=== PATIENT | male | born 1975 | race Caucasian/White ===

== ENCOUNTER 2017-11-28 07:51 | Inpatient (IN) | payer BC ==
[2017-11-28] VITALS (9 sets, daily range): BP systolic 122–147; BP diastolic 63–84; PULSE 80–97; RESP 18–20; TEMP 98.2–99.7; O2SAT 93–97
[~2017-11-28] VITALS: Ht 185.4 cm; Wt 101.0 kg
[~2017-11-28 07:51] MED LIST: ALBU17I INH; ALBU8I INH; DUONI NEB; PRED10 PO; PROP1TAB66 PO; PROT40TA PO; RIFA550 PO; TIOT18I INH; URSO300 PO
[2017-11-28] MEDS ORDERED: URSO300C2 PO (08:09)
[2017-11-28] MEDS ORDERED: PANT40TA3 PO (08:09)
[2017-11-28] MEDS ORDERED: SPIR25TA PO (08:09)
[2017-11-28] MEDS ORDERED: FURO20TA PO (08:09)
[2017-11-28] MEDS ORDERED: CARV6.252 PO (08:09)
[2017-11-28] MEDS ORDERED: KLOR10TA PO (08:09)
[2017-11-28] MEDS ORDERED: LORazepam 2 MG/ML VIAL IV PUSH ONE (08:15)
[2017-11-28 08:24] LABS: AUTOMATED NEUTROPHIL # 4.6 TH/MM3 (1.8-7.7); BASOPHIL # 0.1 TH/MM3 (0-0.2); EOSINOPHIL % 0.6 % (0.0-4.0); HEMATOCRIT 36.2 % (39.0-51.0); HEMOGLOBIN 12.7 GM/DL (13.0-17.0); LYMPH % 6.7 % (9.0-44.0); LYMPHOCYTE # 0.4 TH/MM3 (1.0-4.8); MEAN CELL VOLUME 100.3 FL (80.0-100.0); MEAN CORPUSCULAR HEMOGLOBIN 35.1 PG (27.0-34.0); MEAN PLATELET VOLUME 9.1 FL (7.0-11.0); MONO % 11.9 % (0.0-8.0); MONOCYTE # 0.7 TH/MM3 (0-0.9); NEUT % 79.8 % (16.0-70.0); RED BLOOD COUNT 3.61 MIL/MM3 (4.50-5.90); RED CELL DISTRIBUTION WIDTH 20.9 % (11.6-17.2); WHITE BLOOD COUNT 5.7 TH/MM3 (4.0-11.0)
--- NOTE | 2017-11-28 08:30 | PD ---
HPI Chief Complaint: Seizure Time Seen by Provider: 08:04 Travel History International Travel<30 days: No Contact w/Intl Traveler<30days: No Traveled to known affect area: No History of Present Illness HPI 42yo M with PMH of alcohol abuse, cirrhosis presents to the ED with a possible seizure today. Pt has been trying to wean himself off alcohol, last drink was 3 days ago. As per nurse, pt's said he was not feeling well so helped him down and he had a seizure. Denies any fever, chest pain, sob, n/v, abdominal pain, focal weakness or numbness. Pt is AAOx3. PFSH Past Medical History Arthritis: Yes (OSTEO) Asthma: Yes Anxiety: No Depression: No Heart Rhythm Problems: No Cancer: No Cardiovascular Problems: Yes (HTN) High Cholesterol: No Chest Pain: No Congestive Heart Failure: No Cirrhosis: Yes COPD: No Cerebrovascular Accident: No Diminished Hearing: No Endocrine: Yes GERD: Yes Genitourinary: No Hiatal Hernia: No Hypertension: Yes Immune Disorder: No Inguinal Hernia: Yes (SURGICAL REPAIR) Implanted Vascular Access Dvce: Yes Musculoskeletal: Yes Neurologic: Yes Psychiatric: No Reproductive: No Respiratory: Yes (ASTHMA) Migraines: No Pneumonia: Yes Seizures: No Sleep Apnea: No Thyroid Disease: Yes (HAD THYROID RADIATED IN MIDDLE SCHOOL) Ulcer: No Tetanus Vaccination: > 5 Years Influenza Vaccination: No Past Surgical History Abdominal Surgery: Yes (RIGHT INGUINAL HERNIA REPAIR) AICD: No Arteriovenous Shunt: No Gynecologic Surgery: Yes Insulin Pump: No Joint Replacement: No Oral Surgery: Yes (WISDOM TEETH) Pacemaker: No Social History Alcohol Use: Yes (HX OF ALCOHOLISM) Tobacco Use: No Substance Use: No Allergies-Medications (Allergen,Severity, Reaction): Coded Allergies: No Known Allergies (Verified , 03/25/16) Reported Meds & Prescriptions Reported Meds & Active Scripts Active Reported Pantoprazole (Pantoprazole Sodium) 40 Mg Tab 40 Mg PO DAILY Furosemide 20 Mg Tab 20 Mg PO BID Carvedilol 6.25 Mg Tab 6.25 Mg PO BID Spironolactone 25 Mg Tab 25 Mg PO DAILY Klor-Con 10 (Potassium Chloride) 10 Meq Tab 10 Meq PO DAILY Ursodiol 300 Mg Cap 300 Mg PO BID Review of Systems Except as stated in HPI: all other systems reviewed are Neg Physical Exam Narrative GENERAL: 42yo M in mild distress. SKIN: Focused skin assessment warm/dry. Jaundice. HEAD: Atraumatic. Normocephalic. EYES: Pupils equal and round at 4mm bilaterally. +Sclera icterus. ENT: No nasal bleeding or discharge. Mucous membranes pink and moist. NECK: Trachea midline. No JVD. CARDIOVASCULAR: Regular rate and rhythm. No murmur appreciated. RESPIRATORY: No accessory muscle use. Clear to auscultation. Breath sounds equal bilaterally. GASTROINTESTINAL: Abdomen soft, non-tender, nondistended. MUSCULOSKELETAL: +Ecchymoses in left scapula that appears old. +Ecchymoses in right humerus. Distal pulses intact. NEUROLOGICAL: Awake and alert. No obvious cranial nerve deficits. Motor grossly within normal limits. Normal speech. Mild resting tremors in bilateral hands. Mild tongue fasciculations. +Bite etienne on bite but no active bleeding or laceration that needs repair. Data Data Last Documented VS Vital Signs Date Time Temp Pulse Resp B/P (MAP) Pulse Ox O2 Delivery O2 Flow Rate FiO2 11/28/17 07:58 98.3 94 20 133/79 (97) 93 Orders Orders Complete Blood Count With Diff (11/28/17 08:04) Basic Metabolic Panel (Bmp) (11/28/17 08:04) Magnesium (Mg) (11/28/17 08:04) Chest, Single Ap (11/28/17 ) Ct Brain W/O Iv Contrast(Rout) (11/28/17 ) Alcohol (Ethanol) (11/28/17 08:04) Ammonia (11/28/17 08:14) Lorazepam Inj (Ativan Inj) (11/28/17 08:15) Lactulose Liq (Lactulose Liq) (11/28/17 09:00) Admit Order (Ed Use Only) (11/28/17 09:59) Labs Laboratory Tests Test 11/28/17 08:12 11/28/17 08:20 White Blood Count 5.7 TH/MM3 Red Blood Count 3.61 MIL/MM3 Hemoglobin 12.7 GM/DL Hematocrit 36.2 % Mean Corpuscular Volume 100.3 FL Mean Corpuscular Hemoglobin 35.1 PG Mean Corpuscular Hemoglobin Concent 35.0 % Red Cell Distribution Width 20.9 % Platelet Count 14 TH/MM3 Mean Platelet Volume 9.1 FL Neutrophils (%) (Auto) 79.8 % Lymphocytes (%) (Auto) 6.7 % Monocytes (%) (Auto) 11.9 % Eosinophils (%) (Auto) 0.6 % Basophils (%) (Auto) 1.0 % Neutrophils # (Auto) 4.6 TH/MM3 Lymphocytes # (Auto) 0.4 TH/MM3 Monocytes # (Auto) 0.7 TH/MM3 Eosinophils # (Auto) 0.0 TH/MM3 Basophils # (Auto) 0.1 TH/MM3 CBC Comment AUTO DIFF Differential Comment AUTO DIFF CONFIRMED Platelet Estimate RARE Platelet Morphology Comment NORMAL Target Cells 2+ Blood Urea Nitrogen 7 MG/DL Creatinine 0.80 MG/DL Random Glucose 171 MG/DL Calcium Level 7.9 MG/DL Magnesium Level 1.5 MG/DL Sodium Level 132 MEQ/L Potassium Level 3.4 MEQ/L Chloride Level 96 MEQ/L Carbon Dioxide Level 20.8 MEQ/L Anion Gap 15 MEQ/L Estimat Glomerular Filtration Rate 107 ML/MIN Total Bilirubin 18.1 MG/DL Direct Bilirubin 12.5 MG/DL Indirect Bilirubin 5.6 MG/DL Aspartate Amino Transf (AST/SGOT) 169 U/L Alanine Aminotransferase (ALT/SGPT) 27 U/L Alkaline Phosphatase 315 U/L Total Protein 7.1 GM/DL Albumin 2.6 GM/DL Lipase 199 U/L Ethyl Alcohol Level LESS THAN 3 MG/DL Ammonia 79 MCMOL/L MDM Medical Decision Making Medical Screen Exam Complete: Yes Emergency Medical Condition: Yes Interpretation(s) EKG: NSR 94bpm. LAD. No ST segment elevation or depression. TWI III. Differential Diagnosis Alcohol withdrawal seizure vs. ICH vs. intracranial mass vs. electrolyte abnormality Narrative Course 42yo M with PMH of cirrhosis and alcohol abuse here with possible seizure. Labs reviewed, thrombocytopenia at 14,000. This is much lower compare to his prior 2 years ago. Ammonia elevated at 79, pt given lactulose. CXR showed cardiomegaly. CT brain negative. Pt given ativan for alcohol withdrawal. Discussed with resident physician and admitted to their service. Diagnosis Primary Impression: Alcohol withdrawal Qualified Codes: F10.239 - Alcohol dependence with withdrawal, unspecified Additional Impression: Thrombocytopenia Admitting Information Admitting Physician Requests: Admit SunshinePorsha DO Nov 28, 2017 08:30
[2017-11-28 08:37] LABS: PLATELET COUNT 14 TH/MM3 (150-450)
[2017-11-28 08:38] LABS: BICARBONATE 20.8 MEQ/L (21.0-32.0); BLOOD UREA NITROGEN 7 MG/DL (7-18); CALCIUM 7.9 MG/DL (8.5-10.1); CHLORIDE 96 MEQ/L (98-107); GLOMERULAR FILTRATION RATE 107 ML/MIN (>89); GLUCOSE,RANDOM 171 MG/DL (74-106); MAGNESIUM 1.5 MG/DL (1.5-2.5); SODIUM (NA) 132 MEQ/L (136-145)
--- NOTE | 2017-11-28 08:42 | RADRPT ---
EXAM DATE/TIME: 11/28/2017 08:23 [facility] COMPARISON: CT BRAIN W/O CONTRAST, March 27, 2016, 21:05. INDICATIONS : New onset seizure RADIATION DOSE: 37.14 CTDIvol (mGy) MEDICAL HISTORY : Hypertension. Asthma SURGICAL HISTORY : None. ENCOUNTER: Initial ACUITY: 1 day PAIN SCALE: 1/10 LOCATION: cranial TECHNIQUE: Multiple contiguous axial images were obtained of the head. Using automated exposure control and adj ustment of the mA and/or kV according to patient size, radiation dose was kept as low as reasonably a chievable to obtain optimal diagnostic quality images. DICOM format image data is available electro nically for review and comparison. FINDINGS: CEREBRUM: The ventricles are normal for age. No evidence of midline shift, mass lesion, hemorrhage or acute in farction. No extra-axial fluid collections are seen. POSTERIOR FOSSA: The cerebellum and brainstem are intact. The 4th ventricle is midline. The cerebellopontine angle i s unremarkable. EXTRACRANIAL: The visualized portion of the orbits is intact. SKULL: The calvaria is intact. No evidence of skull fracture. CONCLUSION: No acute disease. Francesco Hernandez MD on November 28, 2017 at 8:37 Board Certified Radiologist. This report was verified electronically.
[2017-11-28] MEDS ORDERED: LACTULOSE SYRUP 20 GM/30 ML CUP PO ONE (09:00)
[2017-11-28 09:05] LABS: TARGET CELLS 2+ (NORMAL)
--- NOTE | 2017-11-28 09:33 | RADRPT ---
EXAM DATE/TIME: 11/28/2017 08:29 [facility] COMPARISON: CHEST SINGLE AP, March 31, 2016, 3:16. INDICATIONS : Patient fell and had episode of seizures, some shortness of breath. MEDICAL HISTORY : Hypertension. Osteoarthritis. Thyroid disease. Asthma. Gallbladder disease. GERD. Liver disease SURGICAL HISTORY : Oral surgery. Right inguinal hernia repair. Femur and humerus fracture repair ENCOUNTER: Initial ACUITY: 1 day PAIN SCORE: 0/10 LOCATION: upper chest FINDINGS: The cardiac silhouette is enlarged in transverse diameter. The lungs are free of acute parenchymal op acity. No effusions are identified. CONCLUSION: Cardiomegaly. No acute pulmonary disease. Artur Magaña MD on November 28, 2017 at 9:30 Board Certified Radiologist. This report was verified electronically.
--- NOTE | 2017-11-28 10:39 | HHI.HP ---
HPI Service Family Medicine Primary Care Physician No Primary Care Physician Admission Diagnosis Hepatic encephalopathy, withdrawal seizure Diagnoses: International Travel<30 Days: No Contact w/Intl Traveler<30days: No Known Affected Area: No History of Present Illness Mr. Connors is a 42yo white male past medical history of cirrhosis, HTN, and COPD presenting to the ED after a possible seizure at home. His reports that he got out of bed confused this morning. He then clenched up his arms and started shaking. His helped him to the floor where he continued to be clenched and shaking and was not responding to her when she was talking to him. She then called 911. He seemed to come back to when the EMS arrived at the house. He states that he does not remember anything that happened from this morning. He currently feels confused and tired. No achy muscles. Of note he quit drinking alcohol a day and a half ago. He would drink a 12 pack of beer a day at minimum up to a case a day. He had previously quit alcohol but started up again in September when his mother . He then decided to quit cold turkey. Lately he has been feeling shaky, having blurry vision. He is noticed easy bruising for a few weeks with or without trauma. He also has prolonged bleeding when he nicks himself shaving. No blood in his stool or urine. His noticed that he has been jaundiced for about 3 days. No abdominal pain. Sees Dr. Valdovinos in [place]. Last saw in October. Last hospitalized in March 2016 for alcohol withdrawal and jaundice. (Monika Oden MD R1) Review of Systems Constitutional: COMPLAINS OF: Fatigue, DENIES: Fever, Weight gain, Weight loss , Chills Eyes: COMPLAINS OF: Blurred vision Ears, nose, mouth, throat: DENIES: Tinnitus, Throat pain, Running Nose Respiratory: DENIES: Cough, Shortness of breath Cardiovascular: DENIES: Chest pain, Palpitations, Lower Extremity Edema Gastrointestinal: COMPLAINS OF: Vomiting (2x/day since quit alcohol, no blood) , DENIES: Abdominal pain, Black stools, Bloody stools Genitourinary: DENIES: Dysuria Musculoskeletal: DENIES: Joint pain, Muscle aches Integumentary: DENIES: Rash Hematologic/lymphatic: COMPLAINS OF: Bruising Neurologic: COMPLAINS OF: Tremor, DENIES: Headache, Paresthesias (Monika Oden MD R1) Past Family Social History Past Medical History Asthma HTN Cirrhosis Past Surgical History Right inguinal hernia repair Reported Medications Reported Meds & Active Scripts Active Reported Pantoprazole (Pantoprazole Sodium) 40 Mg Tab 40 Mg PO DAILY Furosemide 20 Mg Tab 20 Mg PO BID Carvedilol 6.25 Mg Tab 6.25 Mg PO BID Spironolactone 25 Mg Tab 25 Mg PO DAILY Klor-Con 10 (Potassium Chloride) 10 Meq Tab 10 Meq PO DAILY Ursodiol 300 Mg Cap 300 Mg PO BID (Monika Oedn MD R1) Allergies: Coded Allergies: No Known Allergies (Verified , 03/25/16) Family History Mother- leukemia Father- unknown medical hx Social History lives with in [place] Was employed in [employer] previously before mother became ill Alcohol- see above Cigarettes- quit 15 yrs ago Ilicit drugs- none (Monika Oden MD R1) Physical Exam Vital Signs Vital Signs Date Time Temp Pulse Resp B/P (MAP) Pulse Ox O2 Delivery O2 Flow Rate FiO2 11/28/17 07:58 98.3 94 20 133/79 (97) 93 Physical Exam GENERAL: This is a well-nourished, well-developed jaundiced patient sitting up in bed drinking water, in no apparent distress. SKIN: No rashes or lesions. Cool and dry. Ecchymoses on left forearm and left upper back. HEAD: Atraumatic. Normocephalic. EYES: Pupils equal round and reactive. Extraocular motions intact. Scleral icterus. No injection or drainage. ENT: Nose without bleeding, purulent drainage or septal hematoma. Throat without erythema, tonsillar hypertrophy or exudate. Uvula midline. Airway patent. Tongue with bilateral lacerations NECK: Trachea midline. No JVD or lymphadenopathy. Supple, nontender, no meningeal signs. CARDIOVASCULAR: Regular rate and rhythm without murmurs, gallops, or rubs. RESPIRATORY: Breath sounds equal bilaterally. No rales, or rhonchi. Diffuse coarse breath sounds and wheezing. GASTROINTESTINAL: Abdomen soft, non-tender, distended. No hepato-splenomegaly, or palpable masses. No guarding. +Fluid wave MUSCULOSKELETAL: Extremities without clubbing, cyanosis, or edema. No joint tenderness, effusion, or edema noted. No calf tenderness. NEUROLOGICAL: Awake and alert. Motor and sensory grossly within normal limits. Normal speech. Bilateral hand tremors. Laboratory Laboratory Tests Test 11/28/17 08:12 11/28/17 08:20 White Blood Count 5.7 Red Blood Count 3.61 Hemoglobin 12.7 Hematocrit 36.2 Mean Corpuscular Volume 100.3 Mean Corpuscular Hemoglobin 35.1 Mean Corpuscular Hemoglobin Concent 35.0 Red Cell Distribution Width 20.9 Platelet Count 14 Mean Platelet Volume 9.1 Neutrophils (%) (Auto) 79.8 Lymphocytes (%) (Auto) 6.7 Monocytes (%) (Auto) 11.9 Eosinophils (%) (Auto) 0.6 Basophils (%) (Auto) 1.0 Neutrophils # (Auto) 4.6 Lymphocytes # (Auto) 0.4 Monocytes # (Auto) 0.7 Eosinophils # (Auto) 0.0 Basophils # (Auto) 0.1 CBC Comment AUTO DIFF Differential Comment AUTO DIFF CONFIRMED Platelet Estimate RARE Platelet Morphology Comment NORMAL Target Cells 2+ Blood Urea Nitrogen 7 Creatinine 0.80 Random Glucose 171 Calcium Level 7.9 Magnesium Level 1.5 Sodium Level 132 Potassium Level 3.4 Chloride Level 96 Carbon Dioxide Level 20.8 Anion Gap 15 Estimat Glomerular Filtration Rate 107 Ethyl Alcohol Level LESS THAN 3 Ammonia 79 (Monika Oden MD R1) Result Diagram: 11/28/17 0812 11/28/17 0812 Imaging Last Impressions Head CT 11/28/17 0000 Signed Impressions: Service Date/Time: Tuesday, November 28, 2017 08:23 - CONCLUSION: No acute disease. Francesco Hernandez MD Chest X-Ray 11/28/17 0000 Signed Impressions: Service Date/Time: Tuesday, November 28, 2017 08:29 - CONCLUSION: Cardiomegaly. No acute pulmonary disease. Arutr Magaña MD (Monika Oden MD R1) Caprini VTE Risk Assessment Caprini VTE Risk Assessment: Mod/High Risk (score >= 2) VTE Pharm Contraindication: Thrombocytopenia(<50) Caprini Risk Assessment Model Point Value = 1 Point Value = 2 Point Value = 3 Point Value = 5 Age 41-60 Minor surgery BMI > 25 kg/m2 Swollen legs Varicose veins or History of unexplained or recurrent spontaneous Oral contraceptives or hormone replacement Sepsis (< 1 month) Serious lung disease, including pneumonia (< 1 month) Abnormal pulmonary function Acute myocardial infarction Congestive heart failure (< 1 month) History of inflammatory bowel disease Medical patient at bed rest Age 61-74 Arthroscopic surgery Major open surgery (> 45 min) Laparoscopic surgery (> 45 min) Malignancy Confined to bed (> 72 hours) Immobilizing plaster cast Central venous access Age >= 75 History of VTE Family history of VTE Factor V Leiden Prothrombin [id number] Lupus anticoagulant Anticardiolipin antibodies Elevated serum homocysteine Heparin-induced thrombocytopenia Other congenital or acquired thrombophilia Stroke (< 1 month) Elective arthroplasty Hip, pelvis, or leg fracture Acute spinal cord injury (< 1 month) Prophylaxis Regimen Total Risk Factor Score Risk Level Prophylaxis Regimen 0-1 Low Early ambulation 2 Moderate Order ONE of the following: *Sequential Compression Device (SCD) *Heparin 5000 units SQ BID 3-4 Higher Order ONE of the following medications: *Heparin 5000 units SQ TID *Enoxaparin/Lovenox 40 mg SQ daily (WT < 150 kg, CrCl > 30 mL/min) *Enoxaparin/Lovenox 30 mg SQ daily (WT < 150 kg, CrCl > 10-29 mL/min) *Enoxaparin/Lovenox 30 mg SQ BID (WT < 150 kg, CrCl > 30 mL/min) AND/OR *Sequential Compression Device (SCD) 5 or more Highest Order ONE of the following medications: *Heparin 5000 units SQ TID (Preferred with Epidurals) *Enoxaparin/Lovenox 40 mg SQ daily (WT < 150 kg, CrCl > 30 mL/min) *Enoxaparin/Lovenox 30 mg SQ daily (WT < 150 kg, CrCl > 10-29 mL/min) *Enoxaparin/Lovenox 30 mg SQ BID (WT < 150 kg, CrCl > 30 mL/min) AND *Sequential Compression Device (SCD) (Monika Oden MD R1) Assessment and Plan Assessment and Plan Mr. Connors is a 42yo white male with a PMH of cirrhosis, HTN, and COPD presenting with alcohol withdrawal. He is being admitted to our inpatient service. Code Status Full Code Discussed Condition With Drs. Cartagena and Heather (Monika Oden MD R1) Attending Attestation Patient seen and examined. Case reviewed and discussed with the resident team. Agree with plan of care as discussed with me and documented in the resident note. he was seen in his room on admission with his . he is extremely sick from his cirrhosis (Yoli Romreo MD) Problem List: (1) Alcohol withdrawal ICD Codes: F10.239 - Alcohol dependence with withdrawal, unspecified Status: Acute Plan: Quit drinking alcohol a day and a half ago. Likely had a seizure at home. * CIWA protocol, escalate care as needed * Seizure precautions * Rally pack (2) Thrombocytopenia ICD Codes: D69.6 - Thrombocytopenia, unspecified Status: Acute Plan: Platelets on admission at 14 * Repeat CBC at 1500 showed decrease of platelets to 12 * Transfuse platelets and repeat CBC (3) Hyponatremia ICD Codes: E87.1 - Hypo-osmolality and hyponatremia Status: Acute Plan: Admission was 132 * Fluid restrict to 2 L/day * Continue to monitor (4) Alcoholic liver disease ICD Codes: K70.9 - Alcoholic liver disease, unspecified Status: Chronic Plan: Patient admits to drinking admitted by him a 12 pack of beer a day. ABC shows macrocytic anemia. AST greater than ALT on hepatic function panel. Ammonia level is elevated to 79. MELD score is 26 with a 19.6% estimated 3-month mortality * Will calculate MELD score once coag profile has returned * Ordered hepatitis panel * Lactulose 30 mL's P0 3 times a day * Continue at home medications of furosemide and spironolactone * Restrict sodium to 2 g a day (5) Macrocytic anemia ICD Codes: D53.9 - Nutritional anemia, unspecified Status: Acute Plan: Most likely from his chronic alcoholism * Will continue to monitor (6) Hypertension ICD Codes: I10 - Essential (primary) hypertension Plan: * Exam home medication of carvedilol (7) COPD (chronic obstructive pulmonary disease) ICD Codes: J44.9 - Chronic obstructive pulmonary disease, unspecified Plan: * DuoNeb nebs as needed (8) FEN Status: Acute Plan: Fluids: tolerating PO Electrolytes: monitor and replete as needed Nutrition: heart-healthy diet DVT Prophylaxis: Early ambulation. Bilateral SCDs GI Prophylaxis: Pantoprazole Fever/pain management: Tylenol 650 mg po not to exceed 2000mg/day (Monika Oden MD R1) Physician Certification 2 Midnight Certification Type: Admission for Inpatient Services Order for Inpatient Services The services are ordered in accordance with Medicare regulations or non- Medicare payer requirements, as applicable. In the case of services not specified as inpatient-only, they are appropriately provided as inpatient services in accordance with the 2-midnight benchmark. Estimated LOS (days): 2 days is the estimated time the patient will need to remain in the hospital, assuming treatment plan goals are met and no additional complications. Post-Hospital Plan: Not yet determined (Monika Oden MD R1) Problem Qualifiers (1) Alcohol withdrawal: Qualified Codes: F10.239 - Alcohol dependence with withdrawal, unspecified (2) Hypertension: Qualified Codes: I10 - Essential (primary) hypertension (3) COPD (chronic obstructive pulmonary disease): Qualified Codes: J44.9 - Chronic obstructive pulmonary disease, unspecified Monika Oden MD R1 Nov 28, 2017 10:39 Yoli Romero MD Nov 29, 2017 14:06
[2017-11-28] MEDS ORDERED: LORazepam 2 MG TAB PO PRN (11:00)
[2017-11-28] MEDS ORDERED: SODIUM CHLORIDE 0.9% FLUSH 10 ML FLUSH IV FLUSH PRN (11:00)
[2017-11-28] MEDS ORDERED: FLUMAZENIL 0.5 MG/5 ML VIAL IV PUSH PRN (11:00)
[2017-11-28] MEDS ORDERED: LORazepam 1 MG TAB PO PRN (11:00)
[2017-11-28] MEDS ORDERED: RESP: ALBUTEROL 2.5 MG/IPRATROPIUM 0.5 MG NEB (SCH) NEB ONE (11:15)
[2017-11-28] MEDS: MULTIVITAMINS/MINERALS THERAPEUTIC TAB PO SCH (11:32)
[2017-11-28] MEDS: THIAMINE HCL 100 MG TAB PO SCH (11:32)
[2017-11-28] MEDS: FOLIC ACID 1 MG TAB PO SCH (11:32)
[2017-11-28 12:18] LABS: ALBUMIN 2.6 GM/DL (3.4-5.0); DIRECT BILIRUBIN ADULT 12.5 MG/DL (0.0-0.2)
[2017-11-28 12:20] LABS: INDIRECT BILIRUBIN 5.6 MG/DL (0.0-0.8); TOTAL BILIRUBIN ADULT 18.1 MG/DL (0.2-1.0); TOTAL PROTEIN 7.1 GM/DL (6.4-8.2)
[2017-11-28] MEDS ORDERED: POTASSIUM CHLORIDE 10 MEQ CONTROLLED RELEASE TAB PO ONE (13:15)
[2017-11-28] MEDS ORDERED: MAGNESIUM CHLORIDE 64 MG TAB PO ONE (13:15)
[2017-11-28] MEDS: LACTULOSE SYRUP 20 GM/30 ML CUP PO SCH ×2 (14:02→16:44)
[2017-11-28] MEDS: FUROSEMIDE 20 MG TAB PO SCH (16:43)
[2017-11-28 17:17] LABS: HEMATOCRIT 33.6 % (39.0-51.0); MEAN CELL VOLUME 99.7 FL (80.0-100.0); MEAN CORPUSCULAR HEMOGLOBIN 35.5 PG (27.0-34.0); MEAN CORPUSCULAR HGB CONC 35.6 % (32.0-36.0); MEAN PLATELET VOLUME 9.6 FL (7.0-11.0); RED BLOOD COUNT 3.37 MIL/MM3 (4.50-5.90); RED CELL DISTRIBUTION WIDTH 20.9 % (11.6-17.2); WHITE BLOOD COUNT 5.2 TH/MM3 (4.0-11.0)
[2017-11-28 17:20] LABS: PLATELET COUNT 12 TH/MM3 (150-450)
[2017-11-28] MEDS ORDERED: ACETAMINOPHEN 325 MG TAB PO PRN (18:45)
[2017-11-28 19:32] LABS: INTERNATIONAL NORMALIZED RATIO 1.7 RATIO; PROTHROMBIN TIME - PATIENT 17.4 SEC (9.8-11.6)
[2017-11-28] MEDS: CARVEDILOL 6.25 MG TAB PO SCH (21:14)
[2017-11-28] MEDS: SODIUM CHLORIDE 0.9% FLUSH 10 ML FLUSH IV FLUSH SCH (21:16)
--- NOTE | 2017-11-28 21:34 | EKG ---
Date Performed: 11/28/2017 Time Performed: 08:00:17 PTAGE: 42 years EKG: Sinus rhythm MODERATE INTRAVENTRICULAR CONDUCTION DELAY MODERATE VOLTAGE CRITERIA FOR LVH, CONSIDER NORMAL VARIAN T ABNORMAL RHYTHM ECG INTERPRETATION BASED ON A DEFAULT AGE OF 40 YEARS PREVIOUS TRACING : 03/25/2016 15.19 Compared to the previous tracing sinus tachycardia is no longer present DOCTOR: Bucky Spring Interpretating Date/Time 11/28/2017 21:32:08
[2017-11-28] MEDS: RESP: ALBUTEROL 2.5 MG/IPRATROPIUM 0.5 MG NEB (SCH) INH (22:42)
[2017-11-29] VITALS (10 sets, daily range): BP systolic 116–168; BP diastolic 57–82; PULSE 84–124; RESP 18–20; TEMP 97–98.7; O2SAT 92–98
[2017-11-29] MEDS ORDERED: IBUPROFEN 800 MG TAB PO PRN (01:15)
[2017-11-29] MEDS: RESP: ALBUTEROL 2.5 MG/IPRATROPIUM 0.5 MG NEB (SCH) INH ×5 (03:37→21:48)
[2017-11-29 08:47] LABS: HEMATOCRIT 33.3 % (39.0-51.0); HEMOGLOBIN 11.7 GM/DL (13.0-17.0); MEAN CELL VOLUME 100.4 FL (80.0-100.0); MEAN CORPUSCULAR HEMOGLOBIN 35.2 PG (27.0-34.0); MEAN CORPUSCULAR HGB CONC 35.1 % (32.0-36.0); RED BLOOD COUNT 3.32 MIL/MM3 (4.50-5.90); RED CELL DISTRIBUTION WIDTH 21.2 % (11.6-17.2); WHITE BLOOD COUNT 4.8 TH/MM3 (4.0-11.0)
[2017-11-29 08:51] LABS: PLATELET COUNT 10 TH/MM3 (150-450)
[2017-11-29] MEDS: SODIUM CHLORIDE 0.9% FLUSH 10 ML FLUSH IV FLUSH SCH ×2 (08:53→21:12)
[2017-11-29] MEDS: POTASSIUM CHLORIDE 10 MEQ CONTROLLED RELEASE TAB PO SCH (08:54)
[2017-11-29] MEDS: SPIRONOLACTONE 25 MG TAB PO SCH (08:54)
[2017-11-29] MEDS: CARVEDILOL 6.25 MG TAB PO SCH ×2 (08:54→21:12)
[2017-11-29] MEDS: FOLIC ACID 1 MG TAB PO SCH (08:54)
[2017-11-29] MEDS: MULTIVITAMINS/MINERALS THERAPEUTIC TAB PO SCH (08:54)
[2017-11-29] MEDS: THIAMINE HCL 100 MG TAB PO SCH (08:54)
[2017-11-29] MEDS: LACTULOSE SYRUP 20 GM/30 ML CUP PO SCH ×3 (08:55→17:39)
[2017-11-29] MEDS: NICOTINE 7 MG/24 HR PATCH T-DERMAL SCH (08:55)
[2017-11-29] MEDS ORDERED: PANTOPRAZOLE SOD 40 MG DELAYED RELEASE TAB PO SCH (09:00)
[2017-11-29 09:01] LABS: ALT (GPT) 25 U/L (12-78)
[2017-11-29 09:09] LABS: ALBUMIN 2.6 GM/DL (3.4-5.0); ALKALINE PHOSPHATASE 288 U/L (45-117); AST (GOT) 149 U/L (15-37); BICARBONATE 25.6 MEQ/L (21.0-32.0); BLOOD UREA NITROGEN 15 MG/DL (7-18); CALCIUM 8.4 MG/DL (8.5-10.1); CHLORIDE 96 MEQ/L (98-107); CREATININE 1.02 MG/DL (0.60-1.30); GLOMERULAR FILTRATION RATE 80 ML/MIN (>89); GLUCOSE,RANDOM 109 MG/DL (74-106); SODIUM (NA) 133 MEQ/L (136-145); TOTAL PROTEIN 6.6 GM/DL (6.4-8.2)
[2017-11-29 09:10] LABS: TOTAL BILIRUBIN ADULT 24.5 MG/DL (0.2-1.0)
[2017-11-29] MEDS ORDERED: PHYTONADIONE 10 MG/ML VIAL SQ ONE (09:15)
[2017-11-29] MEDS ORDERED: SODIUM CHLOR 0.9% 250 ML INJ 250 ML IV ONE ×3 (09:15→14:45)
[2017-11-29 09:18] LABS: BANDS 1 % (0-6); BASOPHILS 2 % (0-2); LYMPHOCYTES 8 % (9-44); MONOCYTES 13 % (0-8); NEUTROPHIL # MANUAL DIFF 3.6 TH/MM3 (1.8-7.7); POLYS (SEG NEUTROPHILS) 75 % (16-70)
[2017-11-29 09:19] LABS: TARGET CELLS 1+ (NORMAL)
[2017-11-29] MEDS: FUROSEMIDE 20 MG TAB PO SCH ×2 (09:35→17:39)
[2017-11-29] MEDS ORDERED: LORazepam 1 MG TAB PO ONE (10:00)
--- NOTE | 2017-11-29 10:02 | HHI.HP ---
HPI Service Family Medicine Primary Care Physician No Primary Care Physician Admission Diagnosis Hepatic encephalopathy, withdrawal seizure Diagnoses: (1) Alcohol withdrawal Diagnosis: Principal (2) Thrombocytopenia Diagnosis: Principal (3) Hyponatremia Diagnosis: Principal (4) Alcoholic liver disease Diagnosis: Principal (5) Macrocytic anemia Diagnosis: Principal (6) Hypertension Diagnosis: Principal (7) COPD (chronic obstructive pulmonary disease) Diagnosis: Principal (8) FEN Diagnosis: Principal International Travel<30 Days: No Contact w/Intl Traveler<30days: No Known Affected Area: No History of Present Illness Mr. Connors is a 42yo white male past medical history of cirrhosis, HTN, and COPD presented to the ED after a possible seizure at home. His reports that he got out of bed confused. He then clenched up his arms and started shaking. His helped him to the floor where he continued to be clenched and shaking and was not responding to her when she was talking to him. She then called 911. He seemed to come back to when the EMS arrived at the house. He states that he does not remember anything that happened from this morning. He was confused and tired. No achy muscles. Of note he quit drinking alcohol a day and a half prior to admission. He would drink a 12 pack of beer a day at minimum up to a case a day. He had previously quit alcohol but started up again in September when his mother . He then decided to quit cold turkey. Lately he has been feeling shaky, having blurry vision. He is noticed easy bruising for a few weeks with or without trauma. He also has prolonged bleeding when he nicks himself shaving. No blood in his stool or urine. His noticed that he has been jaundiced for about 3 days. No abdominal pain. Sees Dr. Valdovinos in [place]. Last saw in October. Last hospitalized in March 2016 for alcohol withdrawal and jaundice. He was starting to have more confusion today. he believed a tow truck brought him to the hospital. per his nurse he was not following directions and pulled out his iv which was giving him FFP. He was given a mg of ativan when we saw him but his CIWA scores were evidently low all night. Review of Systems Other Constitutional: COMPLAINS OF: Fatigue, DENIES: Fever, Weight gain, Weight loss , Chills Eyes: COMPLAINS OF: Blurred vision Ears, nose, mouth, throat: DENIES: Tinnitus, Throat pain, Running Nose Respiratory: DENIES: Cough, Shortness of breath Cardiovascular: DENIES: Chest pain, Palpitations, Lower Extremity Edema Gastrointestinal: COMPLAINS OF: Vomiting (2x/day since quit alcohol, no blood) , DENIES: Abdominal pain, Black stools, Bloody stools Genitourinary: DENIES: Dysuria Musculoskeletal: DENIES: Joint pain, Muscle aches Integumentary: DENIES: Rash Hematologic/lymphatic: COMPLAINS OF: Bruising Neurologic: COMPLAINS OF: Tremor, DENIES: Headache, Paresthesias Past Family Social History Past Medical History Asthma HTN Cirrhosis Past Surgical History Right inguinal hernia repair Allergies: Coded Allergies: No Known Allergies (Verified , 03/25/16) Family History Mother- leukemia Father- unknown medical hx Social History lives with in [place] Was employed in [employer] previously before mother became ill Alcohol- see above Cigarettes- quit 15 yrs ago Illicit drugs- none Physical Exam Vital Signs Vital Signs Date Time Temp Pulse Resp B/P (MAP) Pulse Ox O2 Delivery O2 Flow Rate FiO2 11/29/17 07:43 98.2 84 20 117/69 (85) 98 11/29/17 04:00 97.5 91 18 116/57 (76) 95 11/29/17 02:51 18 11/29/17 00:00 97.0 85 18 132/75 (94) 97 11/28/17 22:42 97 11/28/17 22:00 98.7 95 18 130/70 97 11/28/17 21:30 98.7 80 18 122/63 97 11/28/17 21:09 98.9 95 18 140/75 11/28/17 20:00 99.7 97 20 138/73 (94) 96 11/28/17 16:00 98.3 87 18 133/66 (88) 96 11/28/17 16:00 98.3 87 18 133/66 (88) 96 11/28/17 14:00 98.2 91 18 127/74 (91) 96 11/28/17 13:22 11/28/17 11:21 87 20 147/84 (105) 97 Room Air Physical Exam GENERAL: This is a well-nourished, well-developed very jaundiced patient sitting up in bed talking but a little confusion SKIN: No rashes or lesions. Cool and dry. Ecchymoses on left forearm and left upper back. plus petechiae and spider angioma HEAD: Atraumatic. Normocephalic. EYES: Pupils equal round and reactive. Extraocular motions intact. Scleral icterus. No injection or drainage. ENT: Nose without bleeding, purulent drainage or septal hematoma. Airway patent. Tongue with bilateral lacerations NECK: Trachea midline. No JVD or lymphadenopathy. Supple, nontender, no meningeal signs. CARDIOVASCULAR: Regular rate and rhythm without murmurs, gallops, or rubs. RESPIRATORY: Breath sounds equal bilaterally. No rales, or rhonchi. Diffuse coarse breath sounds and wheezing. GASTROINTESTINAL: Abdomen soft, non-tender, distended. No hepato-splenomegaly, or palpable masses. No guarding. +Fluid wave MUSCULOSKELETAL: Extremities without clubbing, cyanosis, or edema. No joint tenderness, effusion, or edema noted. No calf tenderness. NEUROLOGICAL: Awake and alert. Motor and sensory grossly within normal limits. Normal speech. Bilateral hand tremors. Laboratory Laboratory Tests Test 11/28/17 16:39 11/28/17 18:05 11/29/17 08:13 White Blood Count 5.2 4.8 Red Blood Count 3.37 3.32 Hemoglobin 12.0 11.7 Hematocrit 33.6 33.3 Mean Corpuscular Volume 99.7 100.4 Mean Corpuscular Hemoglobin 35.5 35.2 Mean Corpuscular Hemoglobin Concent 35.6 35.1 Red Cell Distribution Width 20.9 21.2 Platelet Count 12 10 Mean Platelet Volume 9.6 10.0 Prothrombin Time 17.4 Prothromb Time International Ratio 1.7 Activated Partial Thromboplast Time 35.6 CBC Comment AUTO DIFF Differential Total Cells Counted 100 Neutrophils % (Manual) 75 Band Neutrophils % 1 Lymphocytes % 8 Monocytes % 13 Eosinophils % 1 Basophils % 2 Neutrophils # (Manual) 3.6 Differential Comment FINAL DIFF MANUAL Platelet Estimate RARE Platelet Morphology Comment NORMAL Target Cells 1+ Blood Urea Nitrogen 15 Creatinine 1.02 Random Glucose 109 Total Protein 6.6 Albumin 2.6 Calcium Level 8.4 Alkaline Phosphatase 288 Aspartate Amino Transf (AST/SGOT) 149 Alanine Aminotransferase (ALT/SGPT) 25 Total Bilirubin 24.5 Sodium Level 133 Potassium Level 3.5 Chloride Level 96 Carbon Dioxide Level 25.6 Anion Gap 11 Estimat Glomerular Filtration Rate 80 Result Diagram: 11/29/17 0813 11/29/17 0813 Imaging Last Impressions Head CT 11/28/17 0000 Signed Impressions: Service Date/Time: Tuesday, November 28, 2017 08:23 - CONCLUSION: No acute disease. Francesco Hernandez MD Chest X-Ray 11/28/17 0000 Signed Impressions: Service Date/Time: Tuesday, November 28, 2017 08:29 - CONCLUSION: Cardiomegaly. No acute pulmonary disease. MD Alyssa Wilkins VTE Risk Assessment Caprinboubacar VTE Risk Assessment: Mod/High Risk (score >= 2) VTE Pharm Contraindication: Thrombocytopenia(<50) Caprini Risk Assessment Model Point Value = 1 Point Value = 2 Point Value = 3 Point Value = 5 Age 41-60 Minor surgery BMI > 25 kg/m2 Swollen legs Varicose veins or History of unexplained or recurrent spontaneous Oral contraceptives or hormone replacement Sepsis (< 1 month) Serious lung disease, including pneumonia (< 1 month) Abnormal pulmonary function Acute myocardial infarction Congestive heart failure (< 1 month) History of inflammatory bowel disease Medical patient at bed rest Age 61-74 Arthroscopic surgery Major open surgery (> 45 min) Laparoscopic surgery (> 45 min) Malignancy Confined to bed (> 72 hours) Immobilizing plaster cast Central venous access Age >= 75 History of VTE Family history of VTE Factor V Leiden Prothrombin [id number] Lupus anticoagulant Anticardiolipin antibodies Elevated serum homocysteine Heparin-induced thrombocytopenia Other congenital or acquired thrombophilia Stroke (< 1 month) Elective arthroplasty Hip, pelvis, or leg fracture Acute spinal cord injury (< 1 month) Prophylaxis Regimen Total Risk Factor Score Risk Level Prophylaxis Regimen 0-1 Low Early ambulation 2 Moderate Order ONE of the following: *Sequential Compression Device (SCD) *Heparin 5000 units SQ BID 3-4 Higher Order ONE of the following medications: *Heparin 5000 units SQ TID *Enoxaparin/Lovenox 40 mg SQ daily (WT < 150 kg, CrCl > 30 mL/min) *Enoxaparin/Lovenox 30 mg SQ daily (WT < 150 kg, CrCl > 10-29 mL/min) *Enoxaparin/Lovenox 30 mg SQ BID (WT < 150 kg, CrCl > 30 mL/min) AND/OR *Sequential Compression Device (SCD) 5 or more Highest Order ONE of the following medications: *Heparin 5000 units SQ TID (Preferred with Epidurals) *Enoxaparin/Lovenox 40 mg SQ daily (WT < 150 kg, CrCl > 30 mL/min) *Enoxaparin/Lovenox 30 mg SQ daily (WT < 150 kg, CrCl > 10-29 mL/min) *Enoxaparin/Lovenox 30 mg SQ BID (WT < 150 kg, CrCl > 30 mL/min) AND *Sequential Compression Device (SCD) Assessment and Plan Assessment and Plan Mr. Connors is a 42 yo white male with a PMH of cirrhosis, HTN, and COPD presenting with alcohol withdrawal. He is being admitted to our inpatient service. Problem List: (1) Alcohol withdrawal ICD Codes: F10.239 - Alcohol dependence with withdrawal, unspecified Status: Acute Plan: Quit drinking alcohol a day and a half prior to admission. Likely had a seizure at home. * CIWA protocol, escalate care as needed * Seizure precautions * Rally pack * his liver is so poor librium would be a concern as the half life is so long even under normal circumstances. hopefully he can stay on the floor with CIWA and ativan. he needs restraints as his actions are compromising his care and he was wandering the yang and perhaps trying to leave the hospital as well as stopping his FFP (2) Thrombocytopenia ICD Codes: D69.6 - Thrombocytopenia, unspecified Status: Acute Plan: Platelets on admission at 14 * Repeat CBC at 1500 showed decrease of platelets to 12, now 10 * Transfused platelets and repeat CBC * called Hematology as he may have DIC. appreciate their help * getting platelets and FFP (3) Hyponatremia ICD Codes: E87.1 - Hypo-osmolality and hyponatremia Status: Acute Plan: Admission was 132. likely fluid overload from cirrhosis * Fluid restrict to 2 L/day * Continue to monitor (4) Alcoholic liver disease ICD Codes: K70.9 - Alcoholic liver disease, unspecified Status: Chronic Plan: Patient admits to drinking admitted by him a 12 pack of beer a day. ABC shows macrocytic anemia. AST greater than ALT on hepatic function panel. Ammonia level is elevated to 79. MELD score is 26-27 with a 19.6% estimated 3-month mortality * Will calculate MELD score once coag profile has returned * Ordered hepatitis panel * Lactulose 30 mL's P0 3 times a day * Continue at home medications of furosemide and spironolactone * Restrict sodium to 2 g a day * discussed with Mr Dong how terrible his liver is and that this is life threatening. offered help in quitting alcohol. (5) Macrocytic anemia ICD Codes: D53.9 - Nutritional anemia, unspecified Status: Acute Plan: Most likely from his chronic alcoholism * Will continue to monitor (6) Hypertension ICD Codes: I10 - Essential (primary) hypertension Plan: * continue home medication of carvedilol (7) COPD (chronic obstructive pulmonary disease) ICD Codes: J44.9 - Chronic obstructive pulmonary disease, unspecified Plan: * DuoNeb nebs as needed (8) FEN Status: Acute Plan: Fluids: tolerating PO Electrolytes: monitor and replete as needed Nutrition: heart-healthy diet DVT Prophylaxis: Early ambulation. Bilateral SCDs GI Prophylaxis: Pantoprazole Fever/pain management: Tylenol 650 mg po not to exceed 2000mg/day Problem Qualifiers (1) Alcohol withdrawal: Qualified Codes: F10.239 - Alcohol dependence with withdrawal, unspecified (2) Hypertension: Qualified Codes: I10 - Essential (primary) hypertension (3) COPD (chronic obstructive pulmonary disease): Qualified Codes: J44.9 - Chronic obstructive pulmonary disease, unspecified Yoli Romero MD Nov 29, 2017 10:02
[2017-11-29] MEDS: LORazepam 2 MG/ML VIAL IV PUSH PRN ×4 (14:25→21:56)
[2017-11-29] MEDS ORDERED: diphenhydrAMINE HCL 25 MG CAP PO PRN (14:45)
[2017-11-29] MEDS ORDERED: PHYTONADIONE 5 MG/SWFI 5 ML ORAL SYR PO ONE (14:45)
[2017-11-29] MEDS: chlordiazePOXIDE 25 MG CAP PO SCH ×2 (15:44→21:12)
--- NOTE | 2017-11-29 16:10 | PD.CONS ---
HPI History of Present Illness This is a 42 year old male with hx cirrhosis, ETOH abuse who presented after family thought he had a seizure. Family at bedside reports he was drinking and then quit recently. No hematemesis. His urine has been dark. Historically drinks 12 pk beer daily. SEen for similar in 2016, jaundice and ETOH withdrawal. Pt noncontributory. Limited hx. PFSH Past Medical History etoh abuse HTN COPD cirrhosis Past Surgical History right inguinal hernia repair Coded Allergies: No Known Allergies (Verified , 03/25/16) Family History leukemia Social History heavy drinker quit smoking 15y ago no illicit drug use Review of Systems noncontributory GI Exam Vitals I&O Vital Signs Date Time Temp Pulse Resp B/P (MAP) Pulse Ox O2 Delivery O2 Flow Rate FiO2 11/29/17 10:30 98.3 97 20 125/76 96 11/29/17 10:29 98.3 97 20 125/70 96 11/29/17 10:00 97.5 95 18 119/70 98 11/29/17 07:43 98.2 84 20 117/69 (85) 98 11/29/17 04:00 97.5 91 18 116/57 (76) 95 11/29/17 02:51 18 11/29/17 00:00 97.0 85 18 132/75 (94) 97 11/28/17 22:42 97 11/28/17 22:00 98.7 95 18 130/70 97 11/28/17 21:30 98.7 80 18 122/63 97 11/28/17 21:09 98.9 95 18 140/75 11/28/17 20:00 99.7 97 20 138/73 (94) 96 11/28/17 16:00 98.3 87 18 133/66 (88) 96 11/28/17 16:00 98.3 87 18 133/66 (88) 96 I/O 11/28/17 11/28/17 11/28/17 11/29/17 11/29/17 11/29/17 07:00 15:00 23:00 07:00 15:00 23:00 Intake Total 651 ml Output Total 300 ml Balance -300 ml 651 ml Intake FFP 342 ml Platelets 282 ml Blood Product IV Normal Saline Flush 27 ml Output Urine Total 300 ml # Voids 1 2 Imaging Last Impressions Head CT 11/28/17 0000 Signed Impressions: Service Date/Time: Tuesday, November 28, 2017 08:23 - CONCLUSION: No acute disease. Francesco Hernandez MD Chest X-Ray 11/28/17 0000 Signed Impressions: Service Date/Time: Tuesday, November 28, 2017 08:29 - CONCLUSION: Cardiomegaly. No acute pulmonary disease. Artur Magaña MD Laboratory Test 11/28/17 16:39 11/28/17 18:05 11/29/17 08:13 11/29/17 10:00 White Blood Count 5.2 TH/MM3 4.8 TH/MM3 Red Blood Count 3.37 MIL/MM3 3.32 MIL/MM3 Hemoglobin 12.0 GM/DL 11.7 GM/DL Hematocrit 33.6 % 33.3 % Mean Corpuscular Volume 99.7 FL 100.4 FL Mean Corpuscular Hemoglobin 35.5 PG 35.2 PG Mean Corpuscular Hemoglobin Concent 35.6 % 35.1 % Red Cell Distribution Width 20.9 % 21.2 % Platelet Count 12 TH/MM3 10 TH/MM3 Mean Platelet Volume 9.6 FL 10.0 FL Prothrombin Time 17.4 SEC Prothromb Time International Ratio 1.7 RATIO Activated Partial Thromboplast Time 35.6 SEC CBC Comment AUTO DIFF Differential Total Cells Counted 100 Neutrophils % (Manual) 75 % Band Neutrophils % 1 % Lymphocytes % 8 % Monocytes % 13 % Eosinophils % 1 % Basophils % 2 % Neutrophils # (Manual) 3.6 TH/MM3 Differential Comment FINAL DIFF MANUAL Platelet Estimate RARE Platelet Morphology Comment NORMAL Target Cells 1+ Blood Urea Nitrogen 15 MG/DL Creatinine 1.02 MG/DL Random Glucose 109 MG/DL Total Protein 6.6 GM/DL Albumin 2.6 GM/DL Calcium Level 8.4 MG/DL Alkaline Phosphatase 288 U/L Aspartate Amino Transf (AST/SGOT) 149 U/L Alanine Aminotransferase (ALT/SGPT) 25 U/L Total Bilirubin 24.5 MG/DL Sodium Level 133 MEQ/L Potassium Level 3.5 MEQ/L Chloride Level 96 MEQ/L Carbon Dioxide Level 25.6 MEQ/L Anion Gap 11 MEQ/L Estimat Glomerular Filtration Rate 80 ML/MIN Blood Smear Pathologist Review Physical Examination HEENT: normocephalic; atraumatic; icteric CARDIAC: tachy ABDOMEN: Soft, distended,diffuse TTP; + hepatosplenomegaly; bs + EXTREMITIES: No clubbing, cyanosis, or edema. SKIN: Normal; no rash; significant jaundice. FIELD CAPTAIN: tremulous, confused Assessment and Plan Plan ASSESSMENT - jaundice, elev LFTs - likely ETOH hepatitis. acute on chronic. hx heavy drinking. DF 49. MELD 25. NH 79. will get live w/u r/o other cause. hep panel pending. - anemia - macrocytic. no report bleeding. - thrombocytopenia - PLT 10 - ETOH withdrawal, hepatic encephalopathy per primary PLAN - liver w/u - IV solumedrol - pentoxifylline - trental - xifaxan - CT abd - monitor labs - further recs as case unfolds Pt seen by Dr Medeiros and myself and this note is written on his behalf Geno Cardenas Nov 29, 2017 16:09
--- NOTE | 2017-11-29 17:03 | MB ---
cc: MAYCOL OLIVO MD DATE OF CONSULTATION: 11/29/2017. REASON FOR CONSULTATION: Patient with critical thrombocytopenia with platelet count of 10,000 associated with abnormal PT/PTT and INR levels. REQUESTING PHYSICIAN: Consult requested by the Family Medicine Service. CHIEF COMPLAINT: Mr. Cortés is unable to provide a cohesive history. He is an individual with a long history of alcohol abuse and alcohol abuse-related liver cirrhosis. He was brought into the emergency department after he suffered a seizure from alcohol withdrawal at home. He is actively withdrawing from alcohol at this time. In the room with me and the patient is his , the primary medical team and the patient's nurse. HISTORY OF PRESENT ILLNESS: Mr. Cortés is a 42-year-old male with an extensive past history of alcohol abuse, he has alcohol-related liver cirrhosis and has undergone multiple hospitalizations for alcohol-related issues including withdrawal. He was brought into the hospital yesterday because he had a seizure. The seizure is presumed to be secondary to alcohol withdrawal. Hematology has been asked to see the patient for further workup and evaluation of critical thrombocytopenia. PAST MEDICAL HISTORY: 1. Alcohol abuse. 2. Alcohol abuse-related hepatic cirrhosis. 3. Asthma. 4. Hypertension. PAST SURGICAL HISTORY: Right inguinal hernia repair. ALLERGIES: NO KNOWN DRUG ALLERGIES. FAMILY HISTORY: Mother recently of leukemia. Father with unknown medical history. SOCIAL HISTORY: The patient lives at home with his , he was previously a highway truck driver. Alcohol abuse. Tobaccoism but quit 15 years ago. CURRENT INPATIENT MEDICATIONS: 1. Tylenol 650 milligrams p.o. q. 6 hours as needed for fever. 2. DuoNebs one amp every six hours as needed for wheezing. 3. Coreg 6.25 milligrams p.o. twice a day. 4. Flumazenil 0.2 milligrams IV every minute as needed. 5. Folic acid 1 milligram p.o. daily. 6. Lasix 20 milligrams p.o. twice a day. 7. Lactulose 30 mL p.o. three times a day. 8. Ativan 1 milligram p.o. q. 4 hours as needed for the fever protocol. 9. Nicotine patch 7 milligrams q. 24 hours. 10. Pantoprazole 40 milligrams p.o. daily. 11. Potassium chloride 10 milliequivalents p.o. daily. 12. Spironolactone 25 milligrams p.o. daily. 13. Thiamine 100 milligrams p.o. daily. REVIEW OF SYSTEMS: Unable to obtain as the patient is actively withdrawing. The denies any major issues such as fevers. She denies overt bleeding specifically epistaxis or hematochezia. She does report easy bruising. Seizure activity was reported. She reports the patient has been jaundiced for the past three or four days. No other complaints reported. PHYSICAL EXAMINATION: VITAL SIGNS: Temperature 98.7 degrees Fahrenheit, heart rate 97 beats a minute, respiratory rate 20, blood pressure 125/76, O2 sat 96% on room air. GENERAL PHYSICAL APPEARANCE: Mr. Cortés is a young male, he is tall, he is of moderate build, he is grossly icteric, he appears to be anxious, agitated, he is unable to focus and continuously pacing in the room. HEAD, EYES, EARS, NOSE, THROAT: Head atraumatic, normocephalic. Conjunctivae are non-pale. The sclerae are deeply icteric. ORAL EXAM: No pharyngeal erythema. He has mucosal icterus. NECK EXAM: No palpable cervical or supraclavicular lymphadenopathy. RESPIRATORY EXAM: Good air movement bilaterally without any added breath sounds. CARDIOVASCULAR EXAM: Tachycardic, regular, S1-S2. No obvious murmurs, rubs or gallops. ABDOMINAL EXAM: Protuberant belly, soft, he has subcutaneous varices noted. I think the spleen does appear to be enlarged as does the liver. Positive bowel sounds. LOWER EXTREMITIES: Bilateral pretibial edema. No calf tenderness. SKIN: Icteric with extensive bruising and ecchymotic lesions. LABORATORY FINDINGS: Blood work dated 11/29/2017: WBC count 4.8, hemoglobin 11.7 gm/dl, hematocrit 33.3%, MCV 100.4, platelet count of 10, absolute neutrophil count 3.6. Chemistries: Sodium 133, potassium 3.5, chloride 96, bicarb 25.6, BUN 15, creatinine 1, EGFR 80, random glucose 109, calcium 8.4, total bilirubin 24.5, direct bilirubin 12.5, indirect bilirubin 5.6, AST 149, ALT 25, alkaline phosphatase 288, albumin 2.6. ASSESSMENT: Mr. Cortés is a 42-year-old male with a history of alcohol-related liver cirrhosis. He presents with decompensated liver failure due to a 3-month alcohol binge. His tells me the patient drinks between 12 cans of beer a day and one case of beer per day. Over the past five days per the , the patient has been increasingly jaundiced and yesterday developed an alcohol withdrawal seizure because he went a few hours without drinking. He was brought into the emergency department and was noted to have a total bilirubin level of close to 20. His liver function enzymes were deranged. He is actively in delirium tremens. Platelet count was noted to be 15,000 at presentation and has since then dropped down to 10,000. Though he is not actively bleeding, he does have extensive bruising on his arms. His coags are significantly deranged with elevated PT/PTT and INR levels. RECOMMENDATIONS: 1. Thrombocytopenia secondary to suspected alcohol-related bone marrow toxicity and high splenic sequestration. I would recommend supportive platelet transfusions. 2. Deranged coags: Transfuse fresh frozen plasma as needed to maintain coags. I agree with vitamin K supplementation, I would recommend this be performed oral replacement because subcu likely is not optimally effective and bioavailability is limited. IV is also a reasonable way to deliver vitamin K, though this can result in anaphylaxis. Hematology will follow along with you. He will likely need aggressive supportive care, especially as he goes through delirium tremens. As per the patients primary team and nursing staff, he has already pulled out multiple IVs and resulted in significant bleeding so far. MD MATTHEW oRdriguez/SHAHEEN /2:19 PM /4:23 PM
[2017-11-29] MEDS: methylPREDNISolone SOD SUCC 125 MG/2 ML VIAL IV PUSH SCH (17:35)
[2017-11-29 18:43] LABS: INTERNATIONAL NORMALIZED RATIO 1.8 RATIO; PROTHROMBIN TIME - PATIENT 17.8 SEC (9.8-11.6)
[2017-11-29 18:46] LABS: D-DIMER 3.06 MG/L FEU (0.00-0.50)
--- NOTE | 2017-11-29 19:34 | RADRPT ---
EXAM DATE/TIME: 11/29/2017 16:26 [facility] COMPARISON: No previous studies available for comparison. INDICATIONS : Cirrhosis and possible spleen sequestration. MEDICAL HISTORY : Thyroid disease. Seizures. Hypertension. Gall bladder disease. Hernia. GERD. Liver disease. ET OH. SURGICAL HISTORY : Right inguinal hernia. Orthopaedic surgery. ENCOUNTER: Subsequent ACUITY: 1 day PAIN SCORE: 0/10 LOCATION: Bilateral upper quadrant MEASUREMENTS: LIVER: 19.0 cm length COMMON DUCT: 8 mm RIGHT KIDNEY: 11.4 x 5.2 x 6.7 cm LEFT KIDNEY: 12.1 x x 5.1 cm SPLEEN: 20.3 cm length AORTA: 1.3cm maximal FINDINGS: LIVER: Heterogeneous hyperechoic texture of the liver without evidence of focal space-occupying lesion. Live r is mildly to moderately enlarged. Portal vein is patent. There is no evidence of biliary duct dilat ation. COMMON DUCT: Common bile duct is mildly enlarged measuring 8 mm. GALLBLADDER: Hyperechoic stones identified the gallbladder. Gallbladder wall is mildly thickened. There is no candido cholecystic fluid PANCREAS: Not visualized due to gas. RIGHT KIDNEY: No hydronephrosis, stone or mass. LEFT KIDNEY: No hydronephrosis, stone or mass. SPLEEN: Moderately to markedly enlarged. AORTA: Non aneurysmal. IVC: Within normal limits. CONCLUSION: 1. Hepatosplenomegaly 2. Chronic appearing parenchymal liver disease with suspected steatosis. 3. Cholelithiasis 4. Mild prominence of the common bile measured 8 mm. Bernabe Lutz MD on November 29, 2017 at 19:28 Board Certified Radiologist. This report was verified electronically.
[2017-11-29] MEDS: REMOVE OLD PATCH T-DERMAL SCH (21:00)
[2017-11-29] MEDS: PENTOXIFYLLINE 400 MG CONTROLLED RELEASE TAB PO SCH ×2 (21:12→22:00)
[2017-11-29] MEDS: RIFAXIMIN 550 MG TAB PO SCH (21:12)
[2017-11-29 21:32] LABS: HEMATOCRIT 33.8 % (39.0-51.0); MEAN CELL VOLUME 103.4 FL (80.0-100.0); MEAN CORPUSCULAR HEMOGLOBIN 36.6 PG (27.0-34.0); MEAN CORPUSCULAR HGB CONC 35.4 % (32.0-36.0); PLATELET COUNT 39 TH/MM3 (150-450); RED BLOOD COUNT 3.27 MIL/MM3 (4.50-5.90); RED CELL DISTRIBUTION WIDTH 21.2 % (11.6-17.2); WHITE BLOOD COUNT 5.4 TH/MM3 (4.0-11.0)
--- NOTE | 2017-11-29 22:37 | HHI.FPPN ---
Addendum to progress note ADDENDUM Reason for addendum: Additonal documentation Additional information Notified by RN of patient having a CIWA score of 28. Per RN, the patient has been disoriented and very agitated. Patient was seen and examined. Requested RN to repeat CIWA score which again is 28. The patient is unable to answer questions appropriately and is oriented only to person. In four point restraints , with visible tremors. No active hallucinations during examination, however per RN patient has been having hallucinations. GEN: Visibly jaundiced, bilateral hand tremors, in four point restraints, not significantly agitated or aggressive SKIN: Jaundiced. Ecchymoses on left forearm and left upper back. HEAD: Atraumatic. Normocephalic. EYES: EOMI. Scleral icterus. CARDIOVASCULAR: Tachycardic rate, regular rhythm, no m/r/g RESPIRATORY: Breath sounds equal bilaterally. Diffuse coarse breath sounds and wheezing. No rales or rhonchi. GASTROINTESTINAL: Abdomen soft, nontender, distended. + fluid wave MUSCULOSKELETAL: Extremities without edema. NEURO: Awake and alert. Oriented only to person, disoriented to place and time. Speech slurred. Bilateral hand tremors noted while in restraints. A/P: 42 year old male with PMH of cirrhosis, HTN, COPD admitted for etoh withdrawal and thrombocytopenia. Patient is having typical si/sxs of etoh withdrawal including hallucinations per RN and noted to have multiple CIWA scores elevated to 28 despite IV Ativan. - Patient may benefit from being started on Precedex drip - He is refusing PO medications, did receive 25 mg PO Librium x2 - Continue CIWA protocol - Case discussed with Dr. Simons, critical care - Will transfer patient to ICU with critical care consultation, appreciate recommendations Cecil Roberson MD R2 Nov 29, 2017 22:37
--- NOTE | 2017-11-29 23:58 | PD.CONS ---
HPI Service Critical Care Medicine Consult Requested By Primary Care Physician No Primary Care Physician History of Present Illness 42-year-old white male with alcoholic liver cirrhosis, HTN, and COPD presents after a possible seizure at home. Per chart review patient's reported that he got out of bed confused. He then clenched up his arms and started shaking. His helped him to the floor where he continued to be clenched and shaking and was not responding to her when she was talking to him. She then called 911. He seemed to come back to when the EMS arrived at the house. He states that he does not remember anything that happened from this morning. He was confused and tired. No achy muscles. Of note he quit drinking alcohol a day and a half prior to admission. He would drink a 12 pack of beer a day at minimum up to a case a day. He had previously quit alcohol but started up again in September when his mother . He then decided to quit cold turkey. Lately he has been feeling shaky, having blurry vision. He was admitted to medicine for with diagnosis of alcohol dependence when he developed severe alcohol withdrawal symptoms requiring to be transferred to ICU and started on Precedex drip. ROS - General Review of Systems ROS Unobtainable due to patient's altered mental status Past Family Social History Allergies: Coded Allergies: No Known Allergies (Verified , 03/25/16) Past Medical History Asthma HTN Alcoholic liver Cirrhosis Past Surgical History Right inguinal hernia repair Reported Medications Reported Meds & Active Scripts Active Reported Pantoprazole (Pantoprazole Sodium) 40 Mg Tab 40 Mg PO DAILY Furosemide 20 Mg Tab 20 Mg PO BID Carvedilol 6.25 Mg Tab 6.25 Mg PO BID Spironolactone 25 Mg Tab 25 Mg PO DAILY Klor-Con 10 (Potassium Chloride) 10 Meq Tab 10 Meq PO DAILY Ursodiol 300 Mg Cap 300 Mg PO BID Active Ordered Medications Current Medications Medications (Trade) Dose Ordered Sig/Jeremy Route PRN Reason Start Time Stop Time Status Last Admin Dose Admin Sodium Chloride (NS Flush) 2 ml UNSCH PRN IV FLUSH FLUSH AFTER USING IV ACCESS 11/28/17 11:00 Sodium Chloride (NS Flush) 2 ml BID IV FLUSH 11/28/17 21:00 11/29/17 21:12 Folic Acid (Folate) 1 mg DAILY PO 11/28/17 11:00 1/10/18 10:59 11/29/17 08:54 Thiamine HCl (Vitamin B1) 100 mg DAILY PO 11/28/17 11:00 11/29/17 08:54 Multivitamins/ Minerals Therapeutic (Theragran M Tab) 1 tab DAILY PO 11/28/17 11:00 12/03/17 10:59 11/29/17 08:54 Flumazenil (Romazicon Inj) 0.2 mg Q1M PRN IV PUSH SEE LABEL COMMENTS 11/28/17 11:00 Lorazepam (Ativan) 1 mg Q4H PRN PO CIWA 8 - 10 11/28/17 11:00 Lorazepam (Ativan Inj) 1 mg Q4H PRN IV PUSH CIWA 8 - 10 11/28/17 11:00 Lorazepam (Ativan) 2 mg Q2H PRN PO CIWA 11-14 11/28/17 11:00 Lorazepam (Ativan Inj) 2 mg Q2H PRN IV PUSH CIWA 11-14 11/28/17 11:00 Lorazepam (Ativan Inj) 2 mg Q1H PRN IV PUSH CIWA 15-20 11/28/17 11:00 11/29/17 18:45 Lorazepam (Ativan Inj) 2 mg Q15M PRN IV PUSH CIWA > 20 11/28/17 11:00 11/29/17 21:56 Lactulose (Lactulose Liq) 30 ml TID PO 11/28/17 13:00 11/29/17 14:27 Albuterol/ Ipratropium (Duoneb Neb) 1 ampule Q6HR NEB INH 11/28/17 16:00 11/29/17 08:33 Carvedilol (Coreg) 6.25 mg BID PO 11/28/17 21:00 11/29/17 21:12 Furosemide (Lasix) 20 mg BID@0900,1800 PO 11/28/17 18:00 11/29/17 09:35 Pantoprazole Sodium (Protonix) 40 mg DAILY PO 11/29/17 09:00 11/29/17 08:54 Potassium Chloride (KCl) 10 meq DAILY PO 11/29/17 09:00 11/29/17 08:54 Spironolactone (Aldactone) 25 mg DAILY PO 11/29/17 09:00 11/29/17 08:54 Acetaminophen (Tylenol) 650 mg Q6H PRN PO FEVER>100.4F PAIN 1 TO 10 11/28/17 18:45 Nicotine (Habitrol 7 Mg Patch.24 Hr) 1 patch DAILY T-DERMAL 11/29/17 09:00 Miscellaneous Information 1 HS T-DERMAL 11/29/17 21:00 Sodium Chloride 250 ml @ 15 mls/hr ONCE ONCE IV 11/29/17 09:15 11/30/17 01:54 Sodium Chloride 250 ml @ 15 mls/hr ONCE ONCE IV 11/29/17 09:30 11/30/17 02:09 11/29/17 10:53 Chlordiazepoxide (Librium) 25 mg BID PO 11/29/17 14:45 11/29/17 21:12 Sodium Chloride 250 ml @ 15 mls/hr ONCE ONCE IV 11/29/17 14:45 11/30/17 07:24 11/29/17 14:45 Diphenhydramine HCl (Benadryl) 25 mg Q4H PRN PO SEE LABEL COMMENTS 11/29/17 14:45 Methylprednisolone Sodium Succinate (SoluMEDROL INJ) 60 mg DAILY IV PUSH 11/29/17 16:00 11/29/17 17:35 Pentoxifylline (TRENtal SR) 400 mg Q8HR PO 11/29/17 16:00 11/29/17 22:00 Rifaximin (Xifaxan) 550 mg BID PO 11/29/17 21:00 11/29/17 21:12 Dexmedetomidine HCl (Precedex Inj) 52 mcg ONCE ONCE IV PUSH 11/30/17 00:15 11/30/17 00:16 UNV Dexmedetomidine HCl 200 mcg/ Sodium Chloride 52 ml @ 5.35 mls/hr TITRATE PRN IV SEDATION 11/30/17 00:15 UNV Family History Mother- leukemia Father- unknown medical hx Social History lives with in [place] Was employed in [employer] previously before mother became ill Alcohol- see above Cigarettes- quit 15 yrs ago Illicit drugs- none Physical Exam Vital Signs Vital Signs Date Time Temp Pulse Resp B/P (MAP) Pulse Ox O2 Delivery O2 Flow Rate FiO2 11/29/17 23:36 98.7 96 20 117/73 (88) 97 11/29/17 20:49 98.2 124 20 123/73 (90) 95 11/29/17 17:29 98.3 20 168/82 11/29/17 16:39 98.4 92 20 136/67 (90) 92 11/29/17 10:30 98.3 97 20 125/76 96 11/29/17 10:29 98.3 97 20 125/70 96 11/29/17 10:00 97.5 95 18 119/70 98 11/29/17 07:43 98.2 84 20 117/69 (85) 98 11/29/17 04:00 97.5 91 18 116/57 (76) 95 11/29/17 02:51 18 11/29/17 00:00 97.0 85 18 132/75 (94) 97 Physical Exam GEN: Visibly jaundiced, bilateral hand tremors, in four point restraints, not significantly agitated or aggressive SKIN: Jaundiced. Ecchymoses on left forearm and left upper back. HEAD: Atraumatic. Normocephalic. EYES: EOMI. Scleral icterus. CARDIOVASCULAR: Tachycardic rate, regular rhythm, no m/r/g RESPIRATORY: Breath sounds equal bilaterally. Diffuse coarse breath sounds and wheezing. No rales or rhonchi. GASTROINTESTINAL: Abdomen soft, nontender, distended. Positive ascites MUSCULOSKELETAL: Extremities without edema. NEURO: Awake and alert. Oriented only to person, disoriented to place and time. Speech slurred. Bilateral hand tremors noted while in restraints. Laboratory Laboratory Tests Test 11/29/17 08:13 11/29/17 10:00 11/29/17 16:52 11/29/17 21:09 White Blood Count 4.8 5.4 Red Blood Count 3.32 3.27 Hemoglobin 11.7 12.0 Hematocrit 33.3 33.8 Mean Corpuscular Volume 100.4 103.4 Mean Corpuscular Hemoglobin 35.2 36.6 Mean Corpuscular Hemoglobin Concent 35.1 35.4 Red Cell Distribution Width 21.2 21.2 Platelet Count 10 39 Mean Platelet Volume 10.0 9.0 CBC Comment AUTO DIFF Differential Total Cells Counted 100 Neutrophils % (Manual) 75 Band Neutrophils % 1 Lymphocytes % 8 Monocytes % 13 Eosinophils % 1 Basophils % 2 Neutrophils # (Manual) 3.6 Differential Comment FINAL DIFF MANUAL Platelet Estimate RARE Platelet Morphology Comment NORMAL Target Cells 1+ Blood Urea Nitrogen 15 Creatinine 1.02 Random Glucose 109 Total Protein 6.6 Albumin 2.6 Calcium Level 8.4 Alkaline Phosphatase 288 Aspartate Amino Transf (AST/SGOT) 149 Alanine Aminotransferase (ALT/SGPT) 25 Total Bilirubin 24.5 Sodium Level 133 Potassium Level 3.5 Chloride Level 96 Carbon Dioxide Level 25.6 Anion Gap 11 Estimat Glomerular Filtration Rate 80 Blood Smear Pathologist Review Prothrombin Time 17.8 Prothromb Time International Ratio 1.8 Activated Partial Thromboplast Time 34.6 Fibrinogen 244 D-Dimer Quantitative (PE/DVT) 3.06 Result Diagram: 11/29/17210811/29/17 0813 Septic Shock Reassessment Septic shock perfusion: reassessment completed Assessment and Plan Assessment and Plan Alcohol withdrawal - Precedex drip - CIWA protocol - Thiamine folate and multivitamins - Neuro checks per unit routine Liver cirrhosis - Xifaxan - Lactulose Ascites - Lasix - Spironolactone - Potassium replacement History of asthma - DuoNeb scheduled and when necessary Thrombocytopenia - Due to liver cirrhosis - Supportive care - Transfuse for signs of bleeding or platelets less than 10 Hypertension - Coreg - Lasix DVT GI prophylaxis - Teds SCDs - PPI - No pharmacological DVT prophylaxis due to severe thrombocytopenia and coagulopathy due to liver cirrhosis Critical Care: The total critical care time was 35 minutes. Time to perform other separately billable procedures was not included in the critical care time. Néstor Simons MD Nov 29, 2017 23:58
[2017-11-30] VITALS (15 sets, daily range): BP systolic 120–144; BP diastolic 73–90; PULSE 74–100; RESP 21–28; TEMP 97.1–98.7; O2SAT 88–100
[2017-11-30] MEDS ORDERED: DEXMEDETOMIDINE HCL 200 MCG/2 ML VIAL IV PUSH ONE (00:15)
[2017-11-30] MEDS: LORazepam 2 MG/ML VIAL IV PUSH PRN ×2 (00:22→20:55)
[2017-11-30] MEDS ORDERED: LORazepam 2 MG/ML VIAL IV ONE (01:15)
[2017-11-30] MEDS ORDERED: HALOPERIDOL LACTATE 5 MG/ML AMP IV ONE (01:15)
[2017-11-30] MEDS ORDERED: diphenhydrAMINE HCL 50 MG/ML VIAL IV ONE (01:15)
[2017-11-30] MEDS: DEXMEDETOMIDINE INJ 200 MCG in SODIUM CHLORIDE 0.9% INJ 50 ML IV PRN ×4 (02:17→09:36)
[2017-11-30] MEDS: RESP: ALBUTEROL 2.5 MG/IPRATROPIUM 0.5 MG NEB (SCH) INH ×4 (03:53→20:03)
[2017-11-30] MEDS: PENTOXIFYLLINE 400 MG CONTROLLED RELEASE TAB PO SCH ×3 (05:51→20:55)
[2017-11-30 06:30] LABS: INTERNATIONAL NORMALIZED RATIO 1.8 RATIO; PROTHROMBIN TIME - PATIENT 18.2 SEC (9.8-11.6)
[2017-11-30] MEDS ORDERED: IOHEXOL 350 MG/ML 10 ML VIAL (for RAD DIAG) IVCONTRAST ONE (06:36)
[2017-11-30 06:54] LABS: ALT (GPT) 29 U/L (12-78); IRON (FE) 73 MCG/DL (65-175)
--- NOTE | 2017-11-30 06:57 | RADRPT ---
EXAM DATE/TIME: 11/30/2017 06:32 [facility] COMPARISON: CT ABDOMEN & PELVIS W CONTRAST, March 02, 2015, 10:55. INDICATIONS : Cirrhosis. IV CONTRAST: 96 cc Omnipaque 350 (iohexol) IV ORAL CONTRAST: Patient refused oral contrast. RADIATION DOSE: 26.23 CTDIvol (mGy) MEDICAL HISTORY : Cardiovascular disease. Hypertension. Cirrhosis. SURGICAL HISTORY : Inguinal hernia repair. ENCOUNTER: Initial ACUITY: 1 day PAIN SCALE: Non-responsive LOCATION: abdomen TECHNIQUE: Volumetric scanning of the abdomen and pelvis was performed. Using automated exposure control and ad justment of the mA and/or kV according to patient size, radiation dose was kept as low as reasonably achievable to obtain optimal diagnostic quality images. DICOM format image data is available electro nically for review and comparison. FINDINGS: LOWER LUNGS: The visualized lower lungs are clear. LIVER: Diffuse contour nodularity of the liver capsule consistent with patient's history of cirrhosis. The l iver is mildly diffusely heterogeneous. No focal mass identified. Multiple small calcified gallstones in the gallbladder. Mild diffuse gallbladder wall thickening measuring 3-4 mm. SPLEEN: Marked splenomegaly spleen measuring 24 cm in craniocaudal dimension. PANCREAS: Within normal limits. KIDNEYS: Normal in size and shape. There is no mass, stone or hydronephrosis. ADRENAL GLANDS: Within normal limits. VASCULAR: Varices are noted adjacent to the stomach and distal esophagus. Recannulized umbilical vein noted. Ao rta normal diameter. BOWEL/MESENTERY: Small hiatal hernia. No evidence of bowel dilatation. No free air or free fluid. Appendix not identif ied. ABDOMINAL WALL: Within normal limits. RETROPERITONEUM: There is no lymphadenopathy. BLADDER: No wall thickening or mass. REPRODUCTIVE: Within normal limits. INGUINAL: There is no lymphadenopathy or hernia. MUSCULOSKELETAL: Within normal limits for patient age. CONCLUSION: 1. Evidence of cirrhosis and portal venous hypertension with marked splenomegaly and recannulized per iumbilical vein. 2. Cholelithiasis and mild nonspecific diffuse gallbladder wall thickening. Aly Collins MD on November 30, 2017 at 6:49 Board Certified Radiologist. This report was verified electronically.
[2017-11-30 07:06] LABS: % SATURATION IRON PROFILE 31.8 % (20-50); ALBUMIN 2.5 GM/DL (3.4-5.0); ALKALINE PHOSPHATASE 261 U/L (45-117); AST (GOT) 131 U/L (15-37); BICARBONATE 25.8 MEQ/L (21.0-32.0); BLOOD UREA NITROGEN 15 MG/DL (7-18); CALCIUM 8.3 MG/DL (8.5-10.1); CHLORIDE 102 MEQ/L (98-107); CREATININE 0.66 MG/DL (0.60-1.30); FERRITIN 325 NG/ML (26-388); GLOMERULAR FILTRATION RATE 133 ML/MIN (>89); GLUCOSE,RANDOM 131 MG/DL (74-106); SODIUM (NA) 136 MEQ/L (136-145); TOTAL BILIRUBIN ADULT 25.5 MG/DL (0.2-1.0); TOTAL IRON BINDING CAPACITY 230 MCG/DL (250-450); TOTAL PROTEIN 6.5 GM/DL (6.4-8.2)
[2017-11-30 07:07] LABS: HEMATOCRIT 30.5 % (39.0-51.0); MEAN CELL VOLUME 101.3 FL (80.0-100.0); MEAN CORPUSCULAR HEMOGLOBIN 36.4 PG (27.0-34.0); MEAN PLATELET VOLUME 9.4 FL (7.0-11.0); PLATELET COUNT 26 TH/MM3 (150-450); RED BLOOD COUNT 3.01 MIL/MM3 (4.50-5.90); WHITE BLOOD COUNT 3.5 TH/MM3 (4.0-11.0)
[2017-11-30 08:07] LABS: BANDS 3 % (0-6); BASOPHILS 1 % (0-2); LYMPHOCYTES 8 % (9-44); MONOCYTES 7 % (0-8); NEUTROPHIL # MANUAL DIFF 2.9 TH/MM3 (1.8-7.7); POLYS (SEG NEUTROPHILS) 81 % (16-70)
[2017-11-30 08:08] LABS: TARGET CELLS 2+ (NORMAL)
[2017-11-30] MEDS ORDERED: SODIUM PHOSPHATE INJ 30 MMOL in SODIUM CHLOR 0.9% 250 ML INJ 240 ML IV PRN (08:45)
[2017-11-30] MEDS ORDERED: POTASSIUM CHLORIDE 25 MEQ EFFERVESCENT TAB PO PRN (08:45)
[2017-11-30] MEDS ORDERED: MAGNESIUM OXIDE 400 MG TAB PO PRN (08:45)
[2017-11-30] MEDS ORDERED: POTASSIUM PHOSPHATE INJ 30 MMOL in SODIUM CHLOR 0.9% 250 ML INJ 250 ML IV PRN (08:45)
[2017-11-30] MEDS ORDERED: POTASSIUM PHOSPHATE MONOBASIC 500 MG TAB PO PRN (08:45)
[2017-11-30] MEDS: SODIUM CHLOR 0.9% 1000 ML INJ 1,000 ML IV SCH ×2 (08:45→16:55)
[2017-11-30] MEDS ORDERED: POTASSIUM CHLOR 40 MEQ PREMIX 100 ML IV PRN ×2 (08:45)
[2017-11-30] MEDS ORDERED: MAGNESIUM SULFATE INJ 2 GM in SODIUM CHLORIDE 0.9% INJ 96 ML IV PRN (08:45)
[2017-11-30] MEDS ORDERED: POTASSIUM CHLOR 20 MEQ PREMIX 100 ML IV PRN (08:45)
[2017-11-30] MEDS ORDERED: POTASSIUM PHOSPHATE MONOBASIC 500 MG TAB PO/TUBE PRN (08:45)
[2017-11-30] MEDS ORDERED: MAGNESIUM SULFATE INJ 4 GM in SODIUM CHLORIDE 0.9% INJ 92 ML IV PRN (08:45)
--- NOTE | 2017-11-30 08:52 | HHI.FPPN ---
Subjective Remarks Unfortunately, Mr Dong worsened with his alcohol withdrawal and required transfer to the [facility]. He is currently resting calmly on a very high dose (maxed out) of precedex. He is unable to take po now of course as he is too sedated. Objective Vitals Vital Signs Date Time Temp Pulse Resp B/P (MAP) Pulse Ox O2 Delivery O2 Flow Rate FiO2 11/30/17 07:49 97 Nasal Cannula 2.00 11/30/17 06:00 84 11/30/17 04:00 83 21 124/73 (90) 100 11/30/17 04:00 83 11/30/17 03:54 96 Nasal Cannula 2.00 11/30/17 02:00 87 11/30/17 00:00 98.7 100 124/74 (91) 97 11/30/17 00:00 100 11/29/17 23:36 98.7 96 20 117/73 (88) 97 11/29/17 20:49 98.2 124 20 123/73 (90) 95 11/29/17 17:29 98.3 20 168/82 11/29/17 16:39 98.4 92 20 136/67 (90) 92 11/29/17 10:30 98.3 97 20 125/76 96 11/29/17 10:29 98.3 97 20 125/70 96 11/29/17 10:00 97.5 95 18 119/70 98 I/O 11/29/17 11/29/17 11/29/17 11/30/17 11/30/17 11/30/17 07:00 15:00 23:00 07:00 15:00 23:00 Intake Total 651 ml 0 ml 207 ml Balance 651 ml 0 ml 207 ml Intake Oral 0 ml FFP 342 ml Platelets 282 ml 207 ml Blood Product IV Normal Saline Flush 27 ml # Voids 2 3 Result Diagram: 11/30/1760411/30/17 06 Objective Remarks GENERAL: This is a well-nourished, well-developed very jaundiced patient currently obtunded on a maximum precedex drip SKIN: No rashes or lesions. Cool and dry. Ecchymoses on left forearm and left upper back. plus petechiae and spider angioma HEAD: Atraumatic. Normocephalic. EYES: prominent scleral icterus. No injection or drainage. ENT: Nose without bleeding, purulent drainage or septal hematoma. Airway patent. Tongue with bilateral lacerations NECK: Trachea midline. No JVD or lymphadenopathy. Supple, nontender, no meningeal signs. CARDIOVASCULAR: Regular rate and rhythm without murmurs, gallops, or rubs. RESPIRATORY: Breath sounds equal bilaterally. No rales, or rhonchi. GASTROINTESTINAL: Abdomen soft, non-tender, distended. No hepato-splenomegaly, or palpable masses. No guarding. +Fluid wave MUSCULOSKELETAL: Extremities without clubbing, cyanosis, or edema. No joint tenderness, effusion, or edema noted. No calf tenderness. NEUROLOGICAL: Awake and alert. Motor and sensory grossly within normal limits. Normal speech. sedated so no tremors now A/P Assessment and Plan Mr. Connors is a 42 yo white male with a PMH of cirrhosis, HTN, and COPD presenting with alcohol withdrawal. He is being admitted to our inpatient service and required transfer to [facility] for more intensive care. Problem List: (1) Alcohol withdrawal ICD Codes: F10.239 - Alcohol dependence with withdrawal, unspecified Status: Acute Plan: Quit drinking alcohol a day and a half prior to admission. Likely had a seizure at home. * CIWA protocol, escalated care to precedex drip now * Seizure precautions * Rally pack, change to iv * his liver is so poor librium would be a concern as the half life is so long even under normal circumstances. he needed restraints as his actions were compromising his care and he was wandering the yang and perhaps trying to leave the hospital as well as stopping his FFP * will need intensive care until he starts to improve from his withdrawals. appreciate help of [employer] as required (2) Thrombocytopenia ICD Codes: D69.6 - Thrombocytopenia, unspecified Status: Acute Plan: now improved. Platelets on admission at 14 * Repeat CBC at 1500 showed decrease of platelets to 12, then 10 * Transfused platelets and repeated CBC * called Hematology as he may have DIC. appreciate their help * had platelets and FFP * he is currently at a level that should not require more transfusions unless ( hopefully not!) he started to bleed (3) Hyponatremia ICD Codes: E87.1 - Hypo-osmolality and hyponatremia Status: Acute Plan: Admission was 132. likely fluid overload from cirrhosis * Fluid restrict to 2 L/day * Continue to monitor (4) Alcoholic liver disease ICD Codes: K70.9 - Alcoholic liver disease, unspecified Status: Chronic Plan: Patient admits to drinking admitted by him a 12 pack of beer a day, his reports a case per day. ABC shows macrocytic anemia. AST greater than ALT on hepatic function panel. Ammonia level was elevated to 79. MELD score is 26-27 with a 19.6% estimated 3-month mortality * MELD score is very high especially considering his age. * Ordered hepatitis panel * Lactulose 30 mL's P0 3 times a day, unable to take po now. can resume soon hopefully * Continue at home medications of furosemide and spironolactone. had to change the lasix to iv for now. * Restrict sodium to 2 g a day * discussed with Mr Dong how terrible his liver is and that this is life threatening. offered help in quitting alcohol * spoke to his yesterday. (5) Macrocytic anemia ICD Codes: D53.9 - Nutritional anemia, unspecified Status: Acute Plan: Most likely from his chronic alcoholism * Will continue to monitor * developing pancytopenia but at least plts are improved (6) Hypertension ICD Codes: I10 - Essential (primary) hypertension Plan: * continue home medication of carvedilol when taking po * for now to avoid rebound tachycardia will give low dose iv metoprolol (7) COPD (chronic obstructive pulmonary disease) ICD Codes: J44.9 - Chronic obstructive pulmonary disease, unspecified Plan: * DuoNeb nebs as needed (8) FEN Status: Acute Plan: Fluids: too sedated to take po, on iv maintenance. Electrolytes: monitor and replete as needed. on electrolyte protocol in [facility] Nutrition: heart-healthy diet if able to eat DVT Prophylaxis: Early ambulation. Bilateral SCDs. with multiple clotting abnormalities cannot have any heparin, etc GI Prophylaxis: Pantoprazole have to change to iv as he cannot take po Fever/pain management: Tylenol 650 mg po not to exceed 2000mg/day Problem Qualifiers (1) Alcohol withdrawal: Qualified Codes: F10.239 - Alcohol dependence with withdrawal, unspecified (2) Hypertension: Qualified Codes: I10 - Essential (primary) hypertension (3) COPD (chronic obstructive pulmonary disease): Qualified Codes: J44.9 - Chronic obstructive pulmonary disease, unspecified Yoli Romero MD Nov 30, 2017 08:52
[2017-11-30] MEDS: THIAMINE HCL 100 MG TAB PO SCH (09:00)
[2017-11-30] MEDS: MULTIVITAMINS/MINERALS THERAPEUTIC TAB PO SCH (09:00)
[2017-11-30] MEDS: SPIRONOLACTONE 25 MG TAB PO SCH (09:00)
[2017-11-30] MEDS: LACTULOSE SYRUP 20 GM/30 ML CUP PO SCH ×3 (09:00→18:00)
[2017-11-30] MEDS: RIFAXIMIN 550 MG TAB PO SCH ×2 (09:00→20:55)
[2017-11-30] MEDS: POTASSIUM CHLORIDE 10 MEQ CONTROLLED RELEASE TAB PO SCH (09:00)
[2017-11-30] MEDS: FOLIC ACID 1 MG TAB PO SCH (09:00)
--- NOTE | 2017-11-30 09:15 | PD.ONC.PN ---
Subjective Subjective Remarks Afebrile overnight. Patient sedated on Precedex. no family members at bedside. Per nurse no bleeding events. Objective Data Date Time Temp Pulse Resp B/P (MAP) Pulse Ox O2 Delivery O2 Flow Rate FiO2 11/30/17 07:49 97 Nasal Cannula 2.00 11/30/17 06:00 84 11/30/17 04:00 83 21 124/73 (90) 100 11/30/17 04:00 83 11/30/17 03:54 96 Nasal Cannula 2.00 11/30/17 02:00 87 11/30/17 00:00 98.7 100 124/74 (91) 97 11/30/17 00:00 100 11/29/17 23:36 98.7 96 20 117/73 (88) 97 11/29/17 20:49 98.2 124 20 123/73 (90) 95 11/29/17 17:29 98.3 20 168/82 11/29/17 16:39 98.4 92 20 136/67 (90) 92 11/29/17 10:30 98.3 97 20 125/76 96 11/29/17 10:29 98.3 97 20 125/70 96 11/29/17 10:00 97.5 95 18 119/70 98 11/30/17 11/30/17 11/30/17 07:00 15:00 23:00 Intake Total 207 ml Balance 207 ml Result Diagram: 11/30/17 0611/30/17 06 Laboratory Results Laboratory Tests Test 11/29/17 10:00 11/29/17 16:52 11/29/17 21:09 11/30/17 01:00 Blood Smear Pathologist Review Prothrombin Time 17.8 SEC Prothromb Time International Ratio 1.8 RATIO Activated Partial Thromboplast Time 34.6 SEC Fibrinogen 244 mg/dL D-Dimer Quantitative (PE/DVT) 3.06 MG/L FEU White Blood Count 5.4 TH/MM3 Red Blood Count 3.27 MIL/MM3 Hemoglobin 12.0 GM/DL Hematocrit 33.8 % Mean Corpuscular Volume 103.4 FL Mean Corpuscular Hemoglobin 36.6 PG Mean Corpuscular Hemoglobin Concent 35.4 % Red Cell Distribution Width 21.2 % Platelet Count 39 TH/MM3 Mean Platelet Volume 9.0 FL Test 11/30/17 06:05 White Blood Count 3.5 TH/MM3 Red Blood Count 3.01 MIL/MM3 Hemoglobin 11.0 GM/DL Hematocrit 30.5 % Mean Corpuscular Volume 101.3 FL Mean Corpuscular Hemoglobin 36.4 PG Mean Corpuscular Hemoglobin Concent 36.0 % Red Cell Distribution Width 21.0 % Platelet Count 26 TH/MM3 Mean Platelet Volume 9.4 FL CBC Comment AUTO DIFF Differential Total Cells Counted 100 Neutrophils % (Manual) 81 % Band Neutrophils % 3 % Lymphocytes % 8 % Monocytes % 7 % Basophils % 1 % Neutrophils # (Manual) 2.9 TH/MM3 Differential Comment FINAL DIFF MANUAL Platelet Estimate LOW Platelet Morphology Comment ENLARGED Target Cells 2+ Prothrombin Time 18.2 SEC Prothromb Time International Ratio 1.8 RATIO Activated Partial Thromboplast Time 35.6 SEC Blood Urea Nitrogen 15 MG/DL Creatinine 0.66 MG/DL Random Glucose 131 MG/DL Total Protein 6.5 GM/DL Albumin 2.5 GM/DL Calcium Level 8.3 MG/DL Alkaline Phosphatase 261 U/L Aspartate Amino Transf (AST/SGOT) 131 U/L Alanine Aminotransferase (ALT/SGPT) 29 U/L Total Bilirubin 25.5 MG/DL Sodium Level 136 MEQ/L Potassium Level 3.2 MEQ/L Chloride Level 102 MEQ/L Carbon Dioxide Level 25.8 MEQ/L Anion Gap 8 MEQ/L Estimat Glomerular Filtration Rate 133 ML/MIN Iron Level 73 MCG/DL Total Iron Binding Capacity 230 MCG/DL Percent Iron Saturation 31.8 % Ferritin 325 NG/ML Ammonia 55 MCMOL/L Tumor Marker Alpha Fetoprotein 2.5 NG/ML Imaging Studies Last Impressions Abdomen/Pelvis CT 11/29/17 0000 Signed Impressions: Service Date/Time: Thursday, November 30, 2017 06:32 - CONCLUSION: 1. Evidence of cirrhosis and portal venous hypertension with marked splenomegaly and recannulized periumbilical vein. 2. Cholelithiasis and mild nonspecific diffuse gallbladder wall thickening. Aly Collins MD Abdomen Ultrasound 11/29/17 0000 Signed Impressions: Service Date/Time: Wednesday, November 29, 2017 16:26 - CONCLUSION: 1. Hepatosplenomegaly 2. Chronic appearing parenchymal liver disease with suspected steatosis. 3. Cholelithiasis 4. Mild prominence of the common bile measured 8 mm. Bernabe Lutz MD Head CT 11/28/17 0000 Signed Impressions: Service Date/Time: Tuesday, November 28, 2017 08:23 - CONCLUSION: No acute disease. Francesco Hernandez MD Chest X-Ray 11/28/17 0000 Signed Impressions: Service Date/Time: Tuesday, November 28, 2017 08:29 - CONCLUSION: Cardiomegaly. No acute pulmonary disease. Artur Magaña MD Administered Medications Medications (Trade) Dose Ordered Sig/Jeremy Route PRN Reason Start Time Stop Time Status Last Admin Dose Admin Sodium Chloride (NS Flush) 2 ml BID IV FLUSH 11/28/17 21:00 11/29/17 21:12 Folic Acid (Folate) 1 mg DAILY PO 11/28/17 11:00 12/03/17 10:59 11/29/17 08:54 Thiamine HCl (Vitamin B1) 100 mg DAILY PO 11/28/17 11:00 11/29/17 08:54 Multivitamins/ Minerals Therapeutic (Theragran M Tab) 1 tab DAILY PO 11/28/17 11:00 12/03/17 10:59 11/29/17 08:54 Lorazepam (Ativan Inj) 2 mg Q1H PRN IV PUSH CIWA 15-20 11/28/17 11:00 11/29/17 18:45 Lorazepam (Ativan Inj) 2 mg Q15M PRN IV PUSH CIWA > 20 11/28/17 11:00 11/30/17 00:22 Lactulose (Lactulose Liq) 30 ml TID PO 11/28/17 13:00 11/29/17 14:27 Albuterol/ Ipratropium (Duoneb Neb) 1 ampule Q6HR NEB INH 11/28/17 16:00 11/30/17 07:48 Carvedilol (Coreg) 6.25 mg BID PO 11/28/17 21:00 Future Hold 11/29/17 21:12 Pantoprazole Sodium (Protonix) 40 mg DAILY PO 11/29/17 09:00 11/29/17 08:54 Potassium Chloride (KCl) 10 meq DAILY PO 11/29/17 09:00 11/29/17 08:54 Spironolactone (Aldactone) 25 mg DAILY PO 11/29/17 09:00 11/29/17 08:54 Chlordiazepoxide (Librium) 25 mg BID PO 11/29/17 14:45 Future Hold 11/29/17 21:12 Methylprednisolone Sodium Succinate (SoluMEDROL INJ) 60 mg DAILY IV PUSH 11/29/17 16:00 11/29/17 17:35 Pentoxifylline (TRENtal SR) 400 mg Q8HR PO 11/29/17 16:00 11/29/17 22:00 Rifaximin (Xifaxan) 550 mg BID PO 11/29/17 21:00 11/29/17 21:12 Dexmedetomidine HCl 200 mcg/ Sodium Chloride 52 ml @ 5.35 mls/hr TITRATE PRN IV SEDATION 11/30/17 00:15 11/30/17 05:52 Objective Remarks GENERAL: chronically ill appearing severely jaundiced male lying in bed, sedated. SKIN: Warm and dry. HEAD: Normocephalic. EYES: No injection or drainage. NECK: Supple, trachea midline. CARDIOVASCULAR: Regular rate and rhythm RESPIRATORY: anterior steward clear. on 2L O2 via NC GASTROINTESTINAL: Abdomen distended with ascites. EXTREMITIES: No cyanosis. mild edema lower extremities. MUSCULOSKELETAL: Adequate muscle tone. NEUROLOGICAL: sedated. Assessment/Plan Problem List: (1) Thrombocytopenia ICD Codes: D69.6 - Thrombocytopenia, unspecified Status: Acute Plan: --Thrombocytopenia secondary to suspected alcohol-related bone marrow toxicity and high splenic sequestration. --recommend supportive platelet transfusions. (2) Coagulopathy ICD Codes: D68.9 - Coagulation defect, unspecified Plan: --Transfuse fresh frozen plasma as needed --agree with vitamin K supplementation. recommend oral replacement. (3) Alcoholic liver disease ICD Codes: K70.9 - Alcoholic liver disease, unspecified Status: Chronic Plan: --GI following, management per primary team. Assessment 42y/o male critically ill in [facility] [place]. Patient was admitted after suffering a seizure from alcohol withdrawal at home. Hematology consulted for thrombocytopenia and coagulopathy. history of alcohol abuse and alcohol abuse-related liver cirrhosis. Asthma. Hypertension Plan 1. monitor CBC, coags 2. recommend judicious transfusions only for bleeding or for platelet count less than 15K or fibrinogen less than 100. Attending Statement The exam, history, and the medical decision-making described in the above note were completed with the assistance of the mid-level provider. I reviewed and agree with the findings presented. I attest that I had a [id number] encounter with the patient on the same day, and personally performed and documented my assessment and findings in the medical record. Patient seen and examined, overnight events were reviewed; patient's delirium tremens worsened and he was transferred to the critical care unit and has been initiated on intravenous Precedex. Patient is presently sedated, he is laying in bed asleep. Blood work reviewed; thrombocytopenia improved with multiple platelet unit transfusions, platelet count remains however at 26,000. No evidence of overt bleeding. Coags however remain deranged despite by mouth vitamin K and multiple units of FFP transfusion. Into the ongoing care. Transfuse FFP and platelets as needed to maintain platelet count over 15,000 (if he is not bleeding). If there is active bleeding would recommend hyper-transfusing to maintain a platelet count above 40,000. Meghana Mckeon Nov 30, 2017 09:15 Marcial Castrejon MD Nov 30, 2017 15:55
[2017-11-30] MEDS: FUROSEMIDE 20 MG/2 ML VIAL IV PUSH SCH ×2 (09:28→17:00)
[2017-11-30] MEDS: POTASSIUM CHLOR 20 MEQ PREMIX 100 ML IV PRN ×4 (09:37→21:43)
[2017-11-30] MEDS: methylPREDNISolone SOD SUCC 125 MG/2 ML VIAL IV PUSH SCH (10:03)
[2017-11-30] MEDS: METOPROLOL TARTRATE 5 MG/5 ML VIAL IV PUSH SCH ×3 (10:04→20:55)
[2017-11-30] MEDS: SODIUM CHLORIDE 0.9% FLUSH 10 ML FLUSH IV FLUSH SCH ×2 (10:05→20:54)
[2017-11-30] MEDS: DEXMEDETOMIDINE INJ 1,000 MCG in SODIUM CHLOR 0.9% 250 ML INJ 240 ML IV PRN ×2 (10:39→23:10)
[2017-11-30] MEDS ORDERED: MULTIVITAMIN INJ 10 ML, THIAMINE INJ 100 MG, FOLIC ACID INJ 1 MG in SODIUM CHLORID 0.9%... IV SCH (11:00)
[2017-11-30 11:31] LABS: MAGNESIUM 1.7 MG/DL (1.5-2.5); PHOSPHORUS 3.5 MG/DL (2.5-4.9)
[2017-11-30] MEDS: PANTOPRAZOLE SODIUM 40 MG VIAL IV PUSH SCH (11:38)
--- NOTE | 2017-11-30 11:40 | HHI.GIFU ---
Subjective Remarks Pt transferred to [facility] [place] for severe w/drawal sx. sedated on precedex. No PO intake. Objective Vitals I&O Vital Signs Date Time Temp Pulse Resp B/P (MAP) Pulse Ox O2 Delivery O2 Flow Rate FiO2 11/30/17 10:00 80 11/30/17 08:00 80 11/30/17 08:00 97.1 80 21 120/74 (89) 96 11/30/17 07:49 97 Nasal Cannula 2.00 11/30/17 06:00 84 11/30/17 04:00 83 21 124/73 (90) 100 11/30/17 04:00 83 11/30/17 03:54 96 Nasal Cannula 2.00 11/30/17 02:00 87 11/30/17 00:00 98.7 100 124/74 (91) 97 11/30/17 00:00 100 11/29/17 23:36 98.7 96 20 117/73 (88) 97 11/29/17 20:49 98.2 124 20 123/73 (90) 95 11/29/17 17:29 98.3 20 168/82 11/29/17 16:39 98.4 92 20 136/67 (90) 92 I/O 11/29/17 11/29/17 11/29/17 11/30/17 11/30/17 11/30/17 07:00 15:00 23:00 07:00 15:00 23:00 Intake Total 651 ml 0 ml 207 ml 50 ml Balance 651 ml 0 ml 207 ml 50 ml Intake Oral 0 ml IV Total 50 ml FFP 342 ml Platelets 282 ml 207 ml Blood Product IV Normal Saline Flush 27 ml # Voids 2 3 Laboratory Laboratory Tests Test 11/29/17 16:52 11/29/17 21:09 11/30/17 01:00 11/30/17 06:05 Prothrombin Time 17.8 18.2 Prothromb Time International Ratio 1.8 1.8 Activated Partial Thromboplast Time 34.6 35.6 Fibrinogen 244 D-Dimer Quantitative (PE/DVT) 3.06 White Blood Count 5.4 3.5 Red Blood Count 3.27 3.01 Hemoglobin 12.0 11.0 Hematocrit 33.8 30.5 Mean Corpuscular Volume 103.4 101.3 Mean Corpuscular Hemoglobin 36.6 36.4 Mean Corpuscular Hemoglobin Concent 35.4 36.0 Red Cell Distribution Width 21.2 21.0 Platelet Count 39 26 Mean Platelet Volume 9.0 9.4 Nasal Screen MRSA (PCR) MRSA NOT DETECTED CBC Comment AUTO DIFF Differential Total Cells Counted 100 Neutrophils % (Manual) 81 Band Neutrophils % 3 Lymphocytes % 8 Monocytes % 7 Basophils % 1 Neutrophils # (Manual) 2.9 Differential Comment FINAL DIFF MANUAL Platelet Estimate LOW Platelet Morphology Comment ENLARGED Target Cells 2+ Blood Urea Nitrogen 15 Creatinine 0.66 Random Glucose 131 Total Protein 6.5 Albumin 2.5 Calcium Level 8.3 Phosphorus Level 3.5 Magnesium Level 1.7 Alkaline Phosphatase 261 Aspartate Amino Transf (AST/SGOT) 131 Alanine Aminotransferase (ALT/SGPT) 29 Total Bilirubin 25.5 Sodium Level 136 Potassium Level 3.2 Chloride Level 102 Carbon Dioxide Level 25.8 Anion Gap 8 Estimat Glomerular Filtration Rate 133 Iron Level 73 Total Iron Binding Capacity 230 Percent Iron Saturation 31.8 Ferritin 325 Ammonia 55 Tumor Marker Alpha Fetoprotein 2.5 Imaging Last Impressions Abdomen/Pelvis CT 11/29/17 0000 Signed Impressions: Service Date/Time: Thursday, November 30, 2017 06:32 - CONCLUSION: 1. Evidence of cirrhosis and portal venous hypertension with marked splenomegaly and recannulized periumbilical vein. 2. Cholelithiasis and mild nonspecific diffuse gallbladder wall thickening. Aly Collins MD Abdomen Ultrasound 11/29/17 0000 Signed Impressions: Service Date/Time: Wednesday, November 29, 2017 16:26 - CONCLUSION: 1. Hepatosplenomegaly 2. Chronic appearing parenchymal liver disease with suspected steatosis. 3. Cholelithiasis 4. Mild prominence of the common bile measured 8 mm. Bernabe Lutz MD Head CT 11/28/17 0000 Signed Impressions: Service Date/Time: Tuesday, November 28, 2017 08:23 - CONCLUSION: No acute disease. Francesco Hernandez MD Chest X-Ray 11/28/17 0000 Signed Impressions: Service Date/Time: Tuesday, November 28, 2017 08:29 - CONCLUSION: Cardiomegaly. No acute pulmonary disease. Artur Magaña MD Physical Exam HEENT: normocephalic; atraumatic;icteric CHEST: Cta CARDIAC: Rrr ABDOMEN: Soft, MILDLY distended, no hepatosplenomegaly; bowel sounds are present in all four quadrants. EXTREMITIES: No clubbing, cyanosis, or edema. soft restraints SKIN: Normal; no rash; significant jaundice. NURSE PRACTITIONER: sedated on precedex, did not rouse to exam Assessment and Plan Plan ASSESSMENT - jaundice, elev LFTs - likely ETOH hepatitis. acute on chronic. hx heavy drinking. DF 49. MELD 25. NH decreased to 55. CT abd shows cirrhosis, portal HTN, cholelithiasis. US shows mild prominence CBD 8mm liver w/u & hep panel pending. having withdrawal, no PO intake. - anemia - macrocytic. no report bleeding. - thrombocytopenia - hem/onc following, getting therapeutic PLT transfusions - ETOH withdrawal, hepatic encephalopathy per primary PLAN - await liver w/u - cont IV solumedrol - pentoxifylline when pt can have PO intake - xifaxan when PO intake - lactulose - can do enemas if no PO intake - monitor labs - further recs as case unfolds Pt d/w Dr Medeiros and myself and this note is written on his behalf Geno Cardenas Nov 30, 2017 11:40
[2017-11-30] MEDS: NICOTINE 7 MG/24 HR PATCH T-DERMAL SCH (13:46)
[2017-11-30 19:04] LABS: HEMATOCRIT 33.8 % (39.0-51.0); MEAN CELL VOLUME 102.9 FL (80.0-100.0); MEAN CORPUSCULAR HEMOGLOBIN 36.5 PG (27.0-34.0); MEAN CORPUSCULAR HGB CONC 35.5 % (32.0-36.0); MEAN PLATELET VOLUME 9.4 FL (7.0-11.0); PLATELET COUNT 41 TH/MM3 (150-450); RED BLOOD COUNT 3.28 MIL/MM3 (4.50-5.90); RED CELL DISTRIBUTION WIDTH 21.6 % (11.6-17.2); WHITE BLOOD COUNT 2.8 TH/MM3 (4.0-11.0)
--- NOTE | 2017-11-30 20:32 | HHI.CCPN ---
Subjective Remarks/Hospital Course Hospital Course: 42-year-old white male with alcoholic liver cirrhosis, HTN, and COPD presents after a possible seizure at home. Per chart review patient's reported that he got out of bed confused. He then clenched up his arms and started shaking. His helped him to the floor where he continued to be clenched and shaking and was not responding to her when she was talking to him. She then called 911. He seemed to come back to when the EMS arrived at the house. He states that he does not remember anything that happened from this morning. He was confused and tired. No achy muscles. Of note he quit drinking alcohol a day and a half prior to admission. He would drink a 12 pack of beer a day at minimum up to a case a day. He had previously quit alcohol but started up again in September when his mother . He then decided to quit cold turkey. Lately he has been feeling shaky, having blurry vision. He was admitted to medicine for with diagnosis of alcohol dependence when he developed severe alcohol withdrawal symptoms requiring to be transferred to ICU and started on Precedex drip. Subjective: 11/30: remains encephalopathic and intermittently severely agitated. RASS -3 or + 1. on precedex infusion. ROS unobtainable due to mental status. Objective Vital Signs Date Time Temp Pulse Resp B/P (MAP) Pulse Ox O2 Delivery O2 Flow Rate FiO2 11/30/17 20:03 98 Non-Rebreather 15.00 11/30/17 18:00 74 11/30/17 16:00 97.2 22 144/90 (108) Intake and Output 11/30/17 11/30/17 12/01/17 08:00 16:00 00:00 Intake Total 150 ml 2665 ml Output Total 2450 ml Balance 150 ml 215 ml Result Diagram: 11/30/17 1819 11/30/17 0605 Objective Remarks GEN: Visibly jaundiced, bilateral hand tremors, in four point restraints, encephalopathic. SKIN: Jaundiced. Ecchymoses on left forearm and left upper back. HEAD: Atraumatic. Normocephalic. EYES: EOMI. Scleral icterus. CARDIOVASCULAR: Tachycardic rate, regular rhythm. RESPIRATORY: equal chest rise. facemask o2. GASTROINTESTINAL: Abdomen soft, nontender, distended. Positive ascites MUSCULOSKELETAL: Extremities without edema. NEURO: RASS -3. encephalopathic. when he arouses, he fights with restraints RASS +1/+2. +tremor. +gag. protecting airway. A/P Assessment and Plan Assessment: 42yM with Alcoholic Cirrhosis and Acute Alcohol withdraw syndrome, Severe Agitated Delirium requiring continuous iv sedation for patient safety and to prevent seizures. Remains critically ill without improvement. Multiple attempts throughout the day to wean iv sedation were unsuccessful and patient continues to require high dose sedatives in an ICU setting to prevent acute worsening of his life-threatening agitated delirium and withdraw. remains critically ill. Alcohol withdrawal [id number] Agitated Delirium - Precedex drip - CIWA protocol - Thiamine folate and multivitamins - Neuro checks - RASS goal -1. - will add haldol for breakthrough agitation. Liver cirrhosis - Xifaxan - Lactulose - likely secondary to etoh. - appreciate GI recs. Ascites - Lasix - Spironolactone - Potassium replacement History of asthma - DuoNeb scheduled and when necessary - wean o2 as tolerated for goal spo2 > 90% Thrombocytopenia - Due to liver cirrhosis - Supportive care - Transfuse for signs of bleeding or platelets less than 10 Hypertension - Coreg - Lasix DVT GI prophylaxis - Teds SCDs - PPI - No pharmacological DVT prophylaxis due to severe thrombocytopenia and coagulopathy due to liver cirrhosis Critical Care: The total critical care time was 31 minutes. Time to perform other separately billable procedures was not included in the critical care time. Oscar Lopez MD Nov 30, 2017 20:32
[2017-11-30] MEDS: REMOVE OLD PATCH T-DERMAL SCH (20:55)
[2017-12-01] VITALS (12 sets, daily range): BP systolic 96–130; BP diastolic 59–80; PULSE 80–87; RESP 16–36; TEMP 98.2–98.7; O2SAT 93–99
[2017-12-01] MEDS: LORazepam 2 MG/ML VIAL IV PUSH PRN ×5 (01:09→23:04)
[2017-12-01] MEDS: RESP: ALBUTEROL 2.5 MG/IPRATROPIUM 0.5 MG NEB (SCH) INH ×4 (04:03→21:14)
[2017-12-01] MEDS: METOPROLOL TARTRATE 5 MG/5 ML VIAL IV PUSH SCH ×5 (04:08→21:00)
[2017-12-01 05:57] LABS: HEMATOCRIT 34.9 % (39.0-51.0); HEMOGLOBIN 12.2 GM/DL (13.0-17.0); MEAN CELL VOLUME 102.4 FL (80.0-100.0); MEAN CORPUSCULAR HEMOGLOBIN 35.7 PG (27.0-34.0); MEAN CORPUSCULAR HGB CONC 34.8 % (32.0-36.0); MEAN PLATELET VOLUME 9.4 FL (7.0-11.0); PLATELET COUNT 33 TH/MM3 (150-450); RED BLOOD COUNT 3.41 MIL/MM3 (4.50-5.90); RED CELL DISTRIBUTION WIDTH 21.8 % (11.6-17.2); WHITE BLOOD COUNT 4.3 TH/MM3 (4.0-11.0)
[2017-12-01] MEDS: DEXMEDETOMIDINE INJ 1,000 MCG in SODIUM CHLOR 0.9% 250 ML INJ 240 ML IV PRN (06:12)
[2017-12-01 06:26] LABS: ALBUMIN 2.4 GM/DL (3.4-5.0); CREATININE 0.81 MG/DL (0.60-1.30); DIRECT BILIRUBIN ADULT 20.2 MG/DL (0.0-0.2); INDIRECT BILIRUBIN 5.6 MG/DL (0.0-0.8); TOTAL BILIRUBIN ADULT 25.8 MG/DL (0.2-1.0); TOTAL PROTEIN 6.5 GM/DL (6.4-8.2)
[2017-12-01] MEDS ORDERED: GLUCAGON 1 MG/ML VIAL OTHER PRN (09:45)
[2017-12-01] MEDS ORDERED: DEXTROSE 50% IN WATER 50 ML VIAL(D50) IV PUSH PRN (09:45)
--- NOTE | 2017-12-01 09:46 | HHI.CCPN ---
Subjective Remarks/Hospital Course Hospital Course: 42-year-old white male with alcoholic liver cirrhosis, HTN, and COPD presents after a possible seizure at home. Per chart review patient's reported that he got out of bed confused. He then clenched up his arms and started shaking. His helped him to the floor where he continued to be clenched and shaking and was not responding to her when she was talking to him. She then called 911. He seemed to come back to when the EMS arrived at the house. He states that he does not remember anything that happened from this morning. He was confused and tired. No achy muscles. Of note he quit drinking alcohol a day and a half prior to admission. He would drink a 12 pack of beer a day at minimum up to a case a day. He had previously quit alcohol but started up again in September when his mother . He then decided to quit cold turkey. Lately he has been feeling shaky, having blurry vision. He was admitted to medicine for with diagnosis of alcohol dependence when he developed severe alcohol withdrawal symptoms requiring to be transferred to ICU and started on Precedex drip. Subjective: 11/30: remains encephalopathic and intermittently severely agitated. RASS -3 or + 1. on Precedex infusion. ROS unobtainable due to mental status. 12/01 Patient remains encephalopathic on Precedex dip 1mic/kg/hr. Afebrile. Objective Vital Signs Date Time Temp Pulse Resp B/P (MAP) Pulse Ox O2 Delivery O2 Flow Rate FiO2 12/01/17 08:40 97 Partial Rebreather 12.00 12/01/17 06:00 82 12/01/17 04:00 27 130/76 (94) 12/01/17 00:00 98.2 Intake and Output 12/01/17 12/01/17 12/02/17 08:00 16:00 00:00 Intake Total 2038 ml Output Total 1575 ml Balance 463 ml Result Diagram: 12/01/17 0453 12/01/17 0453 Other Results Laboratory Tests Test 11/30/17 18:19 12/01/17 04:53 White Blood Count 2.8 TH/MM3 4.3 TH/MM3 Red Blood Count 3.28 MIL/MM3 3.41 MIL/MM3 Hemoglobin 12.0 GM/DL 12.2 GM/DL Hematocrit 33.8 % 34.9 % Mean Corpuscular Volume 102.9 FL 102.4 FL Mean Corpuscular Hemoglobin 36.5 PG 35.7 PG Mean Corpuscular Hemoglobin Concent 35.5 % 34.8 % Red Cell Distribution Width 21.6 % 21.8 % Platelet Count 41 TH/MM3 33 TH/MM3 Mean Platelet Volume 9.4 FL 9.4 FL Blood Urea Nitrogen 20 MG/DL Creatinine 0.81 MG/DL Random Glucose 122 MG/DL Total Protein 6.5 GM/DL Albumin 2.4 GM/DL Calcium Level 8.0 MG/DL Alkaline Phosphatase 269 U/L Aspartate Amino Transf (AST/SGOT) 110 U/L Alanine Aminotransferase (ALT/SGPT) 32 U/L Total Bilirubin 25.8 MG/DL Direct Bilirubin 20.2 MG/DL Sodium Level 140 MEQ/L Potassium Level 4.0 MEQ/L Chloride Level 107 MEQ/L Carbon Dioxide Level 23.0 MEQ/L Anion Gap 10 MEQ/L Estimat Glomerular Filtration Rate 105 ML/MIN Indirect Bilirubin 5.6 MG/DL Imaging Last Impressions Abdomen/Pelvis CT 11/29/17 0000 Signed Impressions: Service Date/Time: Thursday, November 30, 2017 06:32 - CONCLUSION: 1. Evidence of cirrhosis and portal venous hypertension with marked splenomegaly and recannulized periumbilical vein. 2. Cholelithiasis and mild nonspecific diffuse gallbladder wall thickening. Aly Collins MD Abdomen Ultrasound 11/29/17 0000 Signed Impressions: Service Date/Time: Wednesday, November 29, 2017 16:26 - CONCLUSION: 1. Hepatosplenomegaly 2. Chronic appearing parenchymal liver disease with suspected steatosis. 3. Cholelithiasis 4. Mild prominence of the common bile measured 8 mm. Bernabe Lutz MD Head CT 11/28/17 0000 Signed Impressions: Service Date/Time: Tuesday, November 28, 2017 08:23 - CONCLUSION: No acute disease. Francesco Hernandez MD Chest X-Ray 11/28/17 Signed Impressions: Service Date/Time: Tuesday, November 28, 2017 08:29 - CONCLUSION: Cardiomegaly. No acute pulmonary disease. Artur Magaña MD Objective Remarks GENERAL: Patient is lying in bed in NAD SKIN: Warm and dry. HEAD: Normocephalic. EYES: No scleral icterus. No injection or drainage. NECK: Supple, trachea midline. No JVD or lymphadenopathy. CARDIOVASCULAR: Regular rate and rhythm without murmurs, gallops, or rubs. RESPIRATORY: Breath sounds equal bilaterally. No accessory muscle use. GASTROINTESTINAL: Abdomen soft, non-tender, nondistended. MUSCULOSKELETAL: No cyanosis, or edema. Neuro: Encephalopathic A/P Assessment and Plan Assessment: 42yM with Alcoholic Cirrhosis and Acute Alcohol withdraw syndrome, Severe Agitated Delirium requiring continuous iv sedation for patient safety and to prevent seizures. Remains critically ill without improvement. Multiple attempts throughout the day to wean iv sedation were unsuccessful and patient continues to require high dose sedatives in an ICU setting to prevent acute worsening of his life-threatening agitated delirium and withdraw. remains critically ill. 1)Resp Insuff 2)Encephalopathy 3)Alcohol withdrawal 4)Cirrhosis of liver 5)Hyperbilirubinemia 6)Anemia, thrombocytopenia 7)Coagulopathy 2nd liver disease 8)Hx Asthma 9)Hx HTN Plan Neuro: Monitor neuro status Wean off Precedex drip CIWA protocol Thiamine folate and multivitamins Haldol for breakthrough agitation. Check Ammonia level, continue Lactulose, Rifaximin, Solumedrol 60mg daily Pulm: Continue with oxygen keep sat >92% CV: Monitor HR and BP keep MAP>65mmHg : Monitor renal function, I/O's, electrolytes replacement per protocol. On Lasix 20mg BID, Aldactone 25mg daily ID: Monitor for signs of infections ( Fever, WBC) Check UA with cx if indicated. CXR: No acute disease Heme: Monitor CBC, coags GI:Keep NPO as patient is lethargic, continue Protonix 40mg daily Endo: SSI to maintain Euglycemia GI prophylaxis- On Protonix 40mg daily DVT prophylaxis- SCD, not a a candidate for chemical AC prophylaxis due to thrombocytopenia with PLT count < 50 Level 3 . Carla Rasmussen MD Dec 01, 2017 09:46
[2017-12-01] MEDS: FUROSEMIDE 20 MG/2 ML VIAL IV PUSH SCH ×2 (10:50→17:20)
[2017-12-01] MEDS: PANTOPRAZOLE SODIUM 40 MG VIAL IV PUSH SCH (10:50)
[2017-12-01] MEDS: SODIUM CHLORIDE 0.9% FLUSH 10 ML FLUSH IV FLUSH SCH ×2 (10:50→20:15)
[2017-12-01] MEDS: MULTIVITAMINS/MINERALS THERAPEUTIC TAB PO SCH (10:51)
[2017-12-01] MEDS: PENTOXIFYLLINE 400 MG CONTROLLED RELEASE TAB PO SCH ×3 (10:51→22:00)
[2017-12-01] MEDS: RIFAXIMIN 550 MG TAB PO SCH ×2 (10:51→19:57)
[2017-12-01] MEDS: NICOTINE 7 MG/24 HR PATCH T-DERMAL SCH (10:51)
[2017-12-01] MEDS: THIAMINE HCL 100 MG TAB PO SCH (10:51)
[2017-12-01] MEDS: FOLIC ACID 1 MG TAB PO SCH (10:52)
[2017-12-01] MEDS: SPIRONOLACTONE 25 MG TAB PO SCH (10:52)
[2017-12-01] MEDS: LACTULOSE SYRUP 20 GM/30 ML CUP PO SCH ×3 (10:52→19:57)
[2017-12-01] MEDS: POTASSIUM CHLORIDE 10 MEQ CONTROLLED RELEASE TAB PO SCH (10:52)
[2017-12-01] MEDS: methylPREDNISolone SOD SUCC 125 MG/2 ML VIAL IV PUSH SCH (10:53)
[2017-12-01] MEDS: INSULIN NovoLIN REGULAR SUPPLEMENTAL SCALE SQ SCH ×4 (11:00→23:31)
--- NOTE | 2017-12-01 11:34 | HHI.GIFU ---
Subjective Remarks Pt resting in bed on partial rebreather. NAD. (Geno Cardenas) Objective Vitals I&O Vital Signs Date Time Temp Pulse Resp B/P (MAP) Pulse Ox O2 Delivery O2 Flow Rate FiO2 12/01/17 08:40 97 Partial Rebreather 12.00 12/01/17 06:00 82 12/01/17 04:00 81 12/01/17 04:00 81 27 130/76 (94) 97 12/01/17 02:00 80 12/01/17 00:00 84 12/01/17 00:00 98.2 84 25 127/80 (96) 95 11/30/17 22:00 77 11/30/17 20:03 98 Non-Rebreather 15.00 11/30/17 20:00 97.7 80 28 122/81 (95) 97 11/30/17 20:00 80 11/30/17 18:00 74 11/30/17 16:00 79 11/30/17 16:00 97.2 79 22 144/90 (108) 88 11/30/17 14:00 75 11/30/17 12:00 77 11/30/17 12:00 97.8 77 21 140/86 (104) 93 I/O 11/30/17 11/30/17 11/30/17 12/01/17 12/01/17 12/01/17 06:59 14:59 22:59 06:59 14:59 22:59 Intake Total 207 ml 150 ml 2765 ml 2038 ml Output Total 2450 ml 1575 ml Balance 207 ml 150 ml 315 ml 463 ml Intake Oral 0 ml IV Total 150 ml 2765 ml 2038 ml Platelets 207 ml Output Urine Total 2450 ml 1575 ml # Bowel Movements 0 Laboratory Laboratory Tests Test 11/30/17 18:19 12/01/17 04:53 White Blood Count 2.8 4.3 Red Blood Count 3.28 3.41 Hemoglobin 12.0 12.2 Hematocrit 33.8 34.9 Mean Corpuscular Volume 102.9 102.4 Mean Corpuscular Hemoglobin 36.5 35.7 Mean Corpuscular Hemoglobin Concent 35.5 34.8 Red Cell Distribution Width 21.6 21.8 Platelet Count 41 33 Mean Platelet Volume 9.4 9.4 Blood Urea Nitrogen 20 Creatinine 0.81 Random Glucose 122 Total Protein 6.5 Albumin 2.4 Calcium Level 8.0 Alkaline Phosphatase 269 Aspartate Amino Transf (AST/SGOT) 110 Alanine Aminotransferase (ALT/SGPT) 32 Total Bilirubin 25.8 Direct Bilirubin 20.2 Sodium Level 140 Potassium Level 4.0 Chloride Level 107 Carbon Dioxide Level 23.0 Anion Gap 10 Estimat Glomerular Filtration Rate 105 Indirect Bilirubin 5.6 Imaging Last Impressions Abdomen/Pelvis CT 11/29/17 0000 Signed Impressions: Service Date/Time: Thursday, November 30, 2017 06:32 - CONCLUSION: 1. Evidence of cirrhosis and portal venous hypertension with marked splenomegaly and recannulized periumbilical vein. 2. Cholelithiasis and mild nonspecific diffuse gallbladder wall thickening. Aly Collins MD Abdomen Ultrasound 11/29/17 0000 Signed Impressions: Service Date/Time: Wednesday, November 29, 2017 16:26 - CONCLUSION: 1. Hepatosplenomegaly 2. Chronic appearing parenchymal liver disease with suspected steatosis. 3. Cholelithiasis 4. Mild prominence of the common bile measured 8 mm. Bernabe Lutz MD Head CT 11/28/17 0000 Signed Impressions: Service Date/Time: Tuesday, November 28, 2017 08:23 - CONCLUSION: No acute disease. Francesco Hernandez MD Chest X-Ray 11/28/17 0000 Signed Impressions: Service Date/Time: Tuesday, November 28, 2017 08:29 - CONCLUSION: Cardiomegaly. No acute pulmonary disease. Artur Magaña MD Physical Exam HEENT: normocephalic; atraumatic;icteric partial rebreather CHEST: Cta CARDIAC: Rrr ABDOMEN: Soft, mildly distended, bowel sounds are present in all four quadrants. EXTREMITIES: No clubbing, cyanosis, or edema. soft restraints SKIN: Normal; no rash; significant jaundice. PRIZE JACKER: lethargic, did not rouse to exam (Geno Cardenas) Assessment and Plan Plan ASSESSMENT - jaundice, elev LFTs - likely ETOH hepatitis. acute on chronic. hx heavy drinking. DF 49. MELD 25. NH decreased to 55. CT abd shows cirrhosis, portal HTN, cholelithiasis. US shows mild prominence CBD 8mm liver w/u & hep panel still pending.in IMC, ETOH withdrawal. appears he was started on diet again, so continue lactulose if he can't take PO he can have lactulose enemas or NGT for lactulose admin not much change LFTs today - anemia - macrocytic. no report bleeding. - thrombocytopenia - hem/onc following, getting therapeutic PLT transfusions - ETOH withdrawal, hepatic encephalopathy per primary PLAN - await liver w/u - cont IV solumedrol - pentoxifylline - xifaxan - lactulose - can do enemas if no PO intake or NGT for admin - monitor labs - further recs as case unfolds Pt seen by myself and Dr Fairbanks and this note is written on her behalf (Geno Cardenas) Physician Comments seen, examined agree with above (Marlin Fairbanks MD) Geno Cardenas Dec 01, 2017 11:34 Marlin Fairbanks MD Dec 01, 2017 18:07
[2017-12-01 12:00] LABS: HEPATITIS A AB IGM NEGATIVE (NEGATIVE); HEPATITIS B CORE AB IGM NEGATIVE (NEGATIVE); HEPATITIS B SURFACE ANTIGEN NEGATIVE (NEGATIVE); HEPATITIS C AB IgG NEGATIVE (NEGATIVE)
--- NOTE | 2017-12-01 12:05 | HHI.FPPN ---
Subjective Remarks Mr Connors had no acute events overnight. He is still obtunded and hard to rouse, jaundiced with scleral icterus, on rebreather @ 12L O2 with O2 sats in low to mid 90s, and the admissions manager rn is working to wean his Precedex. When roused with sternal rub, he can follow simple commands (squeeze hand), knows his name and that he is in a hospital in [place]. He asked why he was in hand restraints and was told it was for his safety. He is still encephalopathic. (Quinn Valdez MD R1) Objective Vitals Vital Signs Date Time Temp Pulse Resp B/P (MAP) Pulse Ox O2 Delivery O2 Flow Rate FiO2 12/01/17 08:40 97 Partial Rebreather 12.00 12/01/17 06:00 82 12/01/17 04:00 81 12/01/17 04:00 81 27 130/76 (94) 97 12/01/17 02:00 80 12/01/17 00:00 84 12/01/17 00:00 98.2 84 25 127/80 (96) 95 11/30/17 22:00 77 11/30/17 20:03 98 Non-Rebreather 15.00 11/30/17 20:00 97.7 80 28 122/81 (95) 97 11/30/17 20:00 80 11/30/17 18:00 74 11/30/17 16:00 79 11/30/17 16:00 97.2 79 22 144/90 (108) 88 11/30/17 14:00 75 11/30/17 12:00 77 11/30/17 12:00 97.8 77 21 140/86 (104) 93 I/O 11/30/17 11/30/17 11/30/17 12/01/17 12/01/17 12/01/17 07:00 15:00 23:00 07:00 15:00 23:00 Intake Total 207 ml 150 ml 2765 ml 2038 ml Output Total 2450 ml 1575 ml Balance 207 ml 150 ml 315 ml 463 ml Intake Oral 0 ml IV Total 150 ml 2765 ml 2038 ml Platelets 207 ml Output Urine Total 2450 ml 1575 ml # Bowel Movements 0 (Quinn Valdez MD R1) Result Diagram: 12/01/1745212/01/17452 Objective Remarks GENERAL: This is a well-nourished, well-developed very jaundiced patient currently obtunded on precedex drip at 25.5mg SKIN: No rashes or lesions. Cool and dry. Ecchymoses on left forearm and left upper back. plus petechiae and spider angioma HEAD: Atraumatic. Normocephalic. EYES: prominent scleral icterus. No injection or drainage. ENT: Nose without bleeding, purulent drainage or septal hematoma. Airway patent. Tongue with bilateral lacerations NECK: Trachea midline. No JVD or lymphadenopathy. Supple, nontender, no meningeal signs. CARDIOVASCULAR: Regular rate and rhythm without murmurs, gallops, or rubs. RESPIRATORY: Breath sounds equal bilaterally. No rales, or rhonchi. GASTROINTESTINAL: Abdomen soft, non-tender, distended. No hepato-splenomegaly, or palpable masses. No guarding. +Fluid wave. Striae and jaundice. MUSCULOSKELETAL: Extremities without clubbing, cyanosis, or edema. No joint tenderness, effusion, or edema noted. No calf tenderness. NEUROLOGICAL: Awake and alert. Motor and sensory grossly within normal limits. Normal speech. sedated so no tremors now Medications and IVs Current Medications Medications (Trade) Dose Ordered Sig/Jeremy Route Start Time Stop Time Status Last Admin (NS Flush) 2 ml UNSCH PRN IV FLUSH 11/28/17 11:00 (NS Flush) 2 ml BID IV FLUSH 11/28/17 21:00 12/01/17 10:50 (Folate) 1 mg DAILY PO 11/28/17 11:00 12/03/17 10:59 12/01/17 10:52 (Vitamin B1) 100 mg DAILY PO 11/28/17 11:00 12/01/17 10:51 (Theragran M Tab) 1 tab DAILY PO 11/28/17 11:00 12/03/17 10:59 12/01/17 10:51 (Romazicon Inj) 0.2 mg Q1M PRN IV PUSH 11/28/17 11:00 (Ativan) 1 mg Q4H PRN PO 11/28/17 11:00 (Ativan Inj) 1 mg Q4H PRN IV PUSH 11/28/17 11:00 (Ativan) 2 mg Q2H PRN PO 11/28/17 11:00 (Ativan Inj) 2 mg Q2H PRN IV PUSH 11/28/17 11:00 12/01/17 04:09 (Ativan Inj) 2 mg Q1H PRN IV PUSH 11/28/17 11:00 11/29/17 18:45 (Ativan Inj) 2 mg Q15M PRN IV PUSH 11/28/17 11:00 11/30/17 00:22 (Lactulose Liq) 30 ml TID PO 11/28/17 13:00 12/01/17 10:52 (Duoneb Neb) 1 ampule Q6HR NEB INH 11/28/17 16:00 12/01/17 08:18 (Coreg) 6.25 mg BID PO 11/28/17 21:00 Future Hold 11/29/17 21:12 (KCl) 10 meq DAILY PO 11/29/17 09:00 12/01/17 10:52 (Aldactone) 25 mg DAILY PO 11/29/17 09:00 12/01/17 10:52 (Tylenol) 650 mg Q6H PRN PO 11/28/17 18:45 (Habitrol 7 Mg Patch.24 Hr) 1 patch DAILY T-DERMAL 11/29/17 09:00 12/01/17 10:51 Miscellaneous Information 1 HS T-DERMAL 11/29/17 21:00 11/30/17 20:55 (Librium) 25 mg BID PO 11/29/17 14:45 Future Hold 11/29/17 21:12 (Benadryl) 25 mg Q4H PRN PO 11/29/17 14:45 (SoluMEDROL INJ) 60 mg DAILY IV PUSH 11/29/17 16:00 12/01/17 10:53 (TRENtal SR) 400 mg Q8HR PO 11/29/17 16:00 12/01/17 10:51 (Xifaxan) 550 mg BID PO 11/29/17 21:00 12/01/17 10:51 (Lasix Inj) 20 mg BID@09,18 IV PUSH 11/30/17 09:00 12/01/17 10:50 Potassium Chloride 100 ml @ 50 mls/hr Q2H PRN IV 11/30/17 08:45 Potassium Chloride 100 ml @ 50 mls/hr Q2H PRN IV 11/30/17 08:45 11/30/17 21:43 (K-Lyte Cl Eff) 50 meq UNSCH PRN PO 11/30/17 08:45 Potassium Chloride 100 ml @ 25 mls/hr UNSCH PRN IV 11/30/17 08:45 Potassium Chloride 100 ml @ 50 mls/hr Q2H PRN IV 11/30/17 08:45 Magnesium Sulfate 4 gm/Sodium Chloride 100 ml @ 50 mls/hr UNSCH PRN IV 11/30/17 08:45 (Mag-Ox) 800 mg UNSCH PRN PO 11/30/17 08:45 Magnesium Sulfate 2 gm/Sodium Chloride 100 ml @ 50 mls/hr UNSCH PRN IV 11/30/17 08:45 (K-Phos) 2,000 mg Q4H PRN PO 11/30/17 08:45 Sodium Phosphate 30 mmol/Sodium Chloride 250 ml @ 42 mls/hr UNSCH PRN IV 11/30/17 08:45 (K-Phos) 2,000 mg UNSCH PRN PO/TUBE 11/30/17 08:45 Potassium Phosphate 30 mmol/ Sodium Chloride 260 ml @ 42 mls/hr UNSCH PRN IV 11/30/17 08:45 (Lopressor Inj) 1.25 mg Q6H IV PUSH 11/30/17 09:00 12/01/17 04:08 (Protonix Inj) 40 mg Q24H IV PUSH 11/30/17 10:00 12/01/17 10:50 Dexmedetomidine HCl 1000 mcg/ Sodium Chloride 250 ml @ 5.15 mls/hr TITRATE PRN IV 11/30/17 10:15 12/01/17 06:12 (Haldol Inj) 5 mg Q4H PRN IV PUSH 11/30/17 20:45 (D50w (Vial) Inj) 50 ml UNSCH PRN IV PUSH 12/01/17 09:45 (Glucagon Inj) 1 mg UNSCH PRN OTHER 12/01/17 09:45 (NovoLIN R SUPPLEMENTAL SCALE) 1 Q4H SQ 12/01/17 11:00 (Quinn Vladez MD R1) A/P Assessment and Plan Mr. Connors is a 42 yo white male with a PMH of cirrhosis, HTN, and COPD presenting with alcohol withdrawal. He is being admitted to our inpatient service and required transfer to [facility] for more intensive care. 12/01: goals today include: Glass Tinter weaning Precedex, restart lactulose PO if possible, if not, restart via NG tube, wean supplemental O2 as tolerated (Quinn Valdez MD R1) Attending Attestation Patient seen and examined. Case reviewed and discussed with the resident team. Agree with plan of care as discussed with me and documented in the resident note. very poor liver function. hopefully he gets spontaneous improvement. at least, his bone marrow is recovering to some degree (Yoli Romero MD) Problem List: (1) Alcohol withdrawal ICD Codes: F10.239 - Alcohol dependence with withdrawal, unspecified Status: Acute Plan: Quit drinking alcohol a day and a half prior to admission. Likely had a seizure at home. * CIWA protocol, escalated care to precedex drip now * Seizure precautions * Rally pack, change to iv * his liver is so poor librium would be a concern as the half life is so long even under normal circumstances. he needed restraints as his actions were compromising his care and he was wandering the yang and perhaps trying to leave the hospital as well as stopping his FFP * will need intensive care until he starts to improve from his withdrawals. appreciate help of Glass Tinter as required (2) Thrombocytopenia ICD Codes: D69.6 - Thrombocytopenia, unspecified Status: Acute Plan: now improved. Platelets on admission at 14 --> 33 on 12/01 * Repeat CBC at 1500 showed decrease of platelets to 12, then 10 * Transfused platelets and repeated CBC * called Hematology as he may have DIC. appreciate their help * had platelets and FFP * he is currently at a level that should not require more transfusions unless ( hopefully not!) he started to bleed (3) Hyponatremia ICD Codes: E87.1 - Hypo-osmolality and hyponatremia Status: Acute Plan: Admission was 132. likely fluid overload from cirrhosis; 140 on 12/01 -- corrected * Fluid restrict to 2 L/day * Continue to monitor (4) Alcoholic liver disease ICD Codes: K70.9 - Alcoholic liver disease, unspecified Status: Chronic Plan: Patient admits to drinking admitted by him a 12 pack of beer a day, his reports a case per day. ABC shows macrocytic anemia. AST greater than ALT on hepatic function panel. Ammonia level was elevated to 79. MELD score is 26-27 with a 19.6% estimated 3-month mortality * MELD score is very high especially considering his age. * Ordered hepatitis panel * Lactulose 30 mL's P0 3 times a day, unable to take po now. can resume soon hopefully * Continue at home medications of furosemide and spironolactone. had to change the lasix to iv for now. * Restrict sodium to 2 g a day * discussed with Mr Dong how terrible his liver is and that this is life threatening. offered help in quitting alcohol * spoke to his 11/29 * 12/01: Plan to restart lactulose by NG tube if not able to do so via mouth (5) Macrocytic anemia ICD Codes: D53.9 - Nutritional anemia, unspecified Status: Acute Plan: Most likely from his chronic alcoholism * Will continue to monitor * developing pancytopenia but at least plts are improved * Rally pack as above (6) Hypertension ICD Codes: I10 - Essential (primary) hypertension Plan: * continue home medication of carvedilol when taking po * for now to avoid rebound tachycardia will give low dose iv metoprolol (7) COPD (chronic obstructive pulmonary disease) ICD Codes: J44.9 - Chronic obstructive pulmonary disease, unspecified Plan: * DuoNeb nebs as needed (8) FEN Status: Acute Plan: Fluids: too sedated to take po, on iv maintenance. Electrolytes: monitor and replete as needed. on electrolyte protocol in C Nutrition: heart-healthy diet if able to eat DVT Prophylaxis: Early ambulation. Bilateral SCDs. with multiple clotting abnormalities cannot have any heparin, etc GI Prophylaxis: Pantoprazole have to change to iv as he cannot take po Fever/pain management: Tylenol 650 mg po not to exceed 2000mg/day (Quinn Valdez MD R1) Problem Qualifiers (1) Alcohol withdrawal: Qualified Codes: F10.239 - Alcohol dependence with withdrawal, unspecified (2) Hypertension: Qualified Codes: I10 - Essential (primary) hypertension (3) COPD (chronic obstructive pulmonary disease): Qualified Codes: J44.9 - Chronic obstructive pulmonary disease, unspecified Quinn Valdez MD R1 Dec 01, 2017 12:05 Yoli Romero MD Dec 02, 2017 12:28
[2017-12-01] MEDS: HALOPERIDOL LACTATE 5 MG/ML AMP IV PUSH PRN (12:27)
[2017-12-01] MEDS: REMOVE OLD PATCH T-DERMAL SCH (19:57)
[2017-12-02] VITALS (21 sets, daily range): BP systolic 100–128; BP diastolic 59–92; PULSE 79–91; RESP 24–35; TEMP 96.7–99.6; O2SAT 92–100
[2017-12-02] MEDS: DEXMEDETOMIDINE INJ 1,000 MCG in SODIUM CHLOR 0.9% 250 ML INJ 240 ML IV PRN ×3 (01:35→22:55)
[2017-12-02] MEDS: LACTULOSE SYRUP 20 GM/30 ML CUP PO SCH ×5 (02:32→22:18)
[2017-12-02] MEDS: METOPROLOL TARTRATE 5 MG/5 ML VIAL IV PUSH SCH ×4 (02:32→20:13)
[2017-12-02] MEDS: RESP: ALBUTEROL 2.5 MG/IPRATROPIUM 0.5 MG NEB (SCH) INH ×2 (03:47→10:00)
[2017-12-02] MEDS: INSULIN NovoLIN REGULAR SUPPLEMENTAL SCALE SQ SCH ×5 (04:00→20:00)
[2017-12-02] MEDS: PENTOXIFYLLINE 400 MG CONTROLLED RELEASE TAB PO SCH ×3 (04:06→22:18)
[2017-12-02] MEDS: LORazepam 2 MG/ML VIAL IV PUSH PRN ×5 (06:02→22:19)
[2017-12-02 06:32] LABS: AMORPHOUS SEDIMENT, URINE RARE; BACTERIA, URINE RARE /hpf; BILIRUBIN, URINE LARGE (NEG); BLOOD, URINE NEG (NEG); GLUCOSE,URINE NEG (NEG); KETONE, URINE NEG (NEG); MUCUS URINE FEW /lpf (OCC); NITRITE,URINE NEG (NEG); PH, URINE 6.5 (5.0-8.5); SQUAMOUS EPITHELIAL CELL URINE 1 /hpf (0-5); URINE COLOR DARK-YELLOW (YELLW/STRAW); URINE LEUKOCYTE ESTERASE NEG (NEG)
[2017-12-02 07:44] LABS: HEMATOCRIT 34.1 % (39.0-51.0); HEMOGLOBIN 12.1 GM/DL (13.0-17.0); MEAN CELL VOLUME 104.1 FL (80.0-100.0); MEAN CORPUSCULAR HEMOGLOBIN 36.9 PG (27.0-34.0); MEAN CORPUSCULAR HGB CONC 35.4 % (32.0-36.0); MEAN PLATELET VOLUME 10.3 FL (7.0-11.0); PLATELET COUNT 44 TH/MM3 (150-450); RED BLOOD COUNT 3.28 MIL/MM3 (4.50-5.90); RED CELL DISTRIBUTION WIDTH 22.5 % (11.6-17.2); WHITE BLOOD COUNT 5.4 TH/MM3 (4.0-11.0)
[2017-12-02 08:07] LABS: ALBUMIN 2.4 GM/DL (3.4-5.0); ALT (GPT) 42 U/L (12-78); AST (GOT) 112 U/L (15-37); BICARBONATE 22.8 MEQ/L (21.0-32.0); BLOOD UREA NITROGEN 25 MG/DL (7-18); CALCIUM 8.3 MG/DL (8.5-10.1); CHLORIDE 109 MEQ/L (98-107); GLOMERULAR FILTRATION RATE 102 ML/MIN (>89); GLUCOSE,RANDOM 151 MG/DL (74-106); SODIUM (NA) 142 MEQ/L (136-145)
[2017-12-02 08:08] LABS: CREATININE 0.83 MG/DL (0.60-1.30)
[2017-12-02 08:18] LABS: ALKALINE PHOSPHATASE 257 U/L (45-117); TOTAL BILIRUBIN ADULT 29.1 MG/DL (0.2-1.0); TOTAL PROTEIN 6.6 GM/DL (6.4-8.2)
--- NOTE | 2017-12-02 08:30 | HHI.CCPN ---
Subjective Remarks/Hospital Course Hospital Course: 42-year-old white male with alcoholic liver cirrhosis, HTN, and COPD presents after a possible seizure at home. Per chart review patient's reported that he got out of bed confused. He then clenched up his arms and started shaking. His helped him to the floor where he continued to be clenched and shaking and was not responding to her when she was talking to him. She then called 911. He seemed to come back to when the EMS arrived at the house. He states that he does not remember anything that happened from this morning. He was confused and tired. No achy muscles. Of note he quit drinking alcohol a day and a half prior to admission. He would drink a 12 pack of beer a day at minimum up to a case a day. He had previously quit alcohol but started up again in September when his mother . He then decided to quit cold turkey. Lately he has been feeling shaky, having blurry vision. He was admitted to medicine for with diagnosis of alcohol dependence when he developed severe alcohol withdrawal symptoms requiring to be transferred to ICU and started on Precedex drip. Subjective: 11/30: remains encephalopathic and intermittently severely agitated. RASS -3 or + 1. on Precedex infusion. ROS unobtainable due to mental status. 12/01 Patient remains encephalopathic on Precedex dip 1mic/kg/hr. Afebrile. 12/02 No events overnight. Patient is more awake and alert this morning. Remains on Precedex drip 1.2mics/kg/hr. Afebrile. Objective Vital Signs Date Time Temp Pulse Resp B/P (MAP) Pulse Ox O2 Delivery O2 Flow Rate FiO2 12/02/17 07:33 100 Partial Non-Rebreather 12/02/17 07:32 97.6 12/02/17 07:00 79 30 121/74 (90) 12/02/17 05:10 15.00 Intake and Output 12/02/17 12/02/17 12/03/17 08:00 16:00 00:00 Intake Total 1150 ml Output Total 2000 ml Balance -850 ml Result Diagram: 12/01/17 0453 12/02/17 0727 Other Results Laboratory Tests Test 12/01/17 12:09 12/02/17 05:30 12/02/17 07:01 12/02/17 07:27 Ammonia 73 MCMOL/L 99 MCMOL/L Urine Color DARK-YELLOW Urine Turbidity HAZY Urine pH 6.5 Urine Specific Electra 1.014 Urine Protein NEG mg/dL Urine Glucose (UA) NEG mg/dL Urine Ketones NEG mg/dL Urine Occult Blood NEG Urine Nitrite NEG Urine Bilirubin LARGE Urine Urobilinogen LESS THAN 2.0 MG/DL Urine Leukocyte Esterase NEG Urine RBC LESS THAN 1 /hpf Urine WBC 2 /hpf Urine Squamous Epithelial Cells 1 /hpf Urine Amorphous Sediment RARE Urine Bacteria RARE /hpf Urine Mucus FEW /lpf Microscopic Urinalysis Comment CATH-CULTURE IND Blood Urea Nitrogen 25 MG/DL Creatinine 0.83 MG/DL Random Glucose 151 MG/DL Total Protein 6.6 GM/DL Albumin 2.4 GM/DL Calcium Level 8.3 MG/DL Alkaline Phosphatase 257 U/L Aspartate Amino Transf (AST/SGOT) 112 U/L Alanine Aminotransferase (ALT/SGPT) 42 U/L Total Bilirubin 29.1 MG/DL Sodium Level 142 MEQ/L Potassium Level 3.4 MEQ/L Chloride Level 109 MEQ/L Carbon Dioxide Level 22.8 MEQ/L Anion Gap 10 MEQ/L Estimat Glomerular Filtration Rate 102 ML/MIN Imaging Last Impressions Abdomen/Pelvis CT 11/29/17 0000 Signed Impressions: Service Date/Time: Thursday, November 30, 2017 06:32 - CONCLUSION: 1. Evidence of cirrhosis and portal venous hypertension with marked splenomegaly and recannulized periumbilical vein. 2. Cholelithiasis and mild nonspecific diffuse gallbladder wall thickening. Aly Collins MD Abdomen Ultrasound 11/29/17 0000 Signed Impressions: Service Date/Time: Wednesday, November 29, 2017 16:26 - CONCLUSION: 1. Hepatosplenomegaly 2. Chronic appearing parenchymal liver disease with suspected steatosis. 3. Cholelithiasis 4. Mild prominence of the common bile measured 8 mm. Bernabe Lutz MD Head CT 11/28/17 0000 Signed Impressions: Service Date/Time: Tuesday, November 28, 2017 08:23 - CONCLUSION: No acute disease. Francesco Hernandez MD Chest X-Ray 11/28/17 0000 Signed Impressions: Service Date/Time: Tuesday, November 28, 2017 08:29 - CONCLUSION: Cardiomegaly. No acute pulmonary disease. Artur Magaña MD Objective Remarks GENERAL: Patient is lying in bed in NAD SKIN: Warm and dry. HEAD: Normocephalic. EYES: No scleral icterus. No injection or drainage. NECK: Supple, trachea midline. No JVD or lymphadenopathy. CARDIOVASCULAR: Regular rate and rhythm without murmurs, gallops, or rubs. RESPIRATORY: Breath sounds equal bilaterally. No accessory muscle use. GASTROINTESTINAL: Abdomen soft, non-tender, nondistended. MUSCULOSKELETAL: No cyanosis, or edema. Neuro: Awake and alert A/P Assessment and Plan Assessment: 42yM with Alcoholic Cirrhosis and Acute Alcohol withdraw syndrome, Severe Agitated Delirium requiring continuous iv sedation for patient safety and to prevent seizures. Remains critically ill without improvement. Multiple attempts throughout the day to wean iv sedation were unsuccessful and patient continues to require high dose sedatives in an ICU setting to prevent acute worsening of his life-threatening agitated delirium and withdraw. remains critically ill. 1)Resp Insuff 2)Encephalopathy 3)Alcohol withdrawal 4)Cirrhosis of liver 5)Hyperbilirubinemia 6)Anemia, thrombocytopenia 7)Coagulopathy 2nd liver disease 8)Hx Asthma 9)Hx HTN Plan Neuro: Monitor neuro status Wean off Precedex drip CIWA protocol Thiamine folate and multivitamins Haldol for breakthrough agitation. Increase Lactulose 30ml Q4, Rifaximin, Solumedrol 60mg daily. Ammonia level 99 this morning. Pulm: Continue with oxygen keep sat >92% CV: Monitor HR and BP keep MAP>65mmHg : Monitor renal function, I/O's, electrolytes replacement per protocol. On Lasix 20mg BID, Aldactone 25mg daily ID: Monitor for signs of infections ( Fever, WBC) CXR: No acute disease Heme: Monitor CBC, coags GI: continue Protonix 40mg daily, on PO diet. Check US abdomen eval for ascites Endo: SSI to maintain Euglycemia GI prophylaxis- On Protonix 40mg daily DVT prophylaxis- SCD, not a a candidate for chemical AC prophylaxis due to thrombocytopenia with PLT count < 50 Level 3 . Carla Rasmussen MD Dec 02, 2017 08:30
[2017-12-02 08:31] LABS: BANDS 4 % (0-6); LYMPHOCYTES 1 % (9-44); MONOCYTES 15 % (0-8); MYELOCYTES 1 % (0-0); NEUTROPHIL # MANUAL DIFF 4.5 TH/MM3 (1.8-7.7); POLYS (SEG NEUTROPHILS) 79 % (16-70); TARGET CELLS 2+ (NORMAL)
[2017-12-02] MEDS: FUROSEMIDE 20 MG/2 ML VIAL IV PUSH SCH ×2 (08:36→18:00)
[2017-12-02] MEDS: SODIUM CHLORIDE 0.9% FLUSH 10 ML FLUSH IV FLUSH SCH ×2 (08:36→20:14)
[2017-12-02] MEDS: MULTIVITAMINS/MINERALS THERAPEUTIC TAB PO SCH (08:37)
[2017-12-02] MEDS: FOLIC ACID 1 MG TAB PO SCH (08:37)
[2017-12-02] MEDS: PANTOPRAZOLE SODIUM 40 MG VIAL IV PUSH SCH (08:37)
[2017-12-02] MEDS: THIAMINE HCL 100 MG TAB PO SCH (08:37)
[2017-12-02] MEDS: methylPREDNISolone SOD SUCC 125 MG/2 ML VIAL IV PUSH SCH (08:37)
[2017-12-02] MEDS: SPIRONOLACTONE 25 MG TAB PO SCH (08:37)
[2017-12-02] MEDS: NICOTINE 7 MG/24 HR PATCH T-DERMAL SCH (08:38)
[2017-12-02] MEDS: RIFAXIMIN 550 MG TAB PO SCH ×2 (08:38→20:13)
[2017-12-02] MEDS: POTASSIUM CHLORIDE 10 MEQ CONTROLLED RELEASE TAB PO SCH (08:38)
--- NOTE | 2017-12-02 09:19 | RADRPT ---
EXAM DATE/TIME: 12/02/2017 08:42 [facility] COMPARISON: US ABDOMEN - LOWER LIMITED, April 06, 2016, 11:51. INDICATIONS : Ascites. MEDICAL HISTORY : Thyroid disease. Seizures. Hypertension. Gall bladder disease. Hernia. GERD. Liver disease. ETOH. SURGICAL HISTORY : Right inguinal hernia. Orthopaedic surgery. ENCOUNTER: Initial ACUITY: 1 day PAIN SCORE: 0/10 LOCATION: Abdomen. AREA EVALUATED: Abdomen. FINDINGS: Imaging of the abdomen and pelvis was performed to evaluate for ascites for possible paracentesis. N o ascitic fluid was identified. Moderate splenomegaly is noted. CONCLUSION: 1. No free fluid identified. 2. Moderate splenomegaly. Azeem Hartman MD on December 02, 2017 at 9:16 Board Certified Radiologist. This report was verified electronically.
--- NOTE | 2017-12-02 09:24 | PD.ONC.PN ---
Subjective Subjective Remarks Patient seen and examined, vital signs, labs, medications and overnight events reviewed. Per the patient's nurse, he has had normal oxygen saturations on room air when the pulse ox captures a good signal. The patient continues to have high CIWA scores on the Precedex drip and continues to require IV benzodiazepines in addition to that for management of his delirium tremens. He continues to bruise easily over his arms and legs but there has not been spontaneous internal bleeding which is apparent. His platelet counts were 44,000 today. Objective Data Date Time Temp Pulse Resp B/P (MAP) Pulse Ox O2 Delivery O2 Flow Rate FiO2 12/02/17 07:33 100 Partial Non-Rebreather 12/02/17 07:32 97.6 12/02/17 07:00 79 30 121/74 (90) 100 12/02/17 06:00 85 12/02/17 05:12 97 Partial Non-Rebreather 12/02/17 05:10 98 Partial Rebreather 15.00 12/02/17 04:00 85 12/02/17 04:00 98.4 85 28 102/61 (75) 92 12/02/17 02:00 85 12/02/17 00:00 85 12/02/17 00:00 99.6 85 25 124/77 (93) 94 12/01/17 22:00 94 Nasal Cannula 4.00 12/01/17 22:00 86 12/01/17 21:15 99 Partial Rebreather 12.00 12/01/17 20:00 85 12/01/17 20:00 98.6 85 24 117/71 (86) 93 12/01/17 19:00 97 Non-Rebreather 12/01/17 18:00 84 12/01/17 18:00 84 36 106/73 (84) 98 12/01/17 17:00 87 12/01/17 17:00 87 23 96/69 (78) 95 12/01/17 16:00 98.7 85 16 110/60 (77) 95 12/01/17 16:00 85 12/01/17 15:00 87 12/01/17 15:00 87 27 96/59 (71) 98 12/02/17 12/02/17 12/02/17 07:00 15:00 23:00 Intake Total 1150 ml Output Total 2000 ml Balance -850 ml Result Diagram: 12/02/17 0701 12/02/17 0727 Laboratory Results Laboratory Tests Test 12/01/17 12:09 12/02/17 05:30 12/02/17 07:01 12/02/17 07:27 Ammonia 73 MCMOL/L 99 MCMOL/L Urine Color DARK-YELLOW Urine Turbidity HAZY Urine pH 6.5 Urine Specific [place] 1.014 Urine Protein NEG mg/dL Urine Glucose (UA) NEG mg/dL Urine Ketones NEG mg/dL Urine Occult Blood NEG Urine Nitrite NEG Urine Bilirubin LARGE Urine Urobilinogen LESS THAN 2.0 MG/DL Urine Leukocyte Esterase NEG Urine RBC LESS THAN 1 /hpf Urine WBC 2 /hpf Urine Squamous Epithelial Cells 1 /hpf Urine Amorphous Sediment RARE Urine Bacteria RARE /hpf Urine Mucus FEW /lpf Microscopic Urinalysis Comment CATH-CULTURE IND White Blood Count 5.4 TH/MM3 Red Blood Count 3.28 MIL/MM3 Hemoglobin 12.1 GM/DL Hematocrit 34.1 % Mean Corpuscular Volume 104.1 FL Mean Corpuscular Hemoglobin 36.9 PG Mean Corpuscular Hemoglobin Concent 35.4 % Red Cell Distribution Width 22.5 % Platelet Count 44 TH/MM3 Mean Platelet Volume 10.3 FL CBC Comment AUTO DIFF Differential Total Cells Counted 100 Neutrophils % (Manual) 79 % Band Neutrophils % 4 % Lymphocytes % 1 % Monocytes % 15 % Neutrophils # (Manual) 4.5 TH/MM3 Myelocytes 1 % Differential Comment FINAL DIFF MANUAL Platelet Estimate LOW Platelet Morphology Comment ENLARGED Target Cells 2+ Blood Urea Nitrogen 25 MG/DL Creatinine 0.83 MG/DL Random Glucose 151 MG/DL Total Protein 6.6 GM/DL Albumin 2.4 GM/DL Calcium Level 8.3 MG/DL Alkaline Phosphatase 257 U/L Aspartate Amino Transf (AST/SGOT) 112 U/L Alanine Aminotransferase (ALT/SGPT) 42 U/L Total Bilirubin 29.1 MG/DL Sodium Level 142 MEQ/L Potassium Level 3.4 MEQ/L Chloride Level 109 MEQ/L Carbon Dioxide Level 22.8 MEQ/L Anion Gap 10 MEQ/L Estimat Glomerular Filtration Rate 102 ML/MIN Culture Results Microbiology Date/Time Source Procedure Growth Status 12/02/17 05:30 Urine Catheterized Urine Urine Culture Pending Received Administered Medications Medications (Trade) Dose Ordered Sig/Jeremy Route PRN Reason Start Time Stop Time Status Last Admin Dose Admin Sodium Chloride (NS Flush) 2 ml UNSCH PRN IV FLUSH FLUSH AFTER USING IV ACCESS 11/28/17 11:00 12/01/17 17:20 Sodium Chloride (NS Flush) 2 ml BID IV FLUSH 11/28/17 21:00 12/02/17 08:36 Folic Acid (Folate) 1 mg DAILY PO 11/28/17 11:00 12/03/17 10:59 12/02/17 08:37 Thiamine HCl (Vitamin B1) 100 mg DAILY PO 11/28/17 11:00 12/02/17 08:37 Multivitamins/ Minerals Therapeutic (Theragran M Tab) 1 tab DAILY PO 11/28/17 11:00 12/03/17 10:59 12/02/17 08:37 Lorazepam (Ativan Inj) 1 mg Q4H PRN IV PUSH CIWA 8 - 10 11/28/17 11:00 12/02/17 06:02 Lorazepam (Ativan Inj) 2 mg Q2H PRN IV PUSH CIWA 11-14 11/28/17 11:00 12/01/17 17:20 Lorazepam (Ativan Inj) 2 mg Q1H PRN IV PUSH CIWA 15-20 11/28/17 11:00 11/29/17 18:45 Lorazepam (Ativan Inj) 2 mg Q15M PRN IV PUSH CIWA > 20 11/28/17 11:00 11/30/17 00:22 Albuterol/ Ipratropium (Duoneb Neb) 1 ampule Q6HR NEB INH 11/28/17 16:00 12/02/17 03:47 Carvedilol (Coreg) 6.25 mg BID PO 11/28/17 21:00 Future Hold 11/29/17 21:12 Potassium Chloride (KCl) 10 meq DAILY PO 11/29/17 09:00 12/02/17 08:38 Spironolactone (Aldactone) 25 mg DAILY PO 11/29/17 09:00 12/02/17 08:37 Nicotine (Habitrol 7 Mg Patch.24 Hr) 1 patch DAILY T-DERMAL 11/29/17 09:00 12/02/17 08:38 Miscellaneous Information 1 HS T-DERMAL 11/29/17 21:00 12/01/17 19:57 Chlordiazepoxide (Librium) 25 mg BID PO 11/29/17 14:45 Future Hold 11/29/17 21:12 Methylprednisolone Sodium Succinate (SoluMEDROL INJ) 60 mg DAILY IV PUSH 11/29/17 16:00 12/02/17 08:37 Pentoxifylline (TRENtal SR) 400 mg Q8HR PO 11/29/17 16:00 12/02/17 04:06 Rifaximin (Xifaxan) 550 mg BID PO 11/29/17 21:00 12/02/17 08:38 Furosemide (Lasix Inj) 20 mg BID@,18 IV PUSH 11/30/17 09:00 12/02/17 08:36 Potassium Chloride 100 ml @ 50 mls/hr Q2H PRN IV For Potassium 2.8 - 3.2 mEq/L 11/30/17 08:45 11/30/17 21:43 Metoprolol Tartrate (Lopressor Inj) 1.25 mg Q6H IV PUSH 11/30/17 09:00 12/02/17 02:32 Pantoprazole Sodium (Protonix Inj) 40 mg Q24H IV PUSH 11/30/17 10:00 12/02/17 08:37 Dexmedetomidine HCl 1000 mcg/ Sodium Chloride 250 ml @ 5.15 mls/hr TITRATE PRN IV SEDATION 11/30/17 10:15 12/02/17 01:35 Haloperidol Lactate (Haldol Inj) 5 mg Q4H PRN IV PUSH agitation 11/30/17 20:45 12/01/17 12:27 Insulin Human Regular (NovoLIN R SUPPLEMENTAL SCALE) 1 Q4H SQ 12/01/17 20:00 12/01/17 23:31 Objective Remarks GENERAL PHYSICAL APPEARANCE: Mr. Cortés is a young male, he is laying in bed, he is in 4 point soft restraints, he appears to be alert and awake but is not oriented. His skin has a deeply icteric hue. He appears anxious HEAD, EYES, EARS, NOSE, THROAT: Head atraumatic, normocephalic. Conjunctivae are non-pale. The sclerae are deeply icteric. ORAL EXAM: No pharyngeal erythema. He has mucosal icterus. NECK EXAM: No palpable cervical or supraclavicular lymphadenopathy. RESPIRATORY EXAM: Good air movement bilaterally without any added breath sounds. CARDIOVASCULAR EXAM: Tachycardic, regular, S1-S2. No obvious murmurs, rubs or gallops. ABDOMINAL EXAM: Protuberant belly, soft, he has subcutaneous varices noted. I think the spleen does appear to be enlarged as does the liver. Positive bowel sounds. LOWER EXTREMITIES: Bilateral pretibial edema. No calf tenderness. SKIN: Icteric with extensive bruising and ecchymotic lesions. Assessment/Plan Problem List: (1) Thrombocytopenia ICD Codes: D69.6 - Thrombocytopenia, unspecified Status: Acute Plan: --Thrombocytopenia secondary to suspected alcohol-related bone marrow toxicity and high splenic sequestration. --recommend supportive platelet transfusions. (2) Coagulopathy ICD Codes: D68.9 - Coagulation defect, unspecified Plan: --Transfuse fresh frozen plasma as needed --agree with vitamin K supplementation. recommend oral replacement. (3) Alcoholic liver disease ICD Codes: K70.9 - Alcoholic liver disease, unspecified Status: Chronic Plan: --GI following, management per primary team. Assessment 42y/o [place] [facility] [place] admitted after suffering a seizure from alcohol withdrawal at home. Hematology consulted for thrombocytopenia and coagulopathy. history of alcohol abuse and alcohol abuse-related liver cirrhosis, currently in decompensated liver failure due to alcohol abuse. Plan 1. Thrombocytopenia: Secondary to splenic sequestration of platelets. Also there is likely component of alcohol associated marrow toxicity and marrow suppression due to his recent alcohol binge. Continue supportive transfusions as needed to maintain platelet count of over 15,000 if he is not bleeding or over 40,000 if there are signs of bleeding. 2. Deranged coagulation profile: Secondary to impaired hepatic synthetic function related to cirrhosis. Consider as needed fresh frozen plasma transfusions for management of overt bleeding. This would help replace both procoagulant factors as well as naturally occurring anticoagulants such as protein C and protein S. Marcial Castrejon MD Dec 02, 2017 09:24
[2017-12-02] MEDS: HALOPERIDOL LACTATE 5 MG/ML AMP IV PUSH PRN ×2 (10:30→16:09)
--- NOTE | 2017-12-02 13:20 | HHI.GIFU ---
Subjective Remarks Pt resting in bed in NAD. Lethargic. (Geno Cardenas) Objective Vitals I&O Vital Signs Date Time Temp Pulse Resp B/P (MAP) Pulse Ox O2 Delivery O2 Flow Rate FiO2 12/02/17 11:00 85 12/02/17 11:00 85 29 110/71 (84) 100 12/02/17 10:00 82 12/02/17 10:00 82 29 110/60 (77) 100 12/02/17 09:00 82 24 100/63 (75) 98 12/02/17 09:00 82 12/02/17 08:00 83 25 108/59 (75) 97 12/02/17 08:00 83 12/02/17 07:33 100 Partial Non-Rebreather 12/02/17 07:32 97.6 12/02/17 07:00 79 12/02/17 07:00 79 30 121/74 (90) 100 12/02/17 06:00 85 12/02/17 05:12 97 Partial Non-Rebreather 12/02/17 05:10 98 Partial Rebreather 15.00 12/02/17 04:00 85 12/02/17 04:00 98.4 85 28 102/61 (75) 92 12/02/17 02:00 85 12/02/17 00:00 85 12/02/17 00:00 99.6 85 25 124/77 (93) 94 12/01/17 22:00 94 Nasal Cannula 4.00 12/01/17 22:00 86 12/01/17 21:15 99 Partial Rebreather 12.00 12/01/17 20:00 85 12/01/17 20:00 98.6 85 24 117/71 (86) 93 12/01/17 19:00 97 Non-Rebreather 12/01/17 18:00 84 12/01/17 18:00 84 36 106/73 (84) 98 12/01/17 17:00 87 12/01/17 17:00 87 23 96/69 (78) 95 12/01/17 16:00 98.7 85 16 110/60 (77) 95 12/01/17 16:00 85 12/01/17 15:00 87 12/01/17 15:00 87 27 96/59 (71) 98 I/O 12/01/17 12/01/17 12/01/17 12/02/17 12/02/17 12/02/17 06:59 14:59 22:59 06:59 14:59 22:59 Intake Total 2038 ml 480 ml 1150 ml Output Total 1575 ml 1350 ml 2000 ml Balance 463 ml -870 ml -850 ml Intake Oral 480 ml 750 ml IV Total 2038 ml 400 ml Output Urine Total 1575 ml 1350 ml 2000 ml # Bowel Movements 0 0 0 Laboratory Laboratory Tests Test 12/02/17 05:30 12/02/17 07:01 12/02/17 07:27 Urine Color DARK-YELLOW Urine Turbidity HAZY Urine pH 6.5 Urine Specific [place] 1.014 Urine Protein NEG Urine Glucose (UA) NEG Urine Ketones NEG Urine Occult Blood NEG Urine Nitrite NEG Urine Bilirubin LARGE Urine Urobilinogen LESS THAN 2.0 Urine Leukocyte Esterase NEG Urine RBC LESS THAN 1 Urine WBC 2 Urine Squamous Epithelial Cells 1 Urine Amorphous Sediment RARE Urine Bacteria RARE Urine Mucus FEW Microscopic Urinalysis Comment CATH-CULTURE IND White Blood Count 5.4 Red Blood Count 3.28 Hemoglobin 12.1 Hematocrit 34.1 Mean Corpuscular Volume 104.1 Mean Corpuscular Hemoglobin 36.9 Mean Corpuscular Hemoglobin Concent 35.4 Red Cell Distribution Width 22.5 Platelet Count 44 Mean Platelet Volume 10.3 CBC Comment AUTO DIFF Differential Total Cells Counted 100 Neutrophils % (Manual) 79 Band Neutrophils % 4 Lymphocytes % 1 Monocytes % 15 Neutrophils # (Manual) 4.5 Myelocytes 1 Differential Comment FINAL DIFF MANUAL Platelet Estimate LOW Platelet Morphology Comment ENLARGED Target Cells 2+ Blood Urea Nitrogen 25 Creatinine 0.83 Random Glucose 151 Total Protein 6.6 Albumin 2.4 Calcium Level 8.3 Alkaline Phosphatase 257 Aspartate Amino Transf (AST/SGOT) 112 Alanine Aminotransferase (ALT/SGPT) 42 Total Bilirubin 29.1 Sodium Level 142 Potassium Level 3.4 Chloride Level 109 Carbon Dioxide Level 22.8 Anion Gap 10 Estimat Glomerular Filtration Rate 102 Ammonia 99 Date/Time Source Procedure Growth Status 12/02/17 05:30 Urine Catheterized Urine Urine Culture Pending Received Imaging Last Impressions Abdomen Ultrasound 12/02/17 0000 Signed Impressions: Service Date/Time: Saturday, December 02, 2017 08:42 - CONCLUSION: 1. No free fluid identified. 2. Moderate splenomegaly. Azeem Hartman MD Abdomen/Pelvis CT 11/29/17 0000 Signed Impressions: Service Date/Time: Thursday, November 30, 2017 06:32 - CONCLUSION: 1. Evidence of cirrhosis and portal venous hypertension with marked splenomegaly and recannulized periumbilical vein. 2. Cholelithiasis and mild nonspecific diffuse gallbladder wall thickening. Aly Collins MD Head CT 11/28/17 0000 Signed Impressions: Service Date/Time: Tuesday, November 28, 2017 08:23 - CONCLUSION: No acute disease. Francesco Hernandez MD Chest X-Ray 11/28/17 0000 Signed Impressions: Service Date/Time: Tuesday, November 28, 2017 08:29 - CONCLUSION: Cardiomegaly. No acute pulmonary disease. Artur Magaña MD Physical Exam HEENT: normocephalic; atraumatic;icteric CHEST: Cta,shallow respirations CARDIAC: Rrr ABDOMEN: Soft, distended, bowel sounds are present in all four quadrants. EXTREMITIES: No clubbing, cyanosis, or edema. soft restraints SKIN: Normal; no rash; significant jaundice. ecchymoses extremities CHEMICAL SUPERVISOR: lethargic (Geno Cardenas) Assessment and Plan Plan ASSESSMENT - jaundice, elev LFTs - likely ETOH hepatitis. acute on chronic. hx heavy drinking. DF 49. MELD 25. NH decreased to 55. CT abd shows cirrhosis, portal HTN, cholelithiasis. US shows mild prominence CBD 8mm ETOH withdrawal. appears he was started on diet again, so continue lactulose worsening bili. NH up today, on lactulose q4h and taking PO. hep panel negative, AFP 2.5, STEFANY neg. - anemia - macrocytic. no report bleeding. - thrombocytopenia - hem/onc following, getting therapeutic PLT transfusions, FFP - ETOH withdrawal, hepatic encephalopathy per primary PLAN - await rest of liver w/u - cont IV solumedrol - pentoxifylline - xifaxan - lactulose - monitor labs - supportive care Pt seen by myself and Dr Fairbanks and this note is written on her behalf (Geno Cardenas) Geno Cardenas Dec 02, 2017 13:20 Marlin Fairbanks MD Dec 02, 2017 18:47
[2017-12-02 13:24] LABS: SMOOTH MUSCLE TOTAL AUTOABS Negative (Negative)
[2017-12-02 14:45] LABS: ALPHA-1-ANTITRYPSIN 201 mg/dL (100 - 190)
--- NOTE | 2017-12-02 15:53 | HHI.FPPN ---
Subjective Remarks Mr Connors was able to break free of his restraints last night and pull out his IV lines requiring haldol x1 and ativan x2 sedation. This morning he is improving with eyes open and able to attend to the interview. He is still somewhat confused but can state his name and place most times correctly. He is still overtly jaundiced but not in pain. His ng is still draining grossly bloody urine. Speech therapy cleared him for soft and thin liquids and is able to take PO lactulose. Unfortunately, his ammonia level continues to increase. Precedex had been weaned down to 0.2 mcg/kg/hr early this morning, but by late morning was increased to 1.2mcg/kg/hr. He has also been weaned off of the partial rebreather and is now on RA. (Quinn Valdez MD R1) Objective Vitals Vital Signs Date Time Temp Pulse Resp B/P (MAP) Pulse Ox O2 Delivery O2 Flow Rate FiO2 12/02/17 11:00 85 12/02/17 11:00 85 29 110/71 (84) 100 12/02/17 10:00 82 12/02/17 10:00 82 29 110/60 (77) 100 12/02/17 09:00 82 24 100/63 (75) 98 12/02/17 09:00 82 12/02/17 08:00 83 25 108/59 (75) 97 12/02/17 08:00 83 12/02/17 07:33 100 Partial Non-Rebreather 12/02/17 07:32 97.6 12/02/17 07:00 79 12/02/17 07:00 79 30 121/74 (90) 100 12/02/17 06:00 85 12/02/17 05:12 97 Partial Non-Rebreather 12/02/17 05:10 98 Partial Rebreather 15.00 12/02/17 04:00 85 12/02/17 04:00 98.4 85 28 102/61 (75) 92 12/02/17 02:00 85 12/02/17 00:00 85 12/02/17 00:00 99.6 85 25 124/77 (93) 94 12/01/17 22:00 94 Nasal Cannula 4.00 12/01/17 22:00 86 12/01/17 21:15 99 Partial Rebreather 12.00 12/01/17 20:00 85 12/01/17 20:00 98.6 85 24 117/71 (86) 93 12/01/17 19:00 97 Non-Rebreather 12/01/17 18:00 84 12/01/17 18:00 84 36 106/73 (84) 98 12/01/17 17:00 87 12/01/17 17:00 87 23 96/69 (78) 95 12/01/17 16:00 98.7 85 16 110/60 (77) 95 12/01/17 16:00 85 I/O 12/01/17 12/01/17 12/01/17 12/02/17 12/02/17 12/02/17 07:00 15:00 23:00 07:00 15:00 23:00 Intake Total 2038 ml 480 ml 1150 ml Output Total 1575 ml 1350 ml 2000 ml Balance 463 ml -870 ml -850 ml Intake Oral 480 ml 750 ml IV Total 2038 ml 400 ml Output Urine Total 1575 ml 1350 ml 2000 ml # Bowel Movements 0 0 0 (Quinn Valdez MD R1) Result Diagram: 12/02/17 0701 12/02/17 0727 Imaging Last 24 hours Impressions Abdomen Ultrasound 12/02/17 0000 Signed Impressions: Service Date/Time: Saturday, December 02, 2017 08:42 - CONCLUSION: 1. No free fluid identified. 2. Moderate splenomegaly. Azeem Hartman MD Objective Remarks GENERAL: This is a well-nourished, well-developed very jaundiced patient currently obtunded on precedex drip at 25.5mg SKIN: No rashes or lesions. Cool and dry. Ecchymoses on left forearm and left upper back. plus petechiae and spider angioma HEAD: Atraumatic. Normocephalic. EYES: prominent scleral icterus. No injection or drainage. ENT: Nose without bleeding, purulent drainage or septal hematoma. Airway patent. Tongue with bilateral lacerations NECK: Trachea midline. No JVD or lymphadenopathy. Supple, nontender, no meningeal signs. CARDIOVASCULAR: Regular rate and rhythm without murmurs, gallops, or rubs. RESPIRATORY: Breath sounds equal bilaterally. No rales, or rhonchi. GASTROINTESTINAL: Abdomen soft, non-tender, distended. No hepato-splenomegaly, or palpable masses. No guarding. +Fluid wave. Striae and jaundice. MUSCULOSKELETAL: Extremities without clubbing, cyanosis, or edema. No joint tenderness, effusion, or edema noted. No calf tenderness. NEUROLOGICAL: Awake and alert. Motor and sensory grossly within normal limits. Normal speech. sedated so no tremors now Medications and IVs Current Medications Medications (Trade) Dose Ordered Sig/Jeremy Route Start Time Stop Time Status Last Admin (NS Flush) 2 ml UNSCH PRN IV FLUSH 11/28/17 11:00 12/01/17 17:20 (NS Flush) 2 ml BID IV FLUSH 11/28/17 21:00 12/02/17 08:36 (Folate) 1 mg DAILY PO 11/28/17 11:00 12/03/17 10:59 12/02/17 08:37 (Vitamin B1) 100 mg DAILY PO 11/28/17 11:00 12/02/17 08:37 (Theragran M Tab) 1 tab DAILY PO 11/28/17 11:00 12/03/17 10:59 12/02/17 08:37 (Romazicon Inj) 0.2 mg Q1M PRN IV PUSH 11/28/17 11:00 (Ativan) 1 mg Q4H PRN PO 11/28/17 11:00 (Ativan Inj) 1 mg Q4H PRN IV PUSH 11/28/17 11:00 12/02/17 06:02 (Ativan) 2 mg Q2H PRN PO 11/28/17 11:00 (Ativan Inj) 2 mg Q2H PRN IV PUSH 11/28/17 11:00 12/02/17 16:09 (Ativan Inj) 2 mg Q1H PRN IV PUSH 11/28/17 11:00 11/29/17 18:45 (Ativan Inj) 2 mg Q15M PRN IV PUSH 11/28/17 11:00 11/30/17 00:22 (Coreg) 6.25 mg BID PO 11/28/17 21:00 Future Hold 11/29/17 21:12 (KCl) 10 meq DAILY PO 11/29/17 09:00 12/02/17 08:38 (Aldactone) 25 mg DAILY PO 11/29/17 09:00 12/02/17 08:37 (Tylenol) 650 mg Q6H PRN PO 11/28/17 18:45 (Habitrol 7 Mg Patch.24 Hr) 1 patch DAILY T-DERMAL 11/29/17 09:00 12/02/17 08:38 Miscellaneous Information 1 HS T-DERMAL 11/29/17 21:00 12/01/17 19:57 (Librium) 25 mg BID PO 11/29/17 14:45 Future Hold 11/29/17 21:12 (Benadryl) 25 mg Q4H PRN PO 11/29/17 14:45 (SoluMEDROL INJ) 60 mg DAILY IV PUSH 11/29/17 16:00 12/02/17 08:37 (TRENtal SR) 400 mg Q8HR PO 11/29/17 16:00 12/02/17 04:06 (Xifaxan) 550 mg BID PO 11/29/17 21:00 12/02/17 08:38 (Lasix Inj) 20 mg BID@ IV PUSH 11/30/17 09:00 12/02/17 08:36 Potassium Chloride 100 ml @ 50 mls/hr Q2H PRN IV 11/30/17 08:45 Potassium Chloride 100 ml @ 50 mls/hr Q2H PRN IV 11/30/17 08:45 11/30/17 21:43 (K-Lyte Cl Eff) 50 meq UNSCH PRN PO 11/30/17 08:45 Potassium Chloride 100 ml @ 25 mls/hr UNSCH PRN IV 11/30/17 08:45 Potassium Chloride 100 ml @ 50 mls/hr Q2H PRN IV 11/30/17 08:45 Magnesium Sulfate 4 gm/Sodium Chloride 100 ml @ 50 mls/hr UNSCH PRN IV 11/30/17 08:45 (Mag-Ox) 800 mg UNSCH PRN PO 11/30/17 08:45 Magnesium Sulfate 2 gm/Sodium Chloride 100 ml @ 50 mls/hr UNSCH PRN IV 11/30/17 08:45 (K-Phos) 2,000 mg Q4H PRN PO 11/30/17 08:45 Sodium Phosphate 30 mmol/Sodium Chloride 250 ml @ 42 mls/hr UNSCH PRN IV 11/30/17 08:45 (K-Phos) 2,000 mg UNSCH PRN PO/TUBE 11/30/17 08:45 Potassium Phosphate 30 mmol/ Sodium Chloride 260 ml @ 42 mls/hr UNSCH PRN IV 11/30/17 08:45 (Lopressor Inj) 1.25 mg Q6H IV PUSH 11/30/17 09:00 12/02/17 02:32 (Protonix Inj) 40 mg Q24H IV PUSH 11/30/17 10:00 12/02/17 08:37 Dexmedetomidine HCl 1000 mcg/ Sodium Chloride 250 ml @ 5.15 mls/hr TITRATE PRN IV 11/30/17 10:15 12/02/17 01:35 (Haldol Inj) 5 mg Q4H PRN IV PUSH 11/30/17 20:45 12/02/17 16:09 (D50w (Vial) Inj) 50 ml UNSCH PRN IV PUSH 12/01/17 09:45 (Glucagon Inj) 1 mg UNSCH PRN OTHER 12/01/17 09:45 (NovoLIN R SUPPLEMENTAL SCALE) 1 Q4H SQ 12/01/17 20:00 12/01/17 23:31 (Lactulose Liq) 30 ml Q4H PO 12/02/17 11:00 12/02/17 12:03 (Mephyton Liq) 10 mg DAILY PO 12/02/17 09:30 12/06/17 09:29 (Quinn Valdez MD R1) Urinary Catheter: Yes Assessment to: Continue Ng insert reason: Measure Accurate Output (Quinn Valdez MD R1) A/P Assessment and Plan Mr. Connors is a 42 yo white male with a PMH of cirrhosis, HTN, and COPD presenting with alcohol withdrawal. He is being admitted to our inpatient service and required transfer to [facility] [place] intensive care. 12/01: goals today include: Assistant Community Manager weaning Precedex, restart lactulose PO if possible, if not, restart via NG tube, wean supplemental O2 as tolerated 12/02: pt still requiring Precedex 1.2mcg/kg/hr; however, has been cleared for thin liquids/soft diet by speech therapy and has started PO lactulose. supplemental O2 has been weaned. Pt still somewhat confused and prone to agitation. (Quinn Valdez MD R1) Attending Attestation Patient seen and examined. Case reviewed and discussed with the resident team. Agree with plan of care as discussed with me and documented in the resident note. unfortunately his liver is not improving at all. he will get over his alcohol withdrawal but he is not a liver transplant candidate and his liver function is so poor (Yoli Romero MD) Problem List: (1) Alcohol withdrawal ICD Codes: F10.239 - Alcohol dependence with withdrawal, unspecified Status: Acute Plan: Quit drinking alcohol a day and a half prior to admission. Likely had a seizure at home. * CIWA protocol, escalated care to precedex drip now * Seizure precautions * Rally pack * his liver is so poor librium would be a concern as the half life is so long even under normal circumstances. he needed restraints as his actions were compromising his care and he was wandering the yang and perhaps trying to leave the hospital as well as stopping his FFP * will need intensive care until he starts to improve from his withdrawals. appreciate help of Assistant Community Manager as required * Serial ammonia levels along with lactulose to reduce hyperammonemia--to 99 this morning (2) Thrombocytopenia ICD Codes: D69.6 - Thrombocytopenia, unspecified Status: Acute Plan: Improving. Platelets on admission at 14 --> improved to 44 on 12/02. Secondary to splenic sequestration of platelets (and resultant splenomegaly) and partly due to alcohol associated marrow toxicity and marrow suppression due to his recent alcohol binge. Also has deranged coagulation profile 2/2 cirrhosis. * Hematology consulted and following recs * S/P 3units leuko-reduced platelets and 1unit FFP on 11/29 * Continue supportive transfusions to maintain platelet count >15,000 if he is not bleeding or > 40,000 if there are signs of bleeding * Consider FFP for management of overt bleeding and to replace proteins C and S. (3) Hyponatremia ICD Codes: E87.1 - Hypo-osmolality and hyponatremia Status: Acute Plan: Admission was 132. likely fluid overload from cirrhosis; 140 on 12/01 -- corrected * Continue to monitor (4) Alcoholic liver disease ICD Codes: K70.9 - Alcoholic liver disease, unspecified Status: Chronic Plan: Patient admits to drinking admitted by him a 12 pack of beer a day, his reports a case per day. ABC shows macrocytic anemia. AST greater than ALT on hepatic function panel. Ammonia level was elevated to 79. MELD score is 26-27 with a 19.6% estimated 3-month mortality * MELD score is very high especially considering his age. * Hepatitis A/B/C negative, STEFANY and Anti-smooth Ab negative; Anti-mitochondrial Ab pending * Lactulose 30 mL's PO q8h * Continue at home medications of furosemide and spironolactone. had to change the lasix to iv for now. * Restrict sodium to 2 g a day * discussed with Mr Dong how terrible his liver is and that this is life threatening. offered help in quitting alcohol * spoke to his 11/29 (5) Macrocytic anemia ICD Codes: D53.9 - Nutritional anemia, unspecified Status: Acute Plan: Most likely from his chronic alcoholism * Will continue to monitor * Rally pack as above (6) Hypertension ICD Codes: I10 - Essential (primary) hypertension Plan: * continue home medication of carvedilol when taking po * for now to avoid rebound tachycardia will give low dose iv metoprolol * Currently normotensive (7) COPD (chronic obstructive pulmonary disease) ICD Codes: J44.9 - Chronic obstructive pulmonary disease, unspecified Plan: * DuoNeb nebs as needed (8) FEN Status: Acute Plan: Fluids: started PO today, on iv maintenance. Electrolytes: monitor and replete as needed. on electrolyte protocol in [facility] Nutrition: heart-healthy diet if able to eat DVT Prophylaxis: Early ambulation. Bilateral SCDs. with multiple clotting abnormalities cannot have any heparin, etc GI Prophylaxis: Pantoprazole have to change to iv as he cannot take po Fever/pain management: Tylenol 650 mg po not to exceed 2000mg/day (Quinn Valdez MD R1) Problem Qualifiers (1) Alcohol withdrawal: Qualified Codes: F10.239 - Alcohol dependence with withdrawal, unspecified (2) Hypertension: Qualified Codes: I10 - Essential (primary) hypertension (3) COPD (chronic obstructive pulmonary disease): Qualified Codes: J44.9 - Chronic obstructive pulmonary disease, unspecified Quinn Valdez MD R1 Dec 02, 2017 15:53 Yoli Romero MD Dec 04, 2017 09:57
[2017-12-02] MEDS: REMOVE OLD PATCH T-DERMAL SCH (20:14)
[2017-12-03] VITALS (25 sets, daily range): BP systolic 72–138; BP diastolic 46–73; PULSE 87–239; RESP 23–65; TEMP 98–100.4; O2SAT 85–97
[2017-12-03] MEDS: LACTULOSE SYRUP 20 GM/30 ML CUP PO SCH ×3 (02:38→12:13)
[2017-12-03] MEDS: METOPROLOL TARTRATE 5 MG/5 ML VIAL IV PUSH SCH ×3 (02:39→08:42)
[2017-12-03] MEDS: INSULIN NovoLIN REGULAR SUPPLEMENTAL SCALE SQ SCH ×5 (04:00→15:52)
[2017-12-03] MEDS: PENTOXIFYLLINE 400 MG CONTROLLED RELEASE TAB PO SCH ×2 (05:13→14:48)
[2017-12-03] MEDS: RESP: ALBUTEROL 2.5 MG/IPRATROPIUM 0.5 MG NEB (PRN) NEB ×2 (05:55→07:44)
[2017-12-03] MEDS ORDERED: SOD PHOSPHATE/SOD BIPHOSPHATE (ADULT) ENEMA 133ML RECTAL ONE (08:30)
[2017-12-03] MEDS: SODIUM CHLORIDE 0.9% FLUSH 10 ML FLUSH IV FLUSH SCH (08:31)
[2017-12-03] MEDS: FUROSEMIDE 20 MG/2 ML VIAL IV PUSH SCH (08:32)
[2017-12-03] MEDS: MULTIVITAMINS/MINERALS THERAPEUTIC TAB PO SCH (08:32)
[2017-12-03] MEDS: FOLIC ACID 1 MG TAB PO SCH (08:32)
[2017-12-03] MEDS: SPIRONOLACTONE 25 MG TAB PO SCH (08:32)
[2017-12-03] MEDS: methylPREDNISolone SOD SUCC 125 MG/2 ML VIAL IV PUSH SCH (08:32)
--- NOTE | 2017-12-03 08:32 | RADRPT ---
EXAM DATE/TIME: 12/03/2017 08:00 [facility] COMPARISON: No previous studies available for comparison. INDICATIONS : Abdominal distension. MEDICAL HISTORY : None. SURGICAL HISTORY : Inguinal hernia repair. ENCOUNTER: Initial ACUITY: 4 - 6 days PAIN SCORE: 7/10 LOCATION: Right lower quadrant FINDINGS: Supine view of the abdomen was performed. Multiple dilated bowel loops are seen.. No abnormal masses , calcifications, or organomegaly is seen. The osseous structures are unremarkable. CONCLUSION: Multiple dilated bowel loops can be seen with ileus or obstruction. Ismael Gonzalez MD on December 03, 2017 at 8:28 Board Certified Radiologist. This report was verified electronically.
[2017-12-03] MEDS: RIFAXIMIN 550 MG TAB PO SCH (08:33)
[2017-12-03] MEDS: NICOTINE 7 MG/24 HR PATCH T-DERMAL SCH (08:33)
[2017-12-03] MEDS: THIAMINE HCL 100 MG TAB PO SCH (08:33)
[2017-12-03 08:36] LABS: ALT (GPT) 67 U/L (12-78); AST (GOT) 141 U/L (15-37); PHOSPHORUS 2.5 MG/DL (2.5-4.9)
[2017-12-03 08:39] LABS: ALBUMIN 2.7 GM/DL (3.4-5.0); BICARBONATE 18.8 MEQ/L (21.0-32.0); BLOOD UREA NITROGEN 50 MG/DL (7-18); CALCIUM 9.1 MG/DL (8.5-10.1); CHLORIDE 108 MEQ/L (98-107); GLOMERULAR FILTRATION RATE 31 ML/MIN (>89); GLUCOSE,RANDOM 176 MG/DL (74-106); MAGNESIUM 2.4 MG/DL (1.5-2.5); SODIUM (NA) 141 MEQ/L (136-145)
[2017-12-03 09:03] LABS: ALKALINE PHOSPHATASE 289 U/L (45-117); TOTAL PROTEIN 7.1 GM/DL (6.4-8.2)
[2017-12-03 09:17] LABS: TOTAL BILIRUBIN ADULT 37.8 MG/DL (0.2-1.0)
[2017-12-03] MEDS: SODIUM CHLOR 0.9% 1000 ML INJ 1,000 ML IV SCH ×2 (09:30→18:03)
[2017-12-03] MEDS ORDERED: SENNOSIDES SYRUP 8.8 MG/5 ML CUP PO SCH (09:30)
[2017-12-03] MEDS ORDERED: DOCUSATE SODIUM 100 MG/10 ML UDC PO SCH (09:30)
[2017-12-03] MEDS ORDERED: RESP: ALBUTEROL 2.5 MG/IPRATROPIUM 0.5 MG NEB (PRN) NEB (09:30)
--- NOTE | 2017-12-03 09:43 | HHI.CCPN ---
Subjective Remarks/Hospital Course Hospital Course: 42-year-old white male with alcoholic liver cirrhosis, HTN, and COPD presents after a possible seizure at home. Per chart review patient's reported that he got out of bed confused. He then clenched up his arms and started shaking. His helped him to the floor where he continued to be clenched and shaking and was not responding to her when she was talking to him. She then called 911. He seemed to come back to when the EMS arrived at the house. He states that he does not remember anything that happened from this morning. He was confused and tired. No achy muscles. Of note he quit drinking alcohol a day and a half prior to admission. He would drink a 12 pack of beer a day at minimum up to a case a day. He had previously quit alcohol but started up again in September when his mother . He then decided to quit cold turkey. Lately he has been feeling shaky, having blurry vision. He was admitted to medicine for with diagnosis of alcohol dependence when he developed severe alcohol withdrawal symptoms requiring to be transferred to ICU and started on Precedex drip. Subjective: 11/30: remains encephalopathic and intermittently severely agitated. RASS -3 or + 1. on Precedex infusion. ROS unobtainable due to mental status. 12/01 Patient remains encephalopathic on Precedex dip 1mic/kg/hr. Afebrile. 12/02 No events overnight. Patient is more awake and alert this morning. Remains on Precedex drip 1.2mics/kg/hr. Afebrile. 12/03 Patient is awake on Precedex 0.2mics. T:99.7. Renal function worse today with Cr:2.30 from 0.83 Objective Vital Signs Date Time Temp Pulse Resp B/P (MAP) Pulse Ox O2 Delivery O2 Flow Rate FiO2 12/03/17 07:45 94 Nasal Cannula 4.00 12/03/17 06:00 87 12/03/17 04:00 98.8 38 120/73 (89) Intake and Output 12/03/17 12/03/17 12/04/17 08:00 16:00 00:00 Intake Total 647 ml Output Total 800 ml Balance -153 ml Result Diagram: 12/02/17 0701 12/03/17 0803 Other Results Laboratory Tests Test 12/03/17 08:03 Blood Urea Nitrogen 50 MG/DL Creatinine 2.30 MG/DL Random Glucose 176 MG/DL Total Protein 7.1 GM/DL Albumin 2.7 GM/DL Calcium Level 9.1 MG/DL Phosphorus Level 2.5 MG/DL Magnesium Level 2.4 MG/DL Alkaline Phosphatase 289 U/L Aspartate Amino Transf (AST/SGOT) 141 U/L Alanine Aminotransferase (ALT/SGPT) 67 U/L Total Bilirubin 37.8 MG/DL Sodium Level 141 MEQ/L Potassium Level 3.6 MEQ/L Chloride Level 108 MEQ/L Carbon Dioxide Level 18.8 MEQ/L Anion Gap 14 MEQ/L Estimat Glomerular Filtration Rate 31 ML/MIN Ammonia 53 MCMOL/L Imaging Last Impressions Abdomen/Pelvis CT 12/03/17 0000 Signed Impressions: Service Date/Time: Sunday, December 03, 2017 11:36 - CONCLUSION: 1. There is pneumatosis colitis predominantly within the ascending colon suggesting necrotizing colitis possibly from ischemic bowel. Multiple dilated small bowel loops are also noted proximally. Ismael Gonzalez MD Abdomen X-Ray 12/03/17 0000 Signed Impressions: Service Date/Time: Sunday, December 03, 2017 08:00 - CONCLUSION: Multiple dilated bowel loops can be seen with ileus or obstruction. Ismael Gonazlez MD Abdomen Ultrasound 12/02/17 0000 Signed Impressions: Service Date/Time: Saturday, December 02, 2017 08:42 - CONCLUSION: 1. No free fluid identified. 2. Moderate splenomegaly. Azeem Hartman MD Head CT 11/28/17 0000 Signed Impressions: Service Date/Time: Tuesday, November 28, 2017 08:23 - CONCLUSION: No acute disease. Francesco Hernandze MD Chest X-Ray 11/28/17 0000 Signed Impressions: Service Date/Time: Tuesday, November 28, 2017 08:29 - CONCLUSION: Cardiomegaly. No acute pulmonary disease. Artur Magaña MD Objective Remarks GENERAL: Patient is lying in bed in NAD SKIN: Warm and dry. HEAD: Normocephalic. EYES: No scleral icterus. No injection or drainage. NECK: Supple, trachea midline. No JVD or lymphadenopathy. CARDIOVASCULAR: Regular rate and rhythm without murmurs, gallops, or rubs. RESPIRATORY: Breath sounds equal bilaterally. No accessory muscle use. GASTROINTESTINAL: Abdomen soft, non-tender,distended, hypoactive BS MUSCULOSKELETAL: No cyanosis, or edema. Neuro: Awake and alert A/P Assessment and Plan Assessment: 42yM with Alcoholic Cirrhosis and Acute Alcohol withdraw syndrome, Severe Agitated Delirium requiring continuous iv sedation for patient safety and to prevent seizures. Remains critically ill without improvement. Multiple attempts throughout the day to wean iv sedation were unsuccessful and patient continues to require high dose sedatives in an ICU setting to prevent acute worsening of his life-threatening agitated delirium and withdraw. remains critically ill. 1)Resp Insuff 2)Encephalopathy 3)Alcohol withdrawal 4)Cirrhosis of liver 5)Hyperbilirubinemia 6)Anemia, thrombocytopenia 7)Coagulopathy 2nd liver disease 8)Hx Asthma 9)Hx HTN Plan Neuro: Monitor neuro status Wean off Precedex drip CIWA protocol Thiamine folate and multivitamins Haldol for breakthrough agitation. Lactulose 30ml Q4, Rifaximin, Solumedrol 60mg daily. Ammonia level 53 from 99 Pulm: Continue with oxygen keep sat >92% CV: Monitor HR and BP keep MAP>65mmHg : Monitor renal function, I/O's, electrolytes replacement as needed D/c Lasix and Aldactone for worsening renal function. Cr: 2.30 from 0.83, UOP: 800ml in 24hrs. Consult Renal. Place on NS@84ml/ hr US abdomen: No ascites 11/29 CT abd/pelvis: No hydronephrosis ID: Start Levaquin/Flagyl. ID eval, check BC x 2sets .Monitor for signs of infections ( Fever, WBC) CXR 11/28: No acute disease Heme: Monitor CBC, coags Will give 2units FFP check INR, PT. GI: continue Protonix 40mg daily, keep NPO KUB this morning: Multiple dilated bowel loops can be seen with ileus or obstruction. STAT CT abd/pelvis: pneumatosis colitis predominantly within the ascending colon suggesting necrotizing colitis possibly from ischemic bowel. Multiple dilated small bowel loops are also noted proximally. Spoke to Dr. Salas re CT abdomen findings awaiting family's decision re surgery Fleet enema ordered by GI, continue with Lactulose, Rifaximin, add Colace, Senna NGT and rectal tube to suction per GI Endo: SSI to maintain Euglycemia GI prophylaxis- On Protonix 40mg daily DVT prophylaxis- SCD, not a a candidate for chemical AC prophylaxis due to thrombocytopenia with PLT count < 50 Palliative care eval to asses with goals of care Level 3 . Carla Rasmussen MD Dec 03, 2017 09:43
[2017-12-03] MEDS: PANTOPRAZOLE SODIUM 40 MG VIAL IV PUSH SCH (09:53)
[2017-12-03] MEDS: PHYTONADIONE 5 MG/SWFI 5 ML ORAL SYR PO SCH (09:54)
[2017-12-03 11:38] LABS: BASOPHIL # 0.1 TH/MM3 (0-0.2); BASOPHIL % 0.2 % (0.0-2.0); EOSINOPHIL % 0.1 % (0.0-4.0); HEMATOCRIT 44.4 % (39.0-51.0); HEMOGLOBIN 15.2 GM/DL (13.0-17.0); LYMPH % 4.6 % (9.0-44.0); LYMPHOCYTE # 1.2 TH/MM3 (1.0-4.8); MEAN CELL VOLUME 104.9 FL (80.0-100.0); MEAN CORPUSCULAR HEMOGLOBIN 35.9 PG (27.0-34.0); MEAN CORPUSCULAR HGB CONC 34.2 % (32.0-36.0); MEAN PLATELET VOLUME 10.4 FL (7.0-11.0); MONO % 16.2 % (0.0-8.0); MONOCYTE # 4.3 TH/MM3 (0-0.9); NEUT % 78.9 % (16.0-70.0); PLATELET COUNT 149 TH/MM3 (150-450); RED BLOOD COUNT 4.24 MIL/MM3 (4.50-5.90); RED CELL DISTRIBUTION WIDTH 24.1 % (11.6-17.2); WHITE BLOOD COUNT 26.6 TH/MM3 (4.0-11.0)
--- NOTE | 2017-12-03 12:06 | RADRPT ---
EXAM DATE/TIME: 12/03/2017 11:36 [facility] COMPARISON: No previous studies available for comparison. INDICATIONS : Abdominal distention, evaluate for obstruction. ORAL CONTRAST: No oral contrast ingested. RADIATION DOSE: 22.29 CTDIvol (mGy) MEDICAL HISTORY : Seizures. Hypertension. Gallbladder disease, cirrohsis SURGICAL HISTORY : Inguinal hernia repair. ENCOUNTER: Initial ACUITY: 1 day PAIN SCALE: 1/10 LOCATION: Bilateral lower quadrant TECHNIQUE: Volumetric scanning of the abdomen and pelvis was performed. Using automated exposure control and ad justment of the mA and/or kV according to patient size, radiation dose was kept as low as reasonably achievable to obtain optimal diagnostic quality images. DICOM format image data is available electro nically for review and comparison. FINDINGS: LOWER LUNGS: Bibasilar subsegmental atelectasis. LIVER: Homogeneous density without lesion. There is no dilation of the biliary tree. No calcified gallston es. SPLEEN: Normal size without lesion. PANCREAS: Within normal limits. KIDNEYS: Normal in size and shape. There is no mass, stone, or hydronephrosis. ADRENAL GLANDS: Within normal limits. VASCULAR: There is no aortic aneurysm. BOWEL/MESENTERY: Multiple dilated small bowel loops. There appears to be air within the wall of the ascending colon gonzalez ggesting pneumatosis colitis. There is also some air within main to the intestinal tract. Rectal tube noted. The SMA, celiac axis and JUAN FRANCISCO appear patent. ABDOMINAL WALL: Within normal limits. RETROPERITONEUM: There is no lymphadenopathy. BLADDER: No wall thickening or mass. REPRODUCTIVE: Within normal limits. INGUINAL: There is no lymphadenopathy or hernia. MUSCULOSKELETAL: Within normal limits for patient age. CONCLUSION: 1. There is pneumatosis colitis predominantly within the ascending colon suggesting necrotizing colit is possibly from ischemic bowel. Multiple dilated small bowel loops are also noted proximally. Ismael Gonzalez MD on December 03, 2017 at 11:52 Board Certified Radiologist. This report was verified electronically.
[2017-12-03] MEDS: LORazepam 2 MG/ML VIAL IV PUSH PRN (12:14)
[2017-12-03 12:22] LABS: ALBUMIN 2.6 GM/DL (3.4-5.0); ALT (GPT) 69 U/L (12-78); AST (GOT) 149 U/L (15-37); BICARBONATE 19.6 MEQ/L (21.0-32.0); BLOOD UREA NITROGEN 53 MG/DL (7-18); CALCIUM 9.1 MG/DL (8.5-10.1); CHLORIDE 107 MEQ/L (98-107); CREATININE 2.81 MG/DL (0.60-1.30); GLOMERULAR FILTRATION RATE 25 ML/MIN (>89); GLUCOSE,RANDOM 159 MG/DL (74-106); SODIUM (NA) 141 MEQ/L (136-145)
--- NOTE | 2017-12-03 12:28 | HHI.FPPN ---
Subjective Remarks Pt seen and examined this morning. Pt has been afebrile, currently off Precedex. Labs morning significant for an acute increase in creatinine from 0.83 yesterday to 2.3. Pt is alert but does not respond to questioning. Abdominal X ray this morning significant for multiple dilated bowel loops, concerning for ileus. Precedex drip has been discontinued. (Nereyda Villalta MD R3) Objective Vitals Vital Signs Date Time Temp Pulse Resp B/P (MAP) Pulse Ox O2 Delivery O2 Flow Rate FiO2 12/03/17 07:45 94 Nasal Cannula 4.00 12/03/17 06:00 87 12/03/17 04:00 90 12/03/17 04:00 98.8 92 38 120/73 (89) 95 12/03/17 02:00 92 12/03/17 00:00 99.7 91 37 107/58 (74) 95 12/03/17 00:00 91 12/02/17 22:00 90 12/02/17 20:35 94 Nasal Cannula 5.00 12/02/17 20:00 96.7 86 35 120/62 (81) 93 12/02/17 20:00 86 12/02/17 19:00 92 Nasal Cannula 2.00 12/02/17 18:00 91 30 128/92 (104) 93 12/02/17 17:00 87 25 124/75 (91) 93 12/02/17 16:00 98.7 90 33 127/73 (91) 96 12/02/17 15:00 90 29 113/73 (86) 95 12/02/17 14:00 90 33 107/65 (79) 93 12/02/17 13:00 87 26 116/74 (88) I/O 12/02/17 12/02/17 12/02/17 12/03/17 12/03/17 12/03/17 07:00 15:00 23:00 07:00 15:00 23:00 Intake Total 1150 ml 970 ml 647 ml Output Total 2000 ml 800 ml Balance -850 ml 970 ml -153 ml Intake Oral 750 ml 720 ml 400 ml IV Total 400 ml 250 ml 247 ml Output Urine Total 2000 ml 800 ml # Bowel Movements 0 0 0 (Nereyda Villalta MD R3) Result Diagram: 12/02/17 0701 12/03/17 1107 Objective Remarks GENERAL: Ill appearing, severely jaundiced. SKIN: No rashes or lesions. Cool and dry. Ecchymoses on left forearm and left upper back and petechiae and spider angioma HEAD: Atraumatic. Normocephalic. EYES: prominent scleral icterus. No injection or drainage. ENT: Nose without bleeding, purulent drainage or septal hematoma. Airway patent. Tongue with bilateral lacerations NECK: Trachea midline. No JVD or lymphadenopathy. Supple, nontender, no meningeal signs. CARDIOVASCULAR: Regular rate and rhythm without murmurs, gallops, or rubs. RESPIRATORY: Breath sounds equal bilaterally. No rales, or rhonchi. GASTROINTESTINAL: Abdomen soft, non-tender, distended. No hepato-splenomegaly, or palpable masses. No guarding. +Fluid wave. Striae and jaundice. MUSCULOSKELETAL: Extremities without clubbing, cyanosis, or edema. No joint tenderness, effusion, or edema noted. No calf tenderness. NEUROLOGICAL: Awake and alert, does not respond to verbal stimuli. (Nereyda Villalta MD R3) A/P Assessment and Plan Mr. Connors is a 42 yo white male with a PMH of cirrhosis, HTN, and COPD presenting with alcohol withdrawal. He is being admitted to our inpatient service and required transfer to [facility] for more intensive care. 12/01: goals today include: Real Estate Loan Officer weaning Precedex, restart lactulose PO if possible, if not, restart via NG tube, wean supplemental O2 as tolerated 12/02: pt still requiring Precedex 1.2mcg/kg/hr; however, has been cleared for thin liquids/soft diet by speech therapy and has started PO lactulose. supplemental O2 has been weaned. Pt still somewhat confused and prone to agitation. Discharge Planning Time frame unclear, patient with poor prognosis (Nereyda Villalta MD R3) Attending Attestation Patient seen and examined. Case reviewed and discussed with the resident team. Agree with plan of care as discussed with me and documented in the resident note. tried to call his but were unable to reach her. he is not a surgical candidate because of his terrible liver- he has few platelets, few clotting factors and even his INR is elevated. (Yoli Romero MD) Problem List: (1) Necrotizing colitis ICD Codes: A09 - Infectious gastroenteritis and colitis, unspecified Plan: Acute increase in white blood cell count from 5.4-26.6. CT suggestive of necrotizing colitis. Pt with overall poor prognosis. -Patient started on ertapenem IV, Levaquin, Flagyl -GI consulted, appreciate recommendations -Hold all laxatives for now -Gen. surgery consulted, appreciate recommendations. Pt high risk for surgery. Imaging: Abdomen/pelvis CT 12/03/17: There is pneumatosis colitis predominantly within the ascending colon suggesting necrotizing colitis possibly from ischemic bowel. Multiple dilated small bowel loops are also noted. (2) Alcohol withdrawal ICD Codes: F10.239 - Alcohol dependence with withdrawal, unspecified Status: Acute Plan: Last drink of alcohol a day and a half prior to admission. Likely had a seizure at home. * [facility] protocol * Seizure precautions * Rally pack * Ammonia decreased from 99-53. Lactulose has been discontinued. (3) Thrombocytopenia ICD Codes: D69.6 - Thrombocytopenia, unspecified Status: Acute Plan: Improving. Platelets on admission at 14 --> improved to 149 on 12/03, (? acute phase reactant). Secondary to splenic sequestration of platelets (and resultant splenomegaly) and partly due to alcohol associated marrow toxicity and marrow suppression due to his recent alcohol binge. Also has deranged coagulation profile 2/2 cirrhosis. * Hematology consulted and following recs * S/P 3units leuko-reduced platelets and 1unit FFP on 11/29 * Continue supportive transfusions to maintain platelet count >15,000 if he is not bleeding or > 40,000 if there are signs of bleeding * Consider FFP for management of overt bleeding and to replace proteins C and S. (4) Alcoholic liver disease ICD Codes: K70.9 - Alcoholic liver disease, unspecified Status: Chronic Plan: Patient admits to drinking admitted by him a 12 pack of beer a day, his reports a case per day. ABC shows macrocytic anemia. AST greater than ALT on hepatic function panel. Ammonia level was elevated to 79. MELD score is 26-27 with a 19.6% estimated 3-month mortality * MELD score is very high especially considering his age. * Hepatitis A/B/C negative, STEFANY negative, Anti-smooth Ab negative; Anti- mitochondrial Ab pending * Lactulose 30 mL's PO q8h * Continue at home medications of furosemide and spironolactone. had to change the lasix to iv for now. * Restrict sodium to 2 g a day (5) Macrocytic anemia ICD Codes: D53.9 - Nutritional anemia, unspecified Status: Acute Plan: Most likely from his chronic alcoholism * Will continue to monitor * Rally pack as above (6) Hypertension ICD Codes: I10 - Essential (primary) hypertension Plan: * continue home medication of carvedilol when taking po * Currently normotensive (7) COPD (chronic obstructive pulmonary disease) ICD Codes: J44.9 - Chronic obstructive pulmonary disease, unspecified Plan: * DuoNeb nebs as needed (8) FEN Status: Acute Plan: Fluids: IV fluids Electrolytes: monitor and replete as needed. on electrolyte protocol in [facility] Nutrition: heart-healthy diet if able to eat DVT Prophylaxis: Early ambulation. Bilateral SCDs. with multiple clotting abnormalities cannot have any heparin, etc GI Prophylaxis: Pantoprazole have to change to iv as he cannot take po Fever/pain management: Tylenol 650 mg po not to exceed 2000mg/day (Nereyda Villalta MD R3) Problem Qualifiers (1) Alcohol withdrawal: Qualified Codes: F10.239 - Alcohol dependence with withdrawal, unspecified (2) Hypertension: Qualified Codes: I10 - Essential (primary) hypertension (3) COPD (chronic obstructive pulmonary disease): Qualified Codes: J44.9 - Chronic obstructive pulmonary disease, unspecified Nereyda Villalta MD R3 Dec 03, 2017 12:28 Yoli Romero MD Dec 04, 2017 09:59
--- NOTE | 2017-12-03 12:29 | HHI.FPPN ---
Objective Vitals Vital Signs Date Time Temp Pulse Resp B/P (MAP) Pulse Ox O2 Delivery O2 Flow Rate FiO2 12/03/17 07:45 94 Nasal Cannula 4.00 12/03/17 06:00 87 12/03/17 04:00 90 12/03/17 04:00 98.8 92 38 120/73 (89) 95 12/03/17 02:00 92 12/03/17 00:00 99.7 91 37 107/58 (74) 95 12/03/17 00:00 91 12/02/17 22:00 90 12/02/17 20:35 94 Nasal Cannula 5.00 12/02/17 20:00 96.7 86 35 120/62 (81) 93 12/02/17 20:00 86 12/02/17 19:00 92 Nasal Cannula 2.00 12/02/17 18:00 91 30 128/92 (104) 93 12/02/17 17:00 87 25 124/75 (91) 93 12/02/17 16:00 98.7 90 33 127/73 (91) 96 12/02/17 15:00 90 29 113/73 (86) 95 12/02/17 14:00 90 33 107/65 (79) 93 12/02/17 13:00 87 26 116/74 (88) I/O 12/02/17 12/02/17 12/02/17 12/03/17 12/03/17 12/03/17 07:00 15:00 23:00 07:00 15:00 23:00 Intake Total 1150 ml 970 ml 647 ml Output Total 2000 ml 800 ml Balance -850 ml 970 ml -153 ml Intake Oral 750 ml 720 ml 400 ml IV Total 400 ml 250 ml 247 ml Output Urine Total 2000 ml 800 ml # Bowel Movements 0 0 0 Result Diagram: 12/02/17 0701 12/03/17 1107 Objective Remarks GENERAL: This is a well-nourished, well-developed very jaundiced patient currently obtunded on precedex drip at 25.5mg SKIN: No rashes or lesions. Cool and dry. Ecchymoses on left forearm and left upper back. plus petechiae and spider angioma HEAD: Atraumatic. Normocephalic. EYES: prominent scleral icterus. No injection or drainage. ENT: Nose without bleeding, purulent drainage or septal hematoma. Airway patent. Tongue with bilateral lacerations NECK: Trachea midline. No JVD or lymphadenopathy. Supple, nontender, no meningeal signs. CARDIOVASCULAR: Regular rate and rhythm without murmurs, gallops, or rubs. RESPIRATORY: Breath sounds equal bilaterally. No rales, or rhonchi. GASTROINTESTINAL: Abdomen soft, non-tender, distended. No hepato-splenomegaly, or palpable masses. No guarding. +Fluid wave. Striae and jaundice. MUSCULOSKELETAL: Extremities without clubbing, cyanosis, or edema. No joint tenderness, effusion, or edema noted. No calf tenderness. NEUROLOGICAL: Awake and alert. Motor and sensory grossly within normal limits. Normal speech. sedated so no tremors now A/P Assessment and Plan Mr. Connors is a 42 yo white male with a PMH of cirrhosis, HTN, and COPD presenting with alcohol withdrawal. He is being admitted to our inpatient service and required [place] [facility] [place] care. 12/01: goals today include: Correctional Supervisor weaning Precedex, restart lactulose PO if possible, if not, restart via NG tube, wean supplemental O2 as tolerated 12/02: pt still requiring Precedex 1.2mcg/kg/hr; however, has been cleared for thin liquids/soft diet by speech therapy and has started PO lactulose. supplemental O2 has been weaned. Pt still somewhat confused and prone to agitation. Problem List: (1) Alcohol withdrawal ICD Codes: F10.239 - Alcohol dependence with withdrawal, unspecified Status: Acute Plan: Quit drinking alcohol a day and a half prior to admission. Likely had a seizure at home. * [facility] protocol, escalated care to precedex drip now * Seizure precautions * Rally pack * his liver is so poor librium would be a concern as the half life is so long even under normal circumstances. he needed restraints as his actions were compromising his care and he was wandering the yang and perhaps trying to leave the hospital as well as stopping his FFP * will need intensive care until he starts to improve from his withdrawals. appreciate help of Correctional Supervisor as required * Serial ammonia levels along with lactulose to reduce hyperammonemia--to 99 this morning (2) Thrombocytopenia ICD Codes: D69.6 - Thrombocytopenia, unspecified Status: Acute Plan: Improving. Platelets on admission at 14 --> improved to 44 on 1/9. Secondary to splenic sequestration of platelets (and resultant splenomegaly) and partly due to alcohol associated marrow toxicity and marrow suppression due to his recent alcohol binge. Also has deranged coagulation profile 2/2 cirrhosis. * Hematology consulted and following recs * S/P 3units leuko-reduced platelets and 1unit FFP on 11/29 * Continue supportive transfusions to maintain platelet count >15,000 if he is not bleeding or > 40,000 if there are signs of bleeding * Consider FFP for management of overt bleeding and to replace proteins C and S. (3) Hyponatremia ICD Codes: E87.1 - Hypo-osmolality and hyponatremia Status: Acute Plan: Admission was 132. likely fluid overload from cirrhosis; 140 on 12/01 -- corrected * Continue to monitor (4) Alcoholic liver disease ICD Codes: K70.9 - Alcoholic liver disease, unspecified Status: Chronic Plan: Patient admits to drinking admitted by him a 12 pack of beer a day, his reports a case per day. ABC shows macrocytic anemia. AST greater than ALT on hepatic function panel. Ammonia level was elevated to 79. MELD score is 26-27 with a 19.6% estimated 3-month mortality * MELD score is very high especially considering his age. * Hepatitis A/B/C negative, STEFANY and Anti-smooth Ab negative; Anti-mitochondrial Ab pending * Lactulose 30 mL's PO q8h * Continue at home medications of furosemide and spironolactone. had to change the lasix to iv for now. * Restrict sodium to 2 g a day * discussed with Mr Dong how terrible his liver is and that this is life threatening. offered help in quitting alcohol * spoke to his 11/29 (5) Macrocytic anemia ICD Codes: D53.9 - Nutritional anemia, unspecified Status: Acute Plan: Most likely from his chronic alcoholism * Will continue to monitor * Rally pack as above (6) Hypertension ICD Codes: I10 - Essential (primary) hypertension Plan: * continue home medication of carvedilol when taking po * for now to avoid rebound tachycardia will give low dose iv metoprolol * Currently normotensive (7) COPD (chronic obstructive pulmonary disease) ICD Codes: J44.9 - Chronic obstructive pulmonary disease, unspecified Plan: * DuoNeb nebs as needed (8) FEN Status: Acute Plan: Fluids: started PO today, on iv maintenance. Electrolytes: monitor and replete as needed. on electrolyte protocol [place] [facility] Nutrition: heart-healthy diet if able to eat DVT Prophylaxis: Early ambulation. Bilateral SCDs. with multiple clotting abnormalities cannot have any heparin, etc GI Prophylaxis: Pantoprazole have to change to iv as he cannot take po Fever/pain management: Tylenol 650 mg po not to exceed 2000mg/day Problem Qualifiers (1) Alcohol withdrawal: Qualified Codes: F10.239 - Alcohol dependence with withdrawal, unspecified (2) Hypertension: Qualified Codes: I10 - Essential (primary) hypertension (3) COPD (chronic obstructive pulmonary disease): Qualified Codes: J44.9 - Chronic obstructive pulmonary disease, unspecified Nereyda Villalta MD R3 Dec 03, 2017 12:29
[2017-12-03] MEDS ORDERED: metroNIDAZOLE 500 MG INJ 100 ML IV SCH ×2 (12:30→14:00)
[2017-12-03 12:36] LABS: BANDS 19 % (0-6); LYMPHOCYTES 2 % (9-44); MONOCYTES 13 % (0-8); NEUTROPHIL # MANUAL DIFF 22.6 TH/MM3 (1.8-7.7); POLYS (SEG NEUTROPHILS) 66 % (16-70); TARGET CELLS 2+ (NORMAL)
--- NOTE | 2017-12-03 12:41 | HHI.GIFU ---
Subjective Remarks Pt resting in bed. Ngt insertion attempts unsuccessful, has rectal tube to LIWS. Distended. (Geno Cardenas) Objective Vitals I&O Vital Signs Date Time Temp Pulse Resp B/P (MAP) Pulse Ox O2 Delivery O2 Flow Rate FiO2 12/03/17 07:45 94 Nasal Cannula 4.00 12/03/17 06:00 87 12/03/17 04:00 90 12/03/17 04:00 98.8 92 38 120/73 (89) 95 12/03/17 02:00 92 12/03/17 00:00 99.7 91 37 107/58 (74) 95 12/03/17 00:00 91 12/02/17 22:00 90 12/02/17 20:35 94 Nasal Cannula 5.00 12/02/17 20:00 96.7 86 35 120/62 (81) 93 12/02/17 20:00 86 12/02/17 19:00 92 Nasal Cannula 2.00 12/02/17 18:00 91 30 128/92 (104) 93 12/02/17 17:00 87 25 124/75 (91) 93 12/02/17 16:00 98.7 90 33 127/73 (91) 96 12/02/17 15:00 90 29 113/73 (86) 95 12/02/17 14:00 90 33 107/65 (79) 93 12/02/17 13:00 87 26 116/74 (88) I/O 12/02/17 12/02/17 12/02/17 12/03/17 12/03/17 12/03/17 07:00 15:00 23:00 07:00 15:00 23:00 Intake Total 1150 ml 970 ml 647 ml Output Total 2000 ml 800 ml Balance -850 ml 970 ml -153 ml Intake Oral 750 ml 720 ml 400 ml IV Total 400 ml 250 ml 247 ml Output Urine Total 2000 ml 800 ml # Bowel Movements 0 0 0 Laboratory Laboratory Tests Test 12/03/17 08:03 12/03/17 11:07 Blood Urea Nitrogen 50 Creatinine 2.30 2.81 Random Glucose 176 159 Total Protein 7.1 Albumin 2.7 2.6 Calcium Level 9.1 9.1 Phosphorus Level 2.5 Magnesium Level 2.4 Alkaline Phosphatase 289 Aspartate Amino Transf (AST/SGOT) 141 149 Alanine Aminotransferase (ALT/SGPT) 67 69 Total Bilirubin 37.8 Sodium Level 141 Potassium Level 3.6 Chloride Level 108 107 Carbon Dioxide Level 18.8 Anion Gap 14 Estimat Glomerular Filtration Rate 31 25 Ammonia 53 Date/Time Source Procedure Growth Status 12/02/17 05:30 Urine Catheterized Urine Urine Culture - Preliminary NO GROWTH IN 24 HOURS. Resulted Imaging Last Impressions Abdomen/Pelvis CT 12/03/17 0000 Signed Impressions: Service Date/Time: Sunday, December 03, 2017 11:36 - CONCLUSION: 1. There is pneumatosis colitis predominantly within the ascending colon suggesting necrotizing colitis possibly from ischemic bowel. Multiple dilated small bowel loops are also noted proximally. Ismael Gonzalez MD Abdomen X-Ray 12/03/17 0000 Signed Impressions: Service Date/Time: Sunday, December 03, 2017 08:00 - CONCLUSION: Multiple dilated bowel loops can be seen with ileus or obstruction. Ismael Gonzalez MD Abdomen Ultrasound 12/02/17 0000 Signed Impressions: Service Date/Time: Saturday, December 02, 2017 08:42 - CONCLUSION: 1. No free fluid identified. 2. Moderate splenomegaly. Azeem Hartman MD Head CT 11/28/17 0000 Signed Impressions: Service Date/Time: Tuesday, November 28, 2017 08:23 - CONCLUSION: No acute disease. Francesco Hernandez MD Chest X-Ray 11/28/17 0000 Signed Impressions: Service Date/Time: Tuesday, November 28, 2017 08:29 - CONCLUSION: Cardiomegaly. No acute pulmonary disease. Artur Magaña MD Physical Exam HEENT: normocephalic; atraumatic;icteric CHEST: tachypneic CARDIAC: tachy ABDOMEN: Semifirm, distended, bowel sounds faint EXTREMITIES: No clubbing, cyanosis, or edema. soft restraints SKIN: Normal; no rash; significant jaundice. ecchymoses extremities SAMPLE WEAVER: lethargic (Geno Cardenas) Assessment and Plan Plan ASSESSMENT - jaundice, elev LFTs - likely ETOH hepatitis. acute on chronic. hx heavy drinking. DF 49. MELD 25. NH decreased to 55. 11/29/17- CT abd shows cirrhosis, portal HTN, cholelithiasis. US shows mild prominence CBD 8mm hep panel negative, AFP 2.5, STEFANY neg. ETOH withdrawal. worsening bili and significantly worsened creatinine, ? hepatorenal - abd distention - worsening, today firmer. KUB 12/03/17 ileus vs obstruction, CT 12/03/17 peumatosis colitis, suggestion necortizing colitis poss from ischemic bowel, mult dilated small bowel loops proximally - anemia - macrocytic. no report bleeding. - thrombocytopenia - hem/onc following, getting therapeutic PLT transfusions, FFP - ETOH withdrawal, hepatic encephalopathy per primary - worsening respiratory distress, getting intubated PLAN - needs NGT or OGT - continue rectal tube LIWS - hold stimulants, lactulose - STAT GS consult- high risk for surgery - consider palliative care consult - IV flagyl, levaquin - cont IV solumedrol - pentoxifylline - xifaxan - monitor labs - supportive care Pt seen by myself and Dr Fairbanks and this note is written on her behalf (Geno Cardenas) Physician Comments patient seen early am, more distended discussed with nurse and perianesthesia nurse, no bm since admission ngt could not be placed in the past abdominal x ray was ordered-discussed with nurse-ct abdomen/pelvis ordered, ngt was attempted but could not be placed, patient vomited patient labs showing worsening liver and renal function, most likely hepatorenal syndrome ct abdomen/pelvis noted , ischemic colitis , possible phlegmonous colitis in a cirrhotic patient discussed with perianesthesia nurse and surgeon very high risk for surgery , high mortality rate due to multiorgan failure , especially advanced liver failure , CHILD class C recommend palliative consult, consider dnr, supportive care agree with infectious disease consult -for now coverage with levaquin and Flagyl and Ertapenem 1 gm daily/ until seen by ID, dosages to be adjusted to renal function by pharmacy hold Lactulose and all other laxatives for now Most likely he will not survive this hospitalization (Marlin Fairbanks MD) Geno Cardenas Dec 03, 2017 12:41 Marlin Fairbanks MD Dec 03, 2017 13:26
[2017-12-03 12:42] LABS: ALKALINE PHOSPHATASE 305 U/L (45-117)
[2017-12-03] MEDS ORDERED: ETOMIDATE 40 MG/20 ML VIAL ONE (12:42)
[2017-12-03 12:43] LABS: TOTAL BILIRUBIN ADULT 39.5 MG/DL (0.2-1.0); TOTAL PROTEIN 7.2 GM/DL (6.4-8.2)
[2017-12-03] MEDS ORDERED: PROPOFOL 500 MG/50 ML INJ 50 ML ONE (12:43)
[2017-12-03] MEDS ORDERED: LEVOFLOXACIN 500 MG PREMIX INJ 100 ML IV ONE (13:00)
--- NOTE | 2017-12-03 13:02 | PD.CONS ---
HPI Service General Surgery Consult Requested By Dr. Yoder Reason for Consult Pneumatosis coli Primary Care Physician No Primary Care Physician History of Present Illness 42 yo M with h/o ETOH abuse with cirrhosis and end stage liver disease presented in ETOH withdrawal and found to have severe thrombocytopenia, coagulopathy. He required multiple transfusions of platelets and FFP as well as oral vitamin K. Overnight he had significant worsening of lab work, with increase of WBC from 5,000 to 27,000 with 19% bands. Cr went from normal to 2.8. Bilirubin has been increasing from 18 on admission to 39 today. Admission labs consistent with child class C cirrhosis. KUB this am showed dilated loops and bowel, and CT a/p was ordered which revealed pneumatosis coli primarily in ascending colon as well as dilated small bowel loops. I was called by Dr. Fairbanks and Dr. Yoder regarding this patient's CT scan findings and overall clinical situation. He is being emergently intubated by Dr. Yoder. Review of Systems ROS Limitations: Clinical Condition, Intubated Past Family Social History Past Medical History HTN COPD Past Surgical History Right inguinal hernia repair Reported Medications Reported Meds & Active Scripts Active Reported Pantoprazole (Pantoprazole Sodium) 40 Mg Tab 40 Mg PO DAILY Furosemide 20 Mg Tab 20 Mg PO BID Carvedilol 6.25 Mg Tab 6.25 Mg PO BID Spironolactone 25 Mg Tab 25 Mg PO DAILY Klor-Con 10 (Potassium Chloride) 10 Meq Tab 10 Meq PO DAILY Ursodiol 300 Mg Cap 300 Mg PO BID Allergies: Coded Allergies: No Known Allergies (Verified , 03/25/16) Active Ordered Medications Current Medications Medications (Trade) Dose Ordered Sig/Jeremy Route Start Time Stop Time Status Last Admin (NS Flush) 2 ml UNSCH PRN IV FLUSH 11/28/17 11:00 12/01/17 17:20 (NS Flush) 2 ml BID IV FLUSH 11/28/17 21:00 12/03/17 08:31 (Vitamin B1) 100 mg DAILY PO 11/28/17 11:00 12/03/17 08:33 (Romazicon Inj) 0.2 mg Q1M PRN IV PUSH 11/28/17 11:00 (Ativan) 1 mg Q4H PRN PO 11/28/17 11:00 12/03/17 08:33 (Ativan Inj) 1 mg Q4H PRN IV PUSH 11/28/17 11:00 12/03/17 12:14 (Ativan) 2 mg Q2H PRN PO 11/28/17 11:00 (Ativan Inj) 2 mg Q2H PRN IV PUSH 11/28/17 11:00 12/02/17 22:19 (Ativan Inj) 2 mg Q1H PRN IV PUSH 11/28/17 11:00 11/29/17 18:45 (Ativan Inj) 2 mg Q15M PRN IV PUSH 11/28/17 11:00 11/30/17 00:22 (Coreg) 6.25 mg BID PO 11/28/17 21:00 Future Hold 11/29/17 21:12 (Tylenol) 650 mg Q6H PRN PO 11/28/17 18:45 (Habitrol 7 Mg Patch.24 Hr) 1 patch DAILY T-DERMAL 11/29/17 09:00 12/03/17 08:33 Miscellaneous Information 1 HS T-DERMAL 11/29/17 21:00 12/02/17 20:14 (Librium) 25 mg BID PO 11/29/17 14:45 Future Hold 11/29/17 21:12 (Benadryl) 25 mg Q4H PRN PO 11/29/17 14:45 (SoluMEDROL INJ) 60 mg DAILY IV PUSH 11/29/17 16:00 Future Hold 12/03/17 08:32 (TRENtal SR) 400 mg Q8HR PO 11/29/17 16:00 12/03/17 05:13 (Xifaxan) 550 mg BID PO 11/29/17 21:00 12/03/17 08:33 (Mag-Ox) 800 mg UNSCH PRN PO 11/30/17 08:45 (Protonix Inj) 40 mg Q24H IV PUSH 11/30/17 10:00 12/03/17 09:53 Dexmedetomidine HCl 1000 mcg/ Sodium Chloride 250 ml @ 5.15 mls/hr TITRATE PRN IV 11/30/17 10:15 12/02/17 22:55 (Haldol Inj) 5 mg Q4H PRN IV PUSH 11/30/17 20:45 12/02/17 10:30 (D50w (Vial) Inj) 50 ml UNSCH PRN IV PUSH 12/01/17 09:45 (Glucagon Inj) 1 mg UNSCH PRN OTHER 12/01/17 09:45 (NovoLIN R SUPPLEMENTAL SCALE) 1 Q4H SQ 12/01/17 20:00 12/03/17 08:31 (Lactulose Liq) 30 ml Q4H PO 12/02/17 11:00 Future Hold 12/03/17 12:13 (Mephyton Liq) 10 mg DAILY PO 12/02/17 09:30 12/06/17 08:59 12/03/17 09:54 (Duoneb Neb) 1 ampule Q4HR NEB NEB 12/03/17 12:00 (Duoneb Neb) 1 ampule Q2HR NEB PRN NEB 12/03/17 09:30 Sodium Chloride 1,000 ml @ 84 mls/hr [id number] IV 12/03/17 09:30 12/03/17 09:30 (Senna Liq) 8.8 mg DAILY PO 12/03/17 09:30 Future Hold 12/03/17 12:13 (Colace Liq) 100 mg Q12HR PO 12/03/17 09:30 Future Hold 12/03/17 12:13 Metronidazole 100 ml @ 100 mls/hr Q6H IV 12/03/17 14:00 Levofloxacin/ Dextrose 100 ml @ 100 mls/hr ONCE ONCE IV 12/03/17 13:00 12/03/17 13:59 Levofloxacin/ Dextrose 50 ml @ 100 mls/hr Q24H IV 12/04/17 13:00 Family History Noncontributory Social History H/o ETOH abuse Physical Exam Vital Signs Vital Signs Date Time Temp Pulse Resp B/P (MAP) Pulse Ox O2 Delivery O2 Flow Rate FiO2 12/03/17 07:45 94 Nasal Cannula 4.00 12/03/17 06:00 87 12/03/17 04:00 90 12/03/17 04:00 98.8 92 38 120/73 (89) 95 12/03/17 02:00 92 12/03/17 00:00 99.7 91 37 107/58 (74) 95 12/03/17 00:00 91 12/02/17 22:00 90 12/02/17 20:35 94 Nasal Cannula 5.00 12/02/17 20:00 96.7 86 35 120/62 (81) 93 12/02/17 20:00 86 12/02/17 19:00 92 Nasal Cannula 2.00 12/02/17 18:00 91 30 128/92 (104) 93 12/02/17 17:00 87 25 124/75 (91) 93 12/02/17 16:00 98.7 90 33 127/73 (91) 96 12/02/17 15:00 90 29 113/73 (86) 95 12/02/17 14:00 90 33 107/65 (79) 93 Physical Exam GENERAL: S/p intubation. Unresponsive. HEAD: Normocephalic. Atraumatic. EYES: + scleral icterus. ENT: Orotracheally intubated. NECK: Trachea midline. CHEST: Ventilated CARDIOVASCULAR: Regular rate and rhythm. ABDOMEN: Distended. Soft. Unable to assess tenderness. SKIN: Severely jaundiced. Laboratory Laboratory Tests Test 12/03/17 08:03 12/03/17 11:07 Blood Urea Nitrogen 50 53 Creatinine 2.30 2.81 Random Glucose 176 159 Total Protein 7.1 7.2 Albumin 2.7 2.6 Calcium Level 9.1 9.1 Phosphorus Level 2.5 Magnesium Level 2.4 Alkaline Phosphatase 289 305 Aspartate Amino Transf (AST/SGOT) 141 149 Alanine Aminotransferase (ALT/SGPT) 67 69 Total Bilirubin 37.8 39.5 Sodium Level 141 141 Potassium Level 3.6 3.5 Chloride Level 108 107 Carbon Dioxide Level 18.8 19.6 Anion Gap 14 14 Estimat Glomerular Filtration Rate 31 25 Ammonia 53 White Blood Count 26.6 Red Blood Count 4.24 Hemoglobin 15.2 Hematocrit 44.4 Mean Corpuscular Volume 104.9 Mean Corpuscular Hemoglobin 35.9 Mean Corpuscular Hemoglobin Concent 34.2 Red Cell Distribution Width 24.1 Platelet Count 149 Mean Platelet Volume 10.4 Neutrophils (%) (Auto) 78.9 Lymphocytes (%) (Auto) 4.6 Monocytes (%) (Auto) 16.2 Eosinophils (%) (Auto) 0.1 Basophils (%) (Auto) 0.2 Neutrophils # (Auto) 21.0 Lymphocytes # (Auto) 1.2 Monocytes # (Auto) 4.3 Eosinophils # (Auto) 0.0 Basophils # (Auto) 0.1 CBC Comment AUTO DIFF Differential Total Cells Counted 100 Neutrophils % (Manual) 66 Band Neutrophils % 19 Lymphocytes % 2 Monocytes % 13 Neutrophils # (Manual) 22.6 Differential Comment FINAL DIFF MANUAL Platelet Estimate NORMAL Platelet Morphology Comment NORMAL Target Cells 2+ Date/Time Source Procedure Growth Status 12/02/17 05:30 Urine Catheterized Urine Urine Culture - Preliminary NO GROWTH IN 24 HOURS. Resulted Result Diagram: 12/03/17 1107 12/03/17 1107 Imaging Last Impressions Chest X-Ray 12/03/17 0000 Signed Impressions: Service Date/Time: Sunday, December 03, 2017 17:43 - CONCLUSION: Central lokesh in good position. ET tube remains in good position.. Imtiaz Mendez MD Abdomen/Pelvis CT 12/03/17 0000 Signed Impressions: Service Date/Time: Sunday, December 03, 2017 11:36 - CONCLUSION: 1. There is pneumatosis colitis predominantly within the ascending colon suggesting necrotizing colitis possibly from ischemic bowel. Multiple dilated small bowel loops are also noted proximally. Ismael Gonzalez MD Abdomen X-Ray 12/03/17 0000 Signed Impressions: Service Date/Time: Sunday, December 03, 2017 08:00 - CONCLUSION: Multiple dilated bowel loops can be seen with ileus or obstruction. Ismael Gonzalez MD Abdomen Ultrasound 12/02/17 0000 Signed Impressions: Service Date/Time: Saturday, December 02, 2017 08:42 - CONCLUSION: 1. No free fluid identified. 2. Moderate splenomegaly. Azeem Hartman MD Head CT 11/28/17 0000 Signed Impressions: Service Date/Time: Tuesday, November 28, 2017 08:23 - CONCLUSION: No acute disease. Francesco Hernandez MD Assessment and Plan Assessment and Plan 42 yo M with end stage cirrhosis child class C, coagulopathy, thrombocytopenia, bilirubin of 40, with apparent ischemic colon. His mortality rate is extremely high with or without surgery. I discussed the case in detail with Dr. Fairbanks and Dr. Yoder. I am very reluctant to offer any operation as I feel that unfortunately he has no chance of recovery. He was initially seen by me at midday and by evening was requiring increased O2 requirements and initiation of pressors. I discussed the case at midday with the patient's aunt who is a nurse as the patient's was unavailable at that time. This evening I discussed the case with them both as well as more family members. I have strongly recommended that any operative intervention would be futile and answered all questions I could. The patients family understands his situation and does desire continued aggressive medical care for now but not operative intervention. It sounds like that are starting to think about his wishes, comfort care, possible DNR, etc. Discussed Condition With Dr. Beba Fairbanks Bedside nurse Patient's aunt Cris and later his , aunt, and further family members Josue,Karel SALGUERO Dec 03, 2017 13:02
--- NOTE | 2017-12-03 13:22 | PD.CONS ---
HPI Service Nephrology Consult Requested By Dr. Rasmussen Reason for Consult ARF Primary Care Physician No Primary Care Physician History of Present Illness 42 Year old male with cirrhosis of liver, who was admitted on Nov 29 due to possible seizures, he woke up and has been in AMS, Clenching his teeth, at hospital he required ICU admission Intubation, he has possible necrosis of bowels, ischemic bowels, septic shock, ARF creatinine has been rising from 0.8 to 2.81. urine out put dropped and getting volume with NS 84 cc/hr. Review of Systems ROS Limitations: Clinical Condition Past Family Social History Allergies: Coded Allergies: No Known Allergies (Verified , 03/25/16) Past Medical History Asthma HTN Alcoholic liver Cirrhosis Past Surgical History Right inguinal hernia repair Reported Medications Reported Meds & Active Scripts Active Reported Pantoprazole (Pantoprazole Sodium) 40 Mg Tab 40 Mg PO DAILY Furosemide 20 Mg Tab 20 Mg PO BID Carvedilol 6.25 Mg Tab 6.25 Mg PO BID Spironolactone 25 Mg Tab 25 Mg PO DAILY Klor-Con 10 (Potassium Chloride) 10 Meq Tab 10 Meq PO DAILY Ursodiol 300 Mg Cap 300 Mg PO BID Active Ordered Medications Current Medications Medications (Trade) Dose Ordered Sig/Jeremy Route Start Time Stop Time Status Last Admin (NS Flush) 2 ml UNSCH PRN IV FLUSH 11/28/17 11:00 12/01/17 17:20 (NS Flush) 2 ml BID IV FLUSH 11/28/17 21:00 12/03/17 08:31 (Vitamin B1) 100 mg DAILY PO 11/28/17 11:00 12/03/17 08:33 (Romazicon Inj) 0.2 mg Q1M PRN IV PUSH 11/28/17 11:00 (Ativan) 1 mg Q4H PRN PO 11/28/17 11:00 12/03/17 08:33 (Ativan Inj) 1 mg Q4H PRN IV PUSH 11/28/17 11:00 12/03/17 12:14 (Ativan) 2 mg Q2H PRN PO 11/28/17 11:00 (Ativan Inj) 2 mg Q2H PRN IV PUSH 11/28/17 11:00 12/02/17 22:19 (Ativan Inj) 2 mg Q1H PRN IV PUSH 11/28/17 11:00 11/29/17 18:45 (Ativan Inj) 2 mg Q15M PRN IV PUSH 11/28/17 11:00 11/30/17 00:22 (Coreg) 6.25 mg BID PO 11/28/17 21:00 Future Hold 11/29/17 21:12 (Tylenol) 650 mg Q6H PRN PO 11/28/17 18:45 (Habitrol 7 Mg Patch.24 Hr) 1 patch DAILY T-DERMAL 11/29/17 09:00 12/03/17 08:33 Miscellaneous Information 1 HS T-DERMAL 11/29/17 21:00 12/02/17 20:14 (Librium) 25 mg BID PO 11/29/17 14:45 Future Hold 11/29/17 21:12 (Benadryl) 25 mg Q4H PRN PO 11/29/17 14:45 (SoluMEDROL INJ) 60 mg DAILY IV PUSH 11/29/17 16:00 Future Hold 12/03/17 08:32 (TRENtal SR) 400 mg Q8HR PO 11/29/17 16:00 12/03/17 05:13 (Xifaxan) 550 mg BID PO 11/29/17 21:00 12/03/17 08:33 (Mag-Ox) 800 mg UNSCH PRN PO 11/30/17 08:45 (Protonix Inj) 40 mg Q24H IV PUSH 11/30/17 10:00 12/03/17 09:53 Dexmedetomidine HCl 1000 mcg/ Sodium Chloride 250 ml @ 5.15 mls/hr TITRATE PRN IV 11/30/17 10:15 12/02/17 22:55 (Haldol Inj) 5 mg Q4H PRN IV PUSH 11/30/17 20:45 12/02/17 10:30 (D50w (Vial) Inj) 50 ml UNSCH PRN IV PUSH 12/01/17 09:45 (Glucagon Inj) 1 mg UNSCH PRN OTHER 12/01/17 09:45 (NovoLIN R SUPPLEMENTAL SCALE) 1 Q4H SQ 12/01/17 20:00 12/03/17 08:31 (Lactulose Liq) 30 ml Q4H PO 12/02/17 11:00 Future Hold 12/03/17 12:13 (Mephyton Liq) 10 mg DAILY PO 12/02/17 09:30 12/06/17 08:59 12/03/17 09:54 (Duoneb Neb) 1 ampule Q4HR NEB NEB 12/03/17 12:00 (Duoneb Neb) 1 ampule Q2HR NEB PRN NEB 12/03/17 09:30 Sodium Chloride 1,000 ml @ 84 mls/hr [id number] IV 12/03/17 09:30 12/03/17 09:30 (Senna Liq) 8.8 mg DAILY PO 12/03/17 09:30 Future Hold 12/03/17 12:13 (Colace Liq) 100 mg Q12HR PO 12/03/17 09:30 Future Hold 12/03/17 12:13 Metronidazole 100 ml @ 100 mls/hr Q6H IV 12/03/17 14:00 Levofloxacin/ Dextrose 100 ml @ 100 mls/hr ONCE ONCE IV 12/03/17 13:00 12/03/17 13:59 Levofloxacin/ Dextrose 50 ml @ 100 mls/hr Q24H IV 12/04/17 13:00 Family History noncontributory Social History drinks ETOH 12 Beer a day quit recently, Cigarette smoking pin past Physical Exam Vital Signs Vital Signs Date Time Temp Pulse Resp B/P (MAP) Pulse Ox O2 Delivery O2 Flow Rate FiO2 12/03/17 13:03 90 100 12/03/17 07:45 94 Nasal Cannula 4.00 12/03/17 06:00 87 12/03/17 04:00 90 12/03/17 04:00 98.8 92 38 120/73 (89) 95 12/03/17 02:00 92 12/03/17 00:00 99.7 91 37 107/58 (74) 95 12/03/17 00:00 91 12/02/17 22:00 90 12/02/17 20:35 94 Nasal Cannula 5.00 12/02/17 20:00 96.7 86 35 120/62 (81) 93 12/02/17 20:00 86 12/02/17 19:00 92 Nasal Cannula 2.00 12/02/17 18:00 91 30 128/92 (104) 93 12/02/17 17:00 87 25 124/75 (91) 93 12/02/17 16:00 98.7 90 33 127/73 (91) 96 12/02/17 15:00 90 29 113/73 (86) 95 12/02/17 14:00 90 33 107/65 (79) 93 Physical Exam GENERAL: Well-nourished, well-developed patient.ill appearing male on ventilator SKIN: cold and dry. HEAD: Normocephalic. EYES: positive scleral icterus. No injection or drainage. NECK: Supple, intubated CARDIOVASCULAR: Tachycardia RESPIRATORY: Breath sounds harsh BS GASTROINTESTINAL: Abdomen tender, distended. Absent bowel sounds. EXTREMITIES: No cyanosis, or edema. NEUROLOGICAL: obtunded Laboratory Laboratory Tests Test 12/03/17 08:03 12/03/17 11:07 Blood Urea Nitrogen 50 53 Creatinine 2.30 2.81 Random Glucose 176 159 Total Protein 7.1 7.2 Albumin 2.7 2.6 Calcium Level 9.1 9.1 Phosphorus Level 2.5 Magnesium Level 2.4 Alkaline Phosphatase 289 305 Aspartate Amino Transf (AST/SGOT) 141 149 Alanine Aminotransferase (ALT/SGPT) 67 69 Total Bilirubin 37.8 39.5 Sodium Level 141 141 Potassium Level 3.6 3.5 Chloride Level 108 107 Carbon Dioxide Level 18.8 19.6 Anion Gap 14 14 Estimat Glomerular Filtration Rate 31 25 Ammonia 53 White Blood Count 26.6 Red Blood Count 4.24 Hemoglobin 15.2 Hematocrit 44.4 Mean Corpuscular Volume 104.9 Mean Corpuscular Hemoglobin 35.9 Mean Corpuscular Hemoglobin Concent 34.2 Red Cell Distribution Width 24.1 Platelet Count 149 Mean Platelet Volume 10.4 Neutrophils (%) (Auto) 78.9 Lymphocytes (%) (Auto) 4.6 Monocytes (%) (Auto) 16.2 Eosinophils (%) (Auto) 0.1 Basophils (%) (Auto) 0.2 Neutrophils # (Auto) 21.0 Lymphocytes # (Auto) 1.2 Monocytes # (Auto) 4.3 Eosinophils # (Auto) 0.0 Basophils # (Auto) 0.1 CBC Comment AUTO DIFF Differential Total Cells Counted 100 Neutrophils % (Manual) 66 Band Neutrophils % 19 Lymphocytes % 2 Monocytes % 13 Neutrophils # (Manual) 22.6 Differential Comment FINAL DIFF MANUAL Platelet Estimate NORMAL Platelet Morphology Comment NORMAL Target Cells 2+ Date/Time Source Procedure Growth Status 12/02/17 05:30 Urine Catheterized Urine Urine Culture - Preliminary NO GROWTH IN 24 HOURS. Resulted Result Diagram: 12/03/17 1107 12/03/17 1107 Imaging Last Impressions Abdomen/Pelvis CT 12/03/17 0000 Signed Impressions: Service Date/Time: Sunday, December 03, 2017 11:36 - CONCLUSION: 1. There is pneumatosis colitis predominantly within the ascending colon suggesting necrotizing colitis possibly from ischemic bowel. Multiple dilated small bowel loops are also noted proximally. Ismael Gonzalez MD Abdomen X-Ray 12/03/17 0000 Signed Impressions: Service Date/Time: Sunday, December 03, 2017 08:00 - CONCLUSION: Multiple dilated bowel loops can be seen with ileus or obstruction. Ismael Gonzalez MD Abdomen Ultrasound 12/02/17 0000 Signed Impressions: Service Date/Time: Saturday, December 02, 2017 08:42 - CONCLUSION: 1. No free fluid identified. 2. Moderate splenomegaly. Azeem Hartman MD Head CT 11/28/17 0000 Signed Impressions: Service Date/Time: Tuesday, November 28, 2017 08:23 - CONCLUSION: No acute disease. Francesco Hernandez MD Chest X-Ray 11/28/17 0000 Signed Impressions: Service Date/Time: Tuesday, November 28, 2017 08:29 - CONCLUSION: Cardiomegaly. No acute pulmonary disease. Artur Magaña MD Assessment and Plan Problem List: (1) Acute renal failure ICD Codes: N17.9 - Acute kidney failure, unspecified Status: Acute Plan: He has ischemic necrosis of bowels leading to septic shock, multi organ failure per surgery mortality very high surgical risk very high he is on Vent doing very poorly I agree with other members, his mortality is high and currently unstable. continue with IVF follow renal functions. I have changed IVF D5 with3 amps of bicarb at 150 cc/hr profound acidosis might do emergent surgery d/w staff (2) Cirrhosis of liver ICD Codes: K74.60 - Unspecified cirrhosis of liver Plan: ESLD with complications as above (3) Necrosis of intestine ICD Codes: K55.069 - Acute infarction of intestine, part and extent unspecified Plan: no surgery planned (4) Thrombocytopenia ICD Codes: D69.6 - Thrombocytopenia, unspecified Status: Acute Plan: cirrhosis (5) Coagulopathy ICD Codes: D68.9 - Coagulation defect, unspecified Plan: due to cirrhosis Problem Qualifiers (1) Cirrhosis of liver: Janak Castrejon MD Dec 03, 2017 13:21
[2017-12-03] MEDS ORDERED: fentaNYL DRIP 250 ML IV PRN (13:30)
[2017-12-03] MEDS: RESP: ALBUTEROL 2.5 MG/IPRATROPIUM 0.5 MG NEB (SCH) NEB ×3 (13:41→19:43)
[2017-12-03] MEDS ORDERED: PROPOFOL 1000 MG/100 ML INJ 100 ML IV PRN (13:45)
--- NOTE | 2017-12-03 14:44 | RADRPT ---
EXAM DATE/TIME: 12/03/2017 13:39 [facility] COMPARISON: CHEST SINGLE AP, November 28, 2017, 8:29. INDICATIONS : Post intubation MEDICAL HISTORY : Thyroid disease. Seizures. Hypertension. Gall bladder disease. Hernia. GERD. Liver disease. ETOH. SURGICAL HISTORY : Right inguinal hernia. Orthopaedic surgery ENCOUNTER: Subsequent ACUITY: 1 week PAIN SCORE: Non-responsive. LOCATION: Bilateral chest FINDINGS: ETT at the level of the clavicles. NGT coursing beyond the GE junction with tip omitted from the imag e. Mild diffuse interstitial prominence exaggerated by low lung volumes. Cardiomediastinal contours a re stable. Remainder of the exam is unchanged. CONCLUSION: 1. ETT in good position. NGT beyond the GE junction. 2. Low lung volumes without significant interval change.. Franky Terrell MD on December 03, 2017 at 14:41 Board Certified Radiologist. This report was verified electronically.
[2017-12-03] MEDS ORDERED: ERTAPENEM 1,000 MG/NS 100 ML IV SCH ×2 (15:00)
[2017-12-03 15:49] LABS: INTERNATIONAL NORMALIZED RATIO 1.6 RATIO; PROTHROMBIN TIME - PATIENT 16.1 SEC (9.8-11.6)
[2017-12-03] MEDS ORDERED: SODIUM BICARBONATE 8.4% INJ 50 MEQ/50 ML SYR IV PUSH ONE (17:00)
[2017-12-03] MEDS ORDERED: SODIUM CHLOR 0.9% 1000 ML INJ 1,000 ML IV ONE (17:00)
[2017-12-03] MEDS ORDERED: PHENYLEPHRINE 40 MG in D5W 500 ML IV PRN (17:30)
[2017-12-03] MEDS ORDERED: TERBUTALINE INJ 1 MG/ML AMP SQ PRN ×2 (17:30→17:45)
--- NOTE | 2017-12-03 17:31 | PD.CONS ---
Consult Service Palliative Care Consult Requested By Dr. Yoder . Primary Care Physician No Primary Care Physician Reason for Consultation a. To assist with evaluation and management of symptoms including: Pain, dyspnea b. To assist medical decision maker(s) with: better understanding of current medical conditions; weighing benefits/burdens of medical treatment options; making medical treatment decisions. HPI History of Present Illness This is a 42-year-old male with a long history of alcohol and tobacco use since his teens. He quit drinking after her hospitalization in March 2016 but resumed when his mother became ill in October 2016. At that time he had some binge drinking episodes but had since resumed a fairly stable drinking habit of drinking between 12 and 24 beers daily. He was admitted to the emergency room after he decided to quit drinking abruptly and had a seizure at home, witnessed by his . On admission he was alert and oriented 3. The following day he developed worsening withdrawal symptoms and was transferred to the ICU and started on a Precedex drip. He remained agitated and remained in ICU. Today he developed worsening respiratory failure and required intubation. At this evaluation he is breathing over the vent, tachypneic, 100% FiO2. Heart rate is in the 130s and blood pressure is low at 80/43. Clinical course: * Radiology: Chest x-ray shows cardiomegaly otherwise no acute disease. Abdominal ultrasound showed no free fluid with moderate splenomegaly. Abdominal x-ray showed multiple dilated bowel loops ileus versus obstruction. Abdominal pelvis CT showed pneumatosis colitis predominantly within the ascending colon suggesting necrotizing colitis possibly from ischemic bowel. Multiple dilated small bowel loops are also noted proximally. * Laboratory: WBC shows a sharp uptake to 26.6 today from 5.4 yesterday. Hemoglobin 15.2, hematocrit 44.4, platelets 149, up from 44 on 12/02. He is auto anticoagulated with an INR of 1.6. ABG pH 7.15, PCO2 48, PO2 174, HCO3 16, base excess -11.6 on 100% FiO2. * Microbiology: Blood cultures and urine cultures negative 1 day This is a significantly jaundiced thin male lying in bed, intubated and sedated. He is hypotensive and tachycardic. His abdomen is distended. He has a rectal tube to suction per GI. Attempt to place NG tube was made, however patient vomited and tube was unable to be placed. He currently has an OG tube, placed once he was intubated. Family is at bedside. Discussed with his who wishes to proceed with surgery although she is told that he has an extremely high chance of mortality with surgery, and she feels that due to his young age and the fact that his is a certainty without surgery that she is willing to go forward with all aggressive interventions. The patient's aunt is at bedside and agrees with her plan of care. Dr. Salas saw them earlier and is supposed to come back later today for the family's decision on surgery. . Function/Cognitive Trajectory He had quit drinking from March to October 2016, however resumed heavy drinking when his mother was diagnosed with leukemia and admitted to [facility] where she subsequently passed in October. After that time he drank heavily until this past week when he decided to quit cold turkey and subsequently had a seizure. Imaging studies are showing cirrhosis, he is jaundiced with distended abdomen and elevated INR. He is showing signs of end-stage liver disease, child class C. His meld score is 25. His states that he had been a very negative personality likely with an underlying anxiety disorder. . Review of Systems ROS Limitations: Clinical Condition, Intubated, Unresponsive (Patient is nonverbal and unable to provide their own ROS. 10 part ROS taken as best as possible from medical record and available family.) Past Family Social History Coded Allergies: No Known Allergies (Verified , 03/25/16) Past Medical History etoh abuse HTN COPD cirrhosis Asthma GERD . Past Surgical History right inguinal hernia repair . Reported Medications Reported Meds & Active Scripts Active Reported Pantoprazole (Pantoprazole Sodium) 40 Mg Tab 40 Mg PO DAILY Furosemide 20 Mg Tab 20 Mg PO BID Carvedilol 6.25 Mg Tab 6.25 Mg PO BID Spironolactone 25 Mg Tab 25 Mg PO DAILY Klor-Con 10 (Potassium Chloride) 10 Meq Tab 10 Meq PO DAILY Ursodiol 300 Mg Cap 300 Mg PO BID . Current Medications Medications (Trade) Dose Ordered Sig/Jeremy Route Start Time Stop Time Status Last Admin (NS Flush) 2 ml UNSCH PRN IV FLUSH 11/28/17 11:00 12/01/17 17:20 (NS Flush) 2 ml BID IV FLUSH 11/28/17 21:00 12/03/17 08:31 (Vitamin B1) 100 mg DAILY PO 11/28/17 11:00 12/03/17 08:33 (Romazicon Inj) 0.2 mg Q1M PRN IV PUSH 11/28/17 11:00 (Ativan) 1 mg Q4H PRN PO 11/28/17 11:00 12/03/17 08:33 (Ativan Inj) 1 mg Q4H PRN IV PUSH 11/28/17 11:00 12/03/17 12:14 (Ativan) 2 mg Q2H PRN PO 11/28/17 11:00 (Ativan Inj) 2 mg Q2H PRN IV PUSH 11/28/17 11:00 12/02/17 22:19 (Ativan Inj) 2 mg Q1H PRN IV PUSH 11/28/17 11:00 11/29/17 18:45 (Ativan Inj) 2 mg Q15M PRN IV PUSH 11/28/17 11:00 11/30/17 00:22 (Coreg) 6.25 mg BID PO 11/28/17 21:00 Future Hold 11/29/17 21:12 (Tylenol) 650 mg Q6H PRN PO 11/28/17 18:45 (Habitrol 7 Mg Patch.24 Hr) 1 patch DAILY T-DERMAL 11/29/17 09:00 12/03/17 08:33 Miscellaneous Information 1 HS T-DERMAL 11/29/17 21:00 12/02/17 20:14 (Librium) 25 mg BID PO 11/29/17 14:45 Future Hold 11/29/17 21:12 (Benadryl) 25 mg Q4H PRN PO 11/29/17 14:45 (SoluMEDROL INJ) 60 mg DAILY IV PUSH 11/29/17 16:00 Future Hold 12/03/17 08:32 (TRENtal SR) 400 mg Q8HR PO 11/29/17 16:00 12/03/17 14:48 (Xifaxan) 550 mg BID PO 11/29/17 21:00 12/03/17 08:33 (Mag-Ox) 800 mg UNSCH PRN PO 11/30/17 08:45 (Protonix Inj) 40 mg Q24H IV PUSH 11/30/17 10:00 12/03/17 09:53 Dexmedetomidine HCl 1000 mcg/ Sodium Chloride 250 ml @ 5.15 mls/hr TITRATE PRN IV 11/30/17 10:15 12/02/17 22:55 (Haldol Inj) 5 mg Q4H PRN IV PUSH 11/30/17 20:45 12/02/17 10:30 (D50w (Vial) Inj) 50 ml UNSCH PRN IV PUSH 12/01/17 09:45 (Glucagon Inj) 1 mg UNSCH PRN OTHER 12/01/17 09:45 (Lactulose Liq) 30 ml Q4H PO 12/02/17 11:00 Future Hold 12/03/17 12:13 (Mephyton Liq) 10 mg DAILY PO 12/02/17 09:30 12/06/17 08:59 12/03/17 09:54 (Duoneb Neb) 1 ampule Q4HR NEB NEB 12/03/17 12:00 12/03/17 16:25 (Duoneb Neb) 1 ampule Q2HR NEB PRN NEB 12/03/17 09:30 Sodium Chloride 1,000 ml @ 84 mls/hr [id number] IV 12/03/17 09:30 12/03/17 09:30 (Senna Liq) 8.8 mg DAILY PO 12/03/17 09:30 Future Hold 12/03/17 12:13 (Colace Liq) 100 mg Q12HR PO 12/03/17 09:30 Future Hold 12/03/17 12:13 Metronidazole 100 ml @ 100 mls/hr Q6H IV 12/03/17 14:00 12/03/17 14:41 Fentanyl Citrate 250 ml @ 5 mls/hr TITRATE PRN IV 12/03/17 13:30 12/03/17 13:33 Propofol 100 ml @ 3.03 mls/hr TITRATE PRN IV 12/03/17 13:45 12/03/17 13:58 Ertapenem 1000 mg/ Sodium Chloride 100 ml @ 200 mls/hr Q24H IV 12/03/17 15:00 12/03/17 15:52 (NovoLIN R SUPPLEMENTAL SCALE) 1 Q4HR SQ 12/03/17 20:00 . Family History Mother of leukemia October 2016. . Substance Use Tobacco: Smoked heavily, 2-3 packs per day from his teenage years, quit several years ago. Alcohol: Drank between 12-24 beers daily since his teenage years. Prescription med abuse: No history of prescription med abuse. Illicits: No recent use of illicit drugs. . Psychosocial History He was born in [place] and moved around these [facility] extensively after his parents were . He was never in the . He obtained his GED and worked in [employer] and most recently was a [employer]er. He enjoys target shooting, fishing and video games. He has been with his for over 20 years. . Spiritual/Cultural Factors Not important to him. 9. Living Will: Never completed Health Care Surrogate: Never completed Durable Power of Stopper Grinder: Never completed Family/friends goals: Wish to pursue all aggressive measures at this time. . Physical Exam Vital Signs Date Time Temp Pulse Resp B/P (MAP) Pulse Ox O2 Delivery O2 Flow Rate FiO2 12/03/17 16:26 95 100 12/03/17 14:00 123 37 80/46 (57) 94 12/03/17 14:00 123 12/03/17 13:03 90 100 12/03/17 13:00 100 12/03/17 13:00 122 34 138/65 (89) 87 12/03/17 12:00 98.0 119 62 106/58 (74) 95 12/03/17 12:00 119 12/03/17 11:00 117 45 118/70 (86) 92 12/03/17 11:00 92 Partial Non-Rebreather 15.00 12/03/17 10:00 113 23 112/69 (83) 93 12/03/17 10:00 113 12/03/17 09:00 113 65 108/58 (75) 85 12/03/17 08:00 98.3 96 55 107/59 (75) 89 12/03/17 08:00 96 12/03/17 07:45 94 Nasal Cannula 4.00 12/03/17 07:00 93 Nasal Cannula 2.00 12/03/17 07:00 94 63 113/64 (80) 93 12/03/17 06:00 87 12/03/17 04:00 90 12/03/17 04:00 98.8 92 38 120/73 (89) 95 12/03/17 02:00 92 12/03/17 00:00 99.7 91 37 107/58 (74) 95 12/03/17 00:00 91 12/02/17 22:00 90 12/02/17 20:35 94 Nasal Cannula 5.00 12/02/17 20:00 96.7 86 35 120/62 (81) 93 12/02/17 20:00 86 12/02/17 19:00 92 Nasal Cannula 2.00 12/02/17 18:00 91 30 128/92 (104) 93 12/02/17 17:00 87 25 124/75 (91) 93 12/03/17 12/04/17 19:00 07:00 Intake Total 100 ml Balance 100 ml IV Total 100 ml Exam CONSTITUTIONAL/GENERAL: This is a thin, jaundiced middle-aged male, intubated, sedated, tachypneic, tachycardic.. TUBES/LINES/DRAINS: ETT, Burns, rectal tube, PIV right forearm, PIV right antecubital, PIV left forearm SKIN: Jaundiced, no rashes, or lesions. Ecchymoses on upper extremities. No wounds seen anteriorly. Skin temperature appropriate. Not diaphoretic. HEAD: Atraumatic. Normocephalic. EYES: Pupils equal and round and reactive. Scleral icterus. No injection or drainage. Fundi not examined. ENT: Nose without bleeding or purulent drainage. Throat without visible erythema , exudates, masses, or lesions. NECK: Trachea midline. Supple. No palpable thyroid enlargement or nodularity. CARDIOVASCULAR: Tachycardic rate, regular rhythm, no murmur appreciated, no rub no gallop. Diminished peripheral pulses RESPIRATORY/CHEST: Tachypneic, scattered wheezes, diminished breath sounds. GASTROINTESTINAL: Abdomen distended, tight, hypoactive bowel sounds. GENITOURINARY: Without palpable bladder distension. Burns catheter in place. MUSCULOSKELETAL: Extremities without clubbing, cyanosis, or edema. No mottling or clubbing. NEUROLOGICAL: Intubated, sedated. PSYCHIATRIC: Sedated. . Diagnostic Tests Laboratory Laboratory Tests Test 11/30/17 18:19 12/01/17 04:53 12/01/17 12:09 12/02/17 05:30 White Blood Count 2.8 TH/MM3 (4.0-11.0) 4.3 TH/MM3 (4.0-11.0) Red Blood Count 3.28 MIL/MM3 (4.50-5.90) 3.41 MIL/MM3 (4.50-5.90) Hemoglobin 12.0 GM/DL (13.0-17.0) 12.2 GM/DL (13.0-17.0) Hematocrit 33.8 % (39.0-51.0) 34.9 % (39.0-51.0) Mean Corpuscular Volume 102.9 FL (80.0-100.0) 102.4 FL (80.0-100.0) Mean Corpuscular Hemoglobin 36.5 PG (27.0-34.0) 35.7 PG (27.0-34.0) Mean Corpuscular Hemoglobin Concent 35.5 % (32.0-36.0) 34.8 % (32.0-36.0) Red Cell Distribution Width 21.6 % (11.6-17.2) 21.8 % (11.6-17.2) Platelet Count 41 TH/MM3 (150-450) 33 TH/MM3 (150-450) Mean Platelet Volume 9.4 FL (7.0-11.0) 9.4 FL (7.0-11.0) Blood Urea Nitrogen 20 MG/DL (7-18) Creatinine 0.81 MG/DL (0.60-1.30) Random Glucose 122 MG/DL (74-106) Total Protein 6.5 GM/DL (6.4-8.2) Albumin 2.4 GM/DL (3.4-5.0) Calcium Level 8.0 MG/DL (8.5-10.1) Alkaline Phosphatase 269 U/L (45-117) Aspartate Amino Transf (AST/SGOT) 110 U/L (15-37) Alanine Aminotransferase (ALT/SGPT) 32 U/L (12-78) Total Bilirubin 25.8 MG/DL (0.2-1.0) Direct Bilirubin 20.2 MG/DL (0.0-0.2) Sodium Level 140 MEQ/L (136-145) Potassium Level 4.0 MEQ/L (3.5-5.1) Chloride Level 107 MEQ/L (98-107) Carbon Dioxide Level 23.0 MEQ/L (21.0-32.0) Anion Gap 10 MEQ/L (5-15) Estimat Glomerular Filtration Rate 105 ML/MIN (>89) Indirect Bilirubin 5.6 MG/DL (0.0-0.8) Ammonia 73 MCMOL/L (11-32) Urine Color DARK-YELLOW (YELLW/STRAW) Urine Turbidity HAZY (CLEAR) Urine pH 6.5 (5.0-8.5) Urine Specific [place] 1.014 (1.002-1.035) Urine Protein NEG mg/dL (NEG-TRACE) Urine Glucose (UA) NEG mg/dL (NEG) Urine Ketones NEG mg/dL (NEG) Urine Occult Blood NEG (NEG) Urine Nitrite NEG (NEG) Urine Bilirubin LARGE (NEG) Urine Urobilinogen LESS THAN 2.0 MG/DL (LESS Urine Leukocyte Esterase NEG (NEG) Urine RBC LESS THAN 1 /hpf (0-3) Urine WBC 2 /hpf (0-5) Urine Squamous Epithelial Cells 1 /hpf (0-5) Urine Amorphous Sediment RARE Urine Bacteria RARE /hpf (NONE) Urine Mucus FEW /lpf (OCC) Microscopic Urinalysis Comment CATH-CULTURE IND Test 12/02/17 07:01 12/02/17 07:27 12/03/17 08:03 12/03/17 11:07 White Blood Count 5.4 TH/MM3 (4.0-11.0) 26.6 TH/MM3 (4.0-11.0) Red Blood Count 3.28 MIL/MM3 (4.50-5.90) 4.24 MIL/MM3 (4.50-5.90) Hemoglobin 12.1 GM/DL (13.0-17.0) 15.2 GM/DL (13.0-17.0) Hematocrit 34.1 % (39.0-51.0) 44.4 % (39.0-51.0) Mean Corpuscular Volume 104.1 FL (80.0-100.0) 104.9 FL (80.0-100.0) Mean Corpuscular Hemoglobin 36.9 PG (27.0-34.0) 35.9 PG (27.0-34.0) Mean Corpuscular Hemoglobin Concent 35.4 % (32.0-36.0) 34.2 % (32.0-36.0) Red Cell Distribution Width 22.5 % (11.6-17.2) 24.1 % (11.6-17.2) Platelet Count 44 TH/MM3 (150-450) 149 TH/MM3 (150-450) Mean Platelet Volume 10.3 FL (7.0-11.0) 10.4 FL (7.0-11.0) CBC Comment AUTO DIFF AUTO DIFF Differential Total Cells Counted 100 100 Neutrophils % (Manual) 79 % (16-70) 66 % (16-70) Band Neutrophils % 4 % (0-6) 19 % (0-6) Lymphocytes % 1 % (9-44) 2 % (9-44) Monocytes % 15 % (0-8) 13 % (0-8) Neutrophils # (Manual) 4.5 TH/MM3 (1.8-7.7) 22.6 TH/MM3 (1.8-7.7) Myelocytes 1 % (0-0) Differential Comment FINAL DIFF MANUAL FINAL DIFF MANUAL Platelet Estimate LOW (NORMAL) NORMAL (NORMAL) Platelet Morphology Comment ENLARGED (NORMAL) NORMAL (NORMAL) Target Cells 2+ (NORMAL) 2+ (NORMAL) Blood Urea Nitrogen 25 MG/DL (7-18) 50 MG/DL (7-18) 53 MG/DL (7-18) Creatinine 0.83 MG/DL (0.60-1.30) 2.30 MG/DL (0.60-1.30) 2.81 MG/DL (0.60-1.30) Random Glucose 151 MG/DL (74-106) 176 MG/DL (74-106) 159 MG/DL (74-106) Total Protein 6.6 GM/DL (6.4-8.2) 7.1 GM/DL (6.4-8.2) 7.2 GM/DL (6.4-8.2) Albumin 2.4 GM/DL (3.4-5.0) 2.7 GM/DL (3.4-5.0) 2.6 GM/DL (3.4-5.0) Calcium Level 8.3 MG/DL (8.5-10.1) 9.1 MG/DL (8.5-10.1) 9.1 MG/DL (8.5-10.1) Alkaline Phosphatase 257 U/L (45-117) 289 U/L (45-117) 305 U/L (45-117) Aspartate Amino Transf (AST/SGOT) 112 U/L (15-37) 141 U/L (15-37) 149 U/L (15-37) Alanine Aminotransferase (ALT/SGPT) 42 U/L (12-78) 67 U/L (12-78) 69 U/L (12-78) Total Bilirubin 29.1 MG/DL (0.2-1.0) 37.8 MG/DL (0.2-1.0) 39.5 MG/DL (0.2-1.0) Sodium Level 142 MEQ/L (136-145) 141 MEQ/L (136-145) 141 MEQ/L (136-145) Potassium Level 3.4 MEQ/L (3.5-5.1) 3.6 MEQ/L (3.5-5.1) 3.5 MEQ/L (3.5-5.1) Chloride Level 109 MEQ/L (98-107) 108 MEQ/L (98-107) 107 MEQ/L (98-107) Carbon Dioxide Level 22.8 MEQ/L (21.0-32.0) 18.8 MEQ/L (21.0-32.0) 19.6 MEQ/L (21.0-32.0) Anion Gap 10 MEQ/L (5-15) 14 MEQ/L (5-15) 14 MEQ/L (5-15) Estimat Glomerular Filtration Rate 102 ML/MIN (>89) 31 ML/MIN (>89) 25 ML/MIN (>89) Ammonia 99 MCMOL/L (11-32) 53 MCMOL/L (11-32) Phosphorus Level 2.5 MG/DL (2.5-4.9) Magnesium Level 2.4 MG/DL (1.5-2.5) Neutrophils (%) (Auto) 78.9 % (16.0-70.0) Lymphocytes (%) (Auto) 4.6 % (9.0-44.0) Monocytes (%) (Auto) 16.2 % (0.0-8.0) Eosinophils (%) (Auto) 0.1 % (0.0-4.0) Basophils (%) (Auto) 0.2 % (0.0-2.0) Neutrophils # (Auto) 21.0 TH/MM3 (1.8-7.7) Lymphocytes # (Auto) 1.2 TH/MM3 (1.0-4.8) Monocytes # (Auto) 4.3 TH/MM3 (0-0.9) Eosinophils # (Auto) 0.0 TH/MM3 (0-0.4) Basophils # (Auto) 0.1 TH/MM3 (0-0.2) Test 12/03/17 14:27 12/03/17 14:45 Prothrombin Time 16.1 SEC (9.8-11.6) Prothromb Time International Ratio 1.6 RATIO Blood Gas Puncture Site RT RADIAL Blood Gas Patient Temperature 98.6 Blood Gas HCO3 16 mmol/L (22-26) Blood Gas Base Excess -11.6 mmol/L (-2-2) Blood Gas Oxygen Saturation 96 % (90-100) Arterial Blood pH 7.15 (7.380-7.420) Arterial Blood Partial Pressure CO2 48 mmHg (38-42) Arterial Blood Partial Pressure O2 174 mmHg (61-120) Arterial Blood Oxygen Content 21.3 Vol % (12.0-20.0) Arterial Blood Carboxyhemoglobin 0.8 % (0-4) Arterial Blood Methemoglobin 0.9 % (0-2) Blood Gas Hemoglobin 15.6 G/DL (12.0-16.0) Oxygen Delivery Device VENTILATOR Blood Gas Ventilator Setting Blood Gas Inspired Oxygen 100 % Result Diagram: 12/03/17 1107 12/03/17 1107 Microbiology Microbiology Date/Time Source Procedure Growth Status 12/03/17 14:30 Blood Peripheral Aerobic Blood Culture Pending Received 12/03/17 14:30 Blood Peripheral Anaerobic Blood Culture Pending Received 12/03/17 14:27 Blood Peripheral Aerobic Blood Culture Pending Received 12/03/17 14:27 Blood Peripheral Anaerobic Blood Culture Pending Received 12/02/17 05:30 Urine Catheterized Urine Urine Culture - Preliminary NO GROWTH IN 24 HOURS. Resulted Imaging Last Impressions Chest X-Ray 12/03/17 0000 Signed Impressions: Service Date/Time: Sunday, December 03, 2017 13:39 - CONCLUSION: 1. ETT in good position. NGT beyond the GE junction. 2. Low lung volumes without significant interval change.. Franky Terrell MD Abdomen/Pelvis CT 12/03/17 0000 Signed Impressions: Service Date/Time: Sunday, December 03, 2017 11:36 - CONCLUSION: 1. There is pneumatosis colitis predominantly within the ascending colon suggesting necrotizing colitis possibly from ischemic bowel. Multiple dilated small bowel loops are also noted proximally. Ismael Gonzalez MD Abdomen X-Ray 12/03/17 0000 Signed Impressions: Service Date/Time: Sunday, December 03, 2017 08:00 - CONCLUSION: Multiple dilated bowel loops can be seen with ileus or obstruction. Ismael Gonzalez MD Abdomen Ultrasound 12/02/17 0000 Signed Impressions: Service Date/Time: Saturday, December 02, 2017 08:42 - CONCLUSION: 1. No free fluid identified. 2. Moderate splenomegaly. Azeem Hartman MD Head CT 11/28/17 0000 Signed Impressions: Service Date/Time: Tuesday, November 28, 2017 08:23 - CONCLUSION: No acute disease. Francesco Hernandez MD Procedures 12/03/17: Intubation . Patient/Family Conference Present at Family Conference: Spoke with his , aunt, niece and niece's boyfriend at bedside. Discussed patient's clinical condition, history and specialist opinions. is very distressed and is aware that he is critically ill. We discussed CODE STATUS and she wishes FULL CODE and wishes to pursue surgery. She is aware of his extremely high risk of mortality with surgery but states that she has been told that without surgery he will certainly and is willing to take the chance on surgery. Palliative care purpose and function were discussed and contact information provided with planned follow-up tomorrow. . Family Conference Time (mins): 45 Family Conference Location: Bedside Issues Discussed: * Palliative care role, purpose, approach * Additional medical, psychosocial, and spiritual history * Patients general health, functional status, and cognitive changes in the months leading up to the current hospitalization * Patient/family understanding of the current medical problems * Patient/family understanding of prognosis * Patients goals of care as best understood from advance directives and/or conversations and/or values * Current medical treatment options and benefits/burdens of those options * Likely scenarios comparing ongoing aggressive care with a transition to comfort measures only * Questions answered to the best of my ability * Palliative care contact information provided Assessment and Plan Disease Oriented Problem List: (1) Hyperbilirubinemia (2) Hepatosplenomegaly (3) Alcoholic liver disease (4) Thrombocytopenia (5) Alcohol withdrawal (6) COPD (chronic obstructive pulmonary disease) (7) Coagulopathy (8) Acute renal failure (9) Necrotizing colitis Symptom Scale: (1) Pain, generalized 0-10 Scale: Unable to quantify (patient intubated.) (2) Dyspnea and respiratory abnormalities 0-10 Scale: Unable to quantify (patient intubated.) Pertinent Non-Medical Issues Psychosocial:He was born in [place] and moved around [facility] extensively after his parents were . He was never in the . He obtained his GED and worked in [employer] and most recently was a [employer]er. He enjoys [place], [employer] and video games. He has been with his for over 20 years. . Spiritual: Not important to him. . Legal: No known issues. . Ethical issues impacting care: No known issues. . Important Contacts Spouse: Cielo Connors . Prognosis His prognosis is very poor. He appears to have necrotizing colitis and is now hypotensive and tachycardic. Family plans to proceed with surgery if Dr. Salas will operate. Patient's condition continues to decline and he is at significant risk of CODE BLUE status. Neurologically, he has been confused and agitated, he has suffered respiratory failure and is now ventilated, he is currently tachycardic and hemodynamically unstable, he has significant liver dysfunction and cirrhosis with likely necrotic bowel. He has multisystem organ failure and a grim prognosis. . Code Status: Full Code Plan PLAN: Legal decision maker: His , Cielo is his legal proxy per [place] statutes. Goals: Aggressive CODE STATUS: Full code SYMPTOMS: * Pain: He is had significant complaints of pain, primarily abdominal, likely secondary to the necrotic process, possible ileus, abdominal distention. He is also at risk for discomfort from invasive lines and bedbound status. He is currently sedated pending surgical evaluation. * Dyspnea: He is now ventilated. His blood gas showed significant acidosis, mixed, both metabolic and respiratory. He is tachypneic on the ventilator. He has a long smoking history as well as COPD. If he survives surgery, he may require an extended ventilator time and progressed to tracheostomy and PEG tube placement. SUMMARY This is a 42-year-old with a significant history of alcohol abuse, tobacco abuse now admitted with suspected necrotic bowel. He has hyperbilirubinemia, severe liver disease and acute alcohol withdrawal. He is at significant risk for life-threatening events and has a poor prognosis with her he undergo surgery or not. Per specialists opinion he will likely without intervention , however surgical risk is high. Family remains very aggressive in their goals. He would be hospice appropriate should there goals change. Palliative care will continue to follow the patient during hospital course as condition evolves, to assist patient/decision-maker with understanding of their medical conditions, weighing benefits/burdens of treatment options, for clarification of goals of treatment. Additionally will assist with any symptoms of palliative concern. . Time Spent Time Periods: 16:00-17:30 Face to Face Time (mins): 45 >50% Counseling/Coord of Care: Yes Thank you for the opportunity to participate in the care of Mr. Connors. Attestation To help prompt me to consider important information that might be impacting today's encounter and assessment, information from prior notes written by myself or my colleagues may have been "brought forward" into today's note. My signature on this note, however, is an attestation that I personally performed the exam, history, and/or decision-making noted today, and, unless otherwise indicated, the interactions with patient, family, and staff as well as the review of records all occurred today. I also attest that the listed assessment and stated plan reflect my best clinical judgment today based on the combination of historical information, prior notes, and today's exam/ interactions. When time spent is documented, it refers only to time spent today by the signer, or if indicated, combined time spent today by collaborating physician/nurse practitioner. . Antoinette Barlow Dec 03, 2017 17:31
--- NOTE | 2017-12-03 17:39 | PD.PROCEDR ---
Central Line Procedure REASON FOR PROCEDURE Central venous access PROCEDURE PERFORMED Central line placement:Right IJ CVP CONSENT Informed consent for procedure was obtained . The risks and benefits of the procedure were discussed to include but limited to bleeding, clot formation, infection, and even . ANESTHESIA Local injection of 1% Lidocaine DESCRIPTION OF THE PROCEDURE The patient was placed in supine, mild Trendelenburg position. The area was exposed and cleansed with ChloraPrep, times two. Large sterile drape was used to cover the patient, with the site exposed, under sterile conditions including cap, face mask, sterile gown, and sterile gloves. On single attempt, the introducer needle was inserted with negative pressure in syringe and venous flash was obtained. The guide wire was then advanced without any restriction and the needle was removed. The dilator was used without any complications. Using Seldinger technique the catheter was advanced over the guide wire to a depth of 20 centimeters. The guide wire was removed. All ports were aspirated with dark venous blood return and flushed easily with sterile saline. All ports were capped. Antibiotic disc was placed around central line at puncture site. The central line was secured to the skin with two interrupted 2.0 silk sutures. The area was bandaged with sterile see-through central line bandage. RADIOLOGICAL DATA Ultrasound guidance was used to locate right IV vein. Check CXR ordered to verify line placement COMPLICATIONS: No apparent complications ESTIMATED BLOOD LOSS: Less than 1 cc. Carla Rasmussen MD Dec 03, 2017 17:39
[2017-12-03] MEDS ORDERED: PHENYLEPHRINE INJ 40 MG in DEXTROSE 5% IN WATE 500 ML INJ 496 ML IV PRN ×2 (17:45)
[2017-12-03 17:52] LABS: CERULOPLASMIN 33 mg/dL (18-36)
[2017-12-03] MEDS ORDERED: Central Line Short Term Adult 7Fr or larger PRN NS Lock Flush IV FLUSH (18:15)
--- NOTE | 2017-12-03 18:21 | RADRPT ---
EXAM DATE/TIME: 12/03/2017 17:43 [facility] COMPARISON: CHEST SINGLE AP, December 03, 2017, 13:39. INDICATIONS : Central line placement MEDICAL HISTORY : Thyroid disease. Seizures. Hypertension. Gall bladder disease. Hernia. GERD. Liver disease SURGICAL HISTORY : Right inguinal hernia. Orthopaedic surgery ENCOUNTER: Initial ACUITY: 1 day PAIN SCORE: Non-responsive. LOCATION: Bilateral chest FINDINGS: A single view of the chest demonstrates the endotracheal, nasogastric tube and right IJ central line are in good position. There is no visible pneumothorax. Mild bibasilar atelectasis.. The cardiomedia stinal contours are unremarkable. Osseous structures are intact. CONCLUSION: Central lokesh in good position. ET tube remains in good position.. Imtiaz Mendez MD on December 03, 2017 at 18:17 Board Certified Radiologist. This report was verified electronically.
[2017-12-03] MEDS ORDERED: INSULIN NovoLIN REGULAR SUPPLEMENTAL SCALE SQ SCH (20:00)
[2017-12-03] MEDS ORDERED: SODIUM BICARBONATE 8.4% INJ 150 MEQ in DEXTROSE 5% IN WATE 1000ML INJ 1,000 ML IV SCH ×2 (20:00)
[2017-12-03] MEDS ORDERED: NOREPINEPHRINE 4 MG/D5W 250 ML IV PRN (20:00)
--- NOTE | 2017-12-03 20:22 | MB ---
cc: SNOW LLAMAS MD DATE OF CONSULTATION 12/03/[address] Rasmussen. REASON FOR CONSULTATION Leukocytosis, sepsis, ischemic colitis. HISTORY OF THE PRESENT ILLNESS This is a 42-year-old white male who has a history of cirrhosis. The patient was admitted to the hospital 11/28 after seizure. The patient has been treated for alcohol withdrawal. He had evaluation including CT scan of the abdomen on 11/29 which showed evidence of cirrhosis and portal vein hypertension and marked splenomegaly, along with cholelithiasis and diffuse gallbladder wall thickening. The patient was transferred to the intensive care unit after developing symptoms of acute alcohol withdrawal. He was intubated. Subsequent evaluation included CT scan of the abdomen repeated today which shows pneumatosis colitis within the ascending colon suggesting necrotizing colitis, possibly from ischemic bowel. The patient is currently on the ventilator on 100% FIO2. His white blood cell count has increased to 26.6 and he is tachycardiac. Blood pressure at one point today was 80/46. Current blood pressure is 128/46 and the heart rate is 133. The patient was evaluated by surgery and plans are to take him to surgery today for the abdominal process. He has also developed acute renal failure with creatinine increasing to 2.3 compared to 0.83 yesterday. PAST MEDICAL HISTORY 1. Asthma. 2. Hypertension. 3. Cirrhosis of the liver. 4. Right inguinal hernia repair. ALLERGIES NO KNOWN DRUG ALLERGIES. MEDICATIONS 1. Levaquin. 2. Ertapenem. 3. Metronidazole. 4. DuoNeb. 5. Protonix. 6. Rifaximin. 7. Trental. 8. Nicotine patch. 9. Thiamine. SOCIAL HISTORY Heavy alcohol use. No tobacco. No illicit drugs. FAMILY HISTORY The patient's mother recently from leukemia. REVIEW OF SYSTEMS Unable to obtain. PHYSICAL EXAMINATION GENERAL: This is a well-developed male who appears chronically ill. VITAL SIGNS: Include temperature of 98.0, heart rate 133. Respirations per ventilator. HEENT: Unable to fully assess since he cannot cooperate. The sclerae is markedly jaundiced. Oropharynx intubated. NECK: No swelling or adenopathy. LUNGS: Decreased breath sounds bilateral. HEART: Tachycardiac. No murmurs audible. ABDOMEN: Distended, soft, diminished bowel sounds. RECTAL: Not performed. EXTREMITIES: No clubbing or cyanosis. 1+ edema at the lower extremities and upper extremities. Multiple ecchymotic areas over the arms and abdomen. SKIN: Diffuse jaundice. PSYCHIATRIC: Unable to assess. NEUROLOGIC: Unable to assess. LABORATORY DATA WBC 26.6, 19% bands, 66% neutrophils. Hemoglobin 15.2, platelets 149. Creatinine 2.81, BUN 53, sodium 141, AST 149, ALT 69. Alkaline phosphatase 305. IMPRESSION 1. Leukocytosis likely secondary to ischemic colitis. 2. Ischemic colitis. 3. Sepsis syndrome. 4. Acute respiratory failure. 5. Acute kidney disease. RECOMMENDATIONS 1. Discontinue Levaquin. 2. Continue ertapenem. 3. Continue metronidazole. 4. Monitor blood cultures. The patient is very critically ill currently. Further recommendations will be given upon followup. Snow Llamas MD FD/KK /4:15 PM /7:51 PM
[2017-12-03] MEDS ORDERED: MORPHINE SULFATE 4 MG/ML INJ IV PUSH PRN (22:00)
[2017-12-04] MEDS ORDERED: Central Line Short Term Adult 7Fr or larger Daily NS Lock Flush IV FLUSH SCH (09:00)
[2017-12-04] MEDS ORDERED: ERTAPENEM SODIUM 1000 MG VIAL IV SCH (09:00)
[2017-12-04] MEDS ORDERED: ERTAPENEM SODIUM 1000 MG VIAL IM SCH (09:00)
[2017-12-04] MEDS ORDERED: LEVOFLOXACIN 250 MG PREMIX INJ 50 ML IV SCH (13:00)
--- NOTE | 2017-12-04 17:18 | HHI.DS ---
Summary Note Date of : Dec 03, 2017 Time Of : 2153 Admission Date Nov 28, 2017 at 10:01 Admitting Diagnosis Hepatic encephalopathy, withdrawal seizure Diagnosis at Time of : Procedures 12/03 - intubation Brief History 42-year-old white male with alcoholic liver cirrhosis, HTN, and COPD presents after a possible seizure at home. Per chart review patient's reported that he got out of bed confused. He then clenched up his arms and started shaking. His helped him to the floor where he continued to be clenched and shaking and was not responding to her when she was talking to him. She then called 911. He seemed to come back to when the EMS arrived at the house. He states that he does not remember anything that happened from this morning. He was confused and tired. No achy muscles. Of note he quit drinking alcohol a day and a half prior to admission. He would drink a 12 pack of beer a day at minimum up to a case a day. He had previously quit alcohol but started up again in September when his mother . He then decided to quit cold turkey. Lately he has been feeling shaky, having blurry vision. He was admitted to medicine for with diagnosis of alcohol dependence when he developed severe alcohol withdrawal symptoms requiring to be transferred to ICU and started on Precedex drip. CBC/BMP: 12/03/17 1107 12/03/17 1107 Significant Findings Laboratory Tests Test 12/02/17 05:30 12/02/17 07:01 12/02/17 07:27 12/03/17 06:12 Urine Color DARK-YELLOW (YELLW/STRAW) Urine Turbidity HAZY (CLEAR) Urine Bilirubin LARGE (NEG) Urine Bacteria RARE /hpf (NONE) Urine Mucus FEW /lpf (OCC) Red Blood Count 3.28 MIL/MM3 (4.50-5.90) Hemoglobin 12.1 GM/DL (13.0-17.0) Hematocrit 34.1 % (39.0-51.0) Mean Corpuscular Volume 104.1 FL (80.0-100.0) Mean Corpuscular Hemoglobin 36.9 PG (27.0-34.0) Red Cell Distribution Width 22.5 % (11.6-17.2) Platelet Count 44 TH/MM3 (150-450) Neutrophils % (Manual) 79 % (16-70) Lymphocytes % 1 % (9-44) Monocytes % 15 % (0-8) Myelocytes 1 % (0-0) Platelet Estimate LOW (NORMAL) Platelet Morphology Comment ENLARGED (NORMAL) Target Cells 2+ (NORMAL) Blood Urea Nitrogen 25 MG/DL (7-18) Random Glucose 151 MG/DL (74-106) Albumin 2.4 GM/DL (3.4-5.0) Calcium Level 8.3 MG/DL (8.5-10.1) Alkaline Phosphatase 257 U/L (45-117) Aspartate Amino Transf (AST/SGOT) 112 U/L (15-37) Total Bilirubin 29.1 MG/DL (0.2-1.0) Potassium Level 3.4 MEQ/L (3.5-5.1) Chloride Level 109 MEQ/L (98-107) Ammonia 99 MCMOL/L (11-32) Blood Gas HCO3 13 mmol/L (22-26) Blood Gas Base Excess -15.2 mmol/L (-2-2) Arterial Blood pH 7.11 (7.380-7.420) Arterial Blood Partial Pressure O2 178 mmHg (61-120) Test 12/03/17 08:03 12/03/17 11:07 12/03/17 14:27 12/03/17 14:45 Blood Urea Nitrogen 50 MG/DL (7-18) 53 MG/DL (7-18) Creatinine 2.30 MG/DL (0.60-1.30) 2.81 MG/DL (0.60-1.30) Random Glucose 176 MG/DL (74-106) 159 MG/DL (74-106) Albumin 2.7 GM/DL (3.4-5.0) 2.6 GM/DL (3.4-5.0) Alkaline Phosphatase 289 U/L (45-117) 305 U/L (45-117) Aspartate Amino Transf (AST/SGOT) 141 U/L (15-37) 149 U/L (15-37) Total Bilirubin 37.8 MG/DL (0.2-1.0) 39.5 MG/DL (0.2-1.0) Chloride Level 108 MEQ/L (98-107) Carbon Dioxide Level 18.8 MEQ/L (21.0-32.0) 19.6 MEQ/L (21.0-32.0) Estimat Glomerular Filtration Rate 31 ML/MIN (>89) 25 ML/MIN (>89) Ammonia 53 MCMOL/L (11-32) White Blood Count 26.6 TH/MM3 (4.0-11.0) Red Blood Count 4.24 MIL/MM3 (4.50-5.90) Mean Corpuscular Volume 104.9 FL (80.0-100.0) Mean Corpuscular Hemoglobin 35.9 PG (27.0-34.0) Red Cell Distribution Width 24.1 % (11.6-17.2) Platelet Count 149 TH/MM3 (150-450) Neutrophils (%) (Auto) 78.9 % (16.0-70.0) Lymphocytes (%) (Auto) 4.6 % (9.0-44.0) Monocytes (%) (Auto) 16.2 % (0.0-8.0) Neutrophils # (Auto) 21.0 TH/MM3 (1.8-7.7) Monocytes # (Auto) 4.3 TH/MM3 (0-0.9) Band Neutrophils % 19 % (0-6) Lymphocytes % 2 % (9-44) Monocytes % 13 % (0-8) Neutrophils # (Manual) 22.6 TH/MM3 (1.8-7.7) Target Cells 2+ (NORMAL) Prothrombin Time 16.1 SEC (9.8-11.6) Blood Gas HCO3 16 mmol/L (22-26) Blood Gas Base Excess -11.6 mmol/L (-2-2) Arterial Blood pH 7.15 (7.380-7.420) Arterial Blood Partial Pressure CO2 48 mmHg (38-42) Arterial Blood Partial Pressure O2 174 mmHg (61-120) Arterial Blood Oxygen Content 21.3 Vol % (12.0-20.0) Test 12/03/17 18:15 Lactic Acid Level 9.2 mmol/L (0.4-2.0) Imaging Last Impressions Abdomen/Pelvis CT 12/03/17 0000 Signed Impressions: Service Date/Time: Sunday, December 03, 2017 11:36 - CONCLUSION: 1. There is pneumatosis colitis predominantly within the ascending colon suggesting necrotizing colitis possibly from ischemic bowel. Multiple dilated small bowel loops are also noted proximally. Ismael Gonzalez MD Abdomen X-Ray 12/03/17 0000 Signed Impressions: Service Date/Time: Sunday, December 03, 2017 08:00 - CONCLUSION: Multiple dilated bowel loops can be seen with ileus or obstruction. Ismael Gonzalez MD Abdomen Ultrasound 12/02/17 0000 Signed Impressions: Service Date/Time: Saturday, December 02, 2017 08:42 - CONCLUSION: 1. No free fluid identified. 2. Moderate splenomegaly. Azeem Hartman MD Head CT 11/28/17 0000 Signed Impressions: Service Date/Time: Tuesday, November 28, 2017 08:23 - CONCLUSION: No acute disease. Francesco Hernandez MD Chest X-Ray 11/28/17 0000 Signed Impressions: Service Date/Time: Tuesday, November 28, 2017 08:29 - CONCLUSION: Cardiomegaly. No acute pulmonary disease. Artur Magaña MD Hospital Course 11/28: Patient brought to ED, assessed in ED, given ativan and admitted to Family Medicine service, placed on CIWA. 1unit PLTs transfused. 11/29: Family medicine service consults Heme/Onc for thrombocytopenia to 11,000 and GI for cirrhosis; in evening, Family Medicine paged for CIWA scores of 28 with increased sxs from alcohol withdrawal. Pt transferred to ICU and Intensivists consulted. 2units PLTs and 1unit FFP transfused. 11/30: Patient remains encephalopathic and intermittently severely agitated. RASS -3 or +1. On maximum Precedex infusion for alcohol withdrawal and agitation. ROS unobtainable due to mental status. 12/01 Patient remains encephalopathic on Precedex dip 1mic/kg/hr for alcohol withdrawal and agitation with efforts to wean. Afebrile. 12/02 No events overnight. Patient is more awake and alert this morning. Remains on Precedex drip 1.2mics/kg/hr for alcohol withdrawal and agitation with efforts to wean. Afebrile. Pt able to take Lactulose PO to begin reducing ammonia level which is 99 today (highest recorded) 12/03 Patient is awake on Precedex 0.2mics. T:99.7. Renal function worse today with Cr:2.30 from 0.83. When insertion of NG tube was attempted to evacuate the contents from the stomach, pt began vomiting red colored liquid and possibly aspirated some contents. Pt began having respiratory distress requiring suctioning, then intubation to protect the airway. Subsequent CT abdomen/pelvis revealed pneumatosis colitis with air-fluid levels in the colon. Subsequent labs revealed WBC 26.6 and Tbili 39.5. General surgery consulted for consideration of exploratory laparotomy. Palliative care consulted. In late afternoon, patient's status determined to be too high risk for surgery and pallaitive measures undertaken. Patient was extubated and given morphine for pain control. Time of declared at 2154 hours. Quinn Valdez MD R1 Dec 04, 2017 17:17
[2017-12-05 03:50] LABS: MITOCHONDRIAL ABS 28.2 U (<=20.0)
--- NOTE | 2017-12-05 06:24 | EKG ---
Date Performed: 12/03/2017 Time Performed: 13:52:20 PTAGE: 42 years EKG: Sinus tachycardia ABNORMAL RHYTHM ECG Compared to PREVIOUS TRACING , the sinus tachycardia is new. The present tracing suggests possible at rial enlargement that is also new. Clinical correlation is advised. PREVIOUS TRACIN11/28/2017 08.0 0 DOCTOR: Demi Cruz Interpretating Date/Time 12/05/2017 06:23:34
[2017-12-05] MEDS ORDERED: LEVOFLOXACIN 750 MG PREMIX INJ 150 ML IV SCH (09:00)
== END 2017-12-03 21:54 | disposition expired | DRG 896 ==
LOC: NEPC 07:51 → NEDA 10:01 → N05A 13:24 → HIME 11-29 23:25
PROVIDERS: ADMIT Family Medicine; ATTEND Family Medicine
PROC: 6A551Z2 Pheresis of Platelets, Multiple (ICD-10-PCS; 2017-11-28)
PROC: 30233K1 Transfusion of Nonautologous Frozen Plasma into Peripheral Vein, Percutaneous Approach (ICD-10-PCS; 2017-11-29)
PROC: 0T9B70Z Drainage of Bladder with Drainage Device, Via Natural or Artificial Opening (ICD-10-PCS; principal; 2017-12-02)
PROC: 05HM33Z Insertion of Infusion Device into Right Internal Jugular Vein, Percutaneous Approach (ICD-10-PCS; 2017-12-03)
PROC: 5A1935Z Respiratory Ventilation, Less than 24 Consecutive Hours (ICD-10-PCS; 2017-12-03)
PROC: 0BH17EZ Insertion of Endotracheal Airway into Trachea, Via Natural or Artificial Opening (ICD-10-PCS; 2017-12-03)
DX: F10.231 Alcohol dependence with withdrawal delirium (principal); K76.7 Hepatorenal syndrome; J96.00 Acute respiratory failure, unspecified whether with hypoxia or hypercapnia; R65.21 Severe sepsis with septic shock; D61.818 Other pancytopenia; N17.9 Acute kidney failure, unspecified; A41.9 Sepsis, unspecified organism; K55.069 Acute infarction of intestine, part and extent unspecified; K55.9 Vascular disorder of intestine, unspecified; D68.4 Acquired coagulation factor deficiency; E87.2 Acidosis; K76.6 Portal hypertension; G40.89 Other seizures; E87.1 Hypo-osmolality and hyponatremia; R44.3 Hallucinations, unspecified; D69.59 Other secondary thrombocytopenia; E87.70 Fluid overload, unspecified; K70.31 Alcoholic cirrhosis of liver with ascites; K70.11 Alcoholic hepatitis with ascites; K70.40 Alcoholic hepatic failure without coma; I10 Essential (primary) hypertension; M19.90 Unspecified osteoarthritis, unspecified site; J44.9 Chronic obstructive pulmonary disease, unspecified; K21.9 Gastro-esophageal reflux disease without esophagitis; H53.8 Other visual disturbances; D53.9 Nutritional anemia, unspecified; K80.20 Calculus of gallbladder without cholecystitis without obstruction; R31.0 Gross hematuria; Z78.1 Physical restraint status; Z92.3 Personal history of irradiation; Z87.891 Personal history of nicotine dependence; Z51.5 Encounter for palliative care; Z80.6 Family history of leukemia; K63.89 Other specified diseases of intestine; K52.89 Other specified noninfective gastroenteritis and colitis; F41.9 Anxiety disorder, unspecified; T17.920A Food in respiratory tract, part unspecified causing asphyxiation, initial encounter
CPT/HCPCS: 31500; 36430; 36556; 36600; 36620; 70450; 71045; 74018; 74176; 74177; 76700; 76705; 76937; 80048; 80053; 80074; 80076; 80307; 81001; 82103; 82105; 82140; 82390; 82728; 82805; 82948; 83520; 83540; 83550; 83605; 83690; 83735; 84100; 85007; 85025; 85027; 85060; 85379; 85384; 85610; 85730; 86038; 86255; 86850; 86900; 86901; 86920; 86927; 87040; 87086; 87641; 93005; 94002; 94640; 96374; C9113; J1335; J1630; J1940; J1956; J2060; J2270; J2370; J2930; J3010; J3411; J3430; J3480; J7030; J7040; J7050; J7060; P9017; P9035; Q9967